=== PATIENT | male | born 1990 | race Caucasian/White ===

== ENCOUNTER 2022-12-21 09:59 | Emergency (ER) | payer OTHER, SELFPAY ==
[2022-12-21 10:03] VITALS: BP 138/85; PULSE 62; RESP 18; TEMP 36.6; O2SAT 99; BMI 31.2
--- NOTE | 2022-12-21 10:13 | ED.DENTAL1 ---
HPI - Dental/Oral General Chief complaint: Dental/Oral Stated complaint: DENTAL Time Seen by Provider: 12/21/22 10:13 Source: patient Mode of arrival: walk-in Limitations: no limitations History of Present Illness HPI Narrative: pt presents to emergency department complaining of left tooth 19 pain. Patient states tooth has been back for a while however yesterday started hurting him. He has taken [id number] medications without any relief. States one year ago he had the same thing happen and he got better after the give him antibiotics. Denies any fever, swelling, difficulty swallowing. Patient is working and have an appointment with a dentist. Related Data Previous Rx's Medication Instructions Recorded amoxicillin 500 mg capsule 500 mg PO TID 10 days #30 caps 12/21/22 tramadol 50 mg tablet 50 mg PO Q8H PRN pain 5 days #14 12/21/22 tabs Allergies Allergy/AdvReac Type Severity Reaction Status Date / Time No Known Drug Allergies Allergy Verified 12/21/22 10:07 Review of Systems ROS Status of ROS 10 or more systems reviewed and unremarkable except as noted in history and below PFSH PFS Social History Smoking status: Former smoker Exam Narrative Exam Narrative: Nurses notes and vital signs reviewed and patient is not hypoxic. General: The patient is comfortable, alert and oriented x3, well appearing, non toxic in no apparent distress. Head: Atraumatic and normocephalic. Eyes: Normal conjunctiva ENT: The oropharynx is normal. No pharyngeal erythema, uvular edema, tonsillar exudates, asymmetry or trismus. Uvula is midline. Mouth is normal to inspection with the exception of a pain on percussion of the tooth #19 and evidence of dental caries With erosion of the enamel. There is no evidence of facial asymmetry or abscess formation. Floor of the mouth is soft. No tenderness in the submental or submandibular space. No tongue elevation or deviation. The patient has no evidence of periapical abscess, gingivitis or other acute pathology. Airway is patent. Neck: The neck demonstrates normal range of motion. No meningeals signs are present. No stridor. No masses or lymphandenopathy noted. Respiratory: No acute distress, lungs are clear to auscultation, no wheezing, rhonchi, or rales noted. No stridor or retractions are noted. Cardiovascular: Regular rate and rhythm Skin: The skin exam shows no evidence of rashes Neuro: Alert and oriented x4, normal speech Lymphatic: No cervical lymphadenopathy Constitutional Vital Signs, click to edit/add: Last Vital Signs Temp 98 F 12/21/22 10:03 Pulse 62 12/21/22 10:03 Resp 18 12/21/22 10:03 BP 138/85 12/21/22 10:03 Pulse Ox 99 12/21/22 10:03 O2 Del Method Room Air 12/21/22 10:03 Course Vital Signs Vital signs: Vital Signs Temperature 98 F 12/21/22 10:03 Pulse Rate 62 12/21/22 10:03 Respiratory Rate 18 12/21/22 10:03 Blood Pressure 138/85 12/21/22 10:03 Pulse Oximetry 99 12/21/22 10:03 Oxygen Delivery Method Room Air 12/21/22 10:03 Temperature 98 F 12/21/22 10:03 Pulse Rate 62 12/21/22 10:03 Respiratory Rate 18 12/21/22 10:03 Blood Pressure 138/85 12/21/22 10:03 Pulse Oximetry 99 12/21/22 10:03 Oxygen Delivery Method Room Air 12/21/22 10:03 MDM - Dental/Oral MDM Narrative Medical decision making narrative: History and physical consistent with dental caries, there is no drainable abscess. Patient was started on clindamycin. A prescription for tramadol. Advised not to operate heavy machinery [address] while taking tramadol.Patient will follow up with dentist. No additional indication for emergent studies at this time. I answered all questions. Discussed discharge instructions including standard anticipatory guidance and what should prompt a return to the emergency department, including if they get worse are not getting better or develops any new or concerning symptoms. I've given them specific time frame in which to follow-up, and who to follow-up with. The patient demonstrates understanding. Patient is nontoxic and stable for discharge with outpatient follow-up. This note was created with the assistance of a speech recognition program. Although the intention is to generate documents that actually reflects the content of the visit, no guarantees can be provided that every mistake has been identified and corrected by editing. Differential Diagnosis Differential diagnosis: Likely gingival abscess, dental caries, toothache, dental abscess and fracture of tooth Discharge Plan Discharge Chief Complaint: Dental/Oral Clinical Impression: Dental caries Patient Disposition: Home, Self-Care Time of Disposition Decision: 10:16 Condition: Good Mode of Transportation: Private Vehicle Prescriptions / Home Meds: New amoxicillin 500 mg capsule 500 mg PO TID 10 Days Qty: 30 0RF tramadol 50 mg tablet 50 mg PO Q8H PRN (Reason: pain) 5 Days Qty: 14 0RF Instructions: Toothache (ED) Stand Alone Forms: Portal Instructions Referrals: MARLENE PEREZ APRN [Physician] - 1 week
[2022-12-21] MEDS: ACETAMINOPHEN 500 MG TABLET 1000 MG PO (10:52)
== END 2022-12-21 10:49 | disposition home or self-care (01) ==
PROVIDERS: Emergency Provider Emergency Medicine
DX: K02.9 Dental caries, unspecified (principal); Z87.891 Personal history of nicotine dependence
CPT/HCPCS: 99282

== ENCOUNTER 2023-10-25 07:16 | Emergency (ER) | payer OTHER, SELFPAY ==
[2023-10-25 07:18] VITALS: BP 134/87; PULSE 98; TEMP 36.5; O2SAT 98; BMI 71.6
--- NOTE | 2023-10-25 07:34 | ED.SKABFB1 ---
HPI - Skin/Abscess/Foreign Bdy General Chief complaint: Skin/Abscess/Foreign Body Stated complaint: RASH Time Seen by Provider: 10/25/23 07:34 Source: patient Mode of arrival: walk-in History of Present Illness HPI narrative: This patient's very concerned about having poison michlele. 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 He was wearing gloves and glasses yesterday but was around a lot of poison michelle. Has been this for many years. He is concerned that he might get it in his eyes because his eyelids are quite red and swollen now. He has no ocular complaints. He does not have contact anyplace else on his body. Again there is no purulent drainage from his eyes or conjunctivitis or photosensitivity. No other complaints today. He does not have diabetes or hypertension. Related Data Previous Rx's ?Medication ?Instructions ?Recorded amoxicillin 500 mg capsule 500 mg PO TID 10 days #30 caps 12/21/22 tramadol 50 mg tablet 50 mg PO Q8H PRN pain 5 days #14 12/21/22 tabs Allergies Allergy/AdvReac Type Severity Reaction Status Date / Time No Known Drug Allergies Allergy Verified 12/21/22 10:07 [facility] Social History Smoking status: Former smoker Exam Narrative Exam Narrative: Well-hydrated well-nourished male. His upper eyelids and periorbital area are mildly erythematous and itchy and swollen. There is no vesicles or ulcerations. The conjunctiva the sclera and the eye itself are completely normal. The rest the facial structures and skin are normal. Constitutional Vital Signs, click to edit/add: Last Vital Signs Temp 97.7 F 10/25/23 07:18 Pulse 98 H 10/25/23 07:18 Resp 18 10/25/23 07:18 BP 134/87 10/25/23 07:18 Pulse Ox 98 10/25/23 07:18 Course Vital Signs Vital signs: Vital Signs Temperature 97.7 F 10/25/23 07:18 Pulse Rate 98 H 10/25/23 07:18 Respiratory Rate 18 10/25/23 07:18 Blood Pressure 134/87 10/25/23 07:18 Pulse Oximetry 98 10/25/23 07:18 Temperature 97.7 F 10/25/23 07:18 Pulse Rate 98 H 10/25/23 07:18 Respiratory Rate 18 10/25/23 07:18 Blood Pressure 134/87 10/25/23 07:18 Pulse Oximetry 98 10/25/23 07:18 MDM - Skin/Abscess/Foreign Bdy MDM Narrative Medical decision making narrative: Patient is requesting steroids because he is known to get poison michelle quite severely. He had known exposure and already has some swelling of the skin around the periorbital area. This is not cellulitis. He is afebrile and looks very healthy. He is requesting oral steroids Discharge Plan Discharge Stand Alone Forms: Portal Instructions Chief Complaint: Skin/Abscess/Foreign Body Clinical Impression: Contact dermatitis Patient Disposition: Home, Self-Care Time of Disposition Decision: 07:36 Prescriptions / Home Meds: No Action amoxicillin 500 mg capsule 500 mg PO TID 10 Days Qty: 30 0RF tramadol 50 mg tablet 50 mg PO Q8H PRN (Reason: pain) 5 Days Qty: 14 0RF Print Language: Mauritian Additional Instructions: Cold compresses with Epsom salt to the affected area Referrals: Physician,Non-Staff, MD [Primary Care Provider] - 1 week
== END 2023-10-25 07:42 | disposition home or self-care (01) ==
PROVIDERS: Emergency Provider Emergency Medicine Emergency Medical Services
DX: L25.9 Unspecified contact dermatitis, unspecified cause (principal)
CPT/HCPCS: 99283

== ENCOUNTER 2024-01-05 20:28 | Emergency (ER) | payer OTHER, SELFPAY ==
[2024-01-05 20:44] VITALS: BP 155/96; PULSE 54; TEMP 36.6; O2SAT 97; BMI 33.1
--- NOTE | 2024-01-05 20:47 | PC.NURSE ---
Pain to right lower jaw from tooth infection.
--- NOTE | 2024-01-05 20:54 | ED_ITS ---
HPI - Dental/Oral General Chief complaint: Dental/Oral Stated complaint: SEVERE PAIN WITH MOUTH/TOOTH INFECTION Time Seen by Provider: 01/05/24 20:43 Source: patient Mode of arrival: walk-in Limitations: no limitations History of Present Illness HPI Narrative: Patient is a 33-year-old male who presents to the emergency department for the evaluation of dental pain that began today. He was seen in this emergency [facility] 1 year ago for dental pain, he states he had leftover amoxicillin so he took his first dose of that tonight but he states his pain is 1000/10 although he did not take any medications today to help with his pain. He feels his face is slightly swollen, no drainage from the tooth. He does not have a dentist. He denies fevers or vomiting. Related Data Home Medications ?Medication ?Instructions ?Recorded ?Confirmed No Known Home Medications 01/05/24 01/05/24 Previous Rx's ?Medication ?Instructions ?Recorded clindamycin HCl 150 mg capsule 300 mg (2 x 150 mg) PO Q6H 10 days 01/05/24 #80 caps ketorolac 10 mg tablet 10 mg PO TID PRN pain #10 tabs 01/05/24 tramadol 50 mg tablet 50 mg PO Q6H PRN pain 3 days #12 01/05/24 tabs Allergies Allergy/AdvReac Type Severity Reaction Status Date / Time No Known Drug Allergies Allergy Verified 01/05/24 21:01 Review of Systems ROS Constitutional Denies: fever or chills Ears, nose, mouth, and throat Reports: mouth pain; Denies: throat pain or nasal congestion Respiratory Denies: shortness of breath Gastrointestinal Denies: nausea or vomiting Integumentary/Breast Denies: rash Hematologic/Lymphatic Denies: easy bruising or easy bleeding PFSH PFS Social History Smoking status: Former smoker Exam Narrative Exam Narrative: Gen.: Awake, alert, in no distress Head: Normocephalic, atraumatic ENT: Moist mucous membranes, multiple dental caries. Tooth #29 is eroded to the gumline, no abscess or drainage noted. No redness or swelling under the tongue. Clear speech. No noted mandibular or maxillary swelling Respiratory: No respiratory distress Extremities: Moves extremities equally Psych: Normal mood and affect Neuro: No focal neuro deficit Skin: Warm, dry, intact Constitutional Vital Signs, click to edit/add: Last Vital Signs Temp 98.6 F 01/05/24 21:01 Pulse 55 L 01/05/24 21:01 Resp 16 01/05/24 21:01 BP 154/98 H 01/05/24 21:01 Pulse Ox 100 01/05/24 21:01 O2 Del Method Room Air 01/05/24 21:01 Course Vital Signs Vital signs: Vital Signs Temperature 97.9 F 01/05/24 20:44 Pulse Rate 54 L 01/05/24 20:44 Respiratory Rate 18 01/05/24 20:44 Blood Pressure 155/96 H 01/05/24 20:44 Pulse Oximetry 97 01/05/24 20:44 Oxygen Delivery Method Room Air 01/05/24 20:44 Temperature 98.6 F 01/05/24 21:01 Pulse Rate 55 L 01/05/24 21:01 Respiratory Rate 16 01/05/24 21:01 Blood Pressure 154/98 H 01/05/24 21:01 Pulse Oximetry 100 01/05/24 21:01 Oxygen Delivery Method Room Air 01/05/24 21:01 MDM - Dental/Oral MDM Narrative Medical decision making narrative: Patient treated with tramadol, clindamycin. He was instructed to throw away leftover antibiotics. Follow-up with a dentist. Topical analgesia provided. Return to the ER if symptoms change or worsen SUPERVISED APC VISIT, PHYSICIAN ATTESTATION: Based on the medical record the care appears appropriate. ? Medical Records Attestation: I reviewed the patient's medical records. Discharge Plan Discharge Stand Alone Forms: Portal Instructions Chief Complaint: Dental/Oral Clinical Impression: Dental caries, Toothache Patient Disposition: Home, Self-Care Time of Disposition Decision: 21:01 Condition: Good Prescriptions / Home Meds: New clindamycin HCl 150 mg capsule 300 mg PO Q6H 10 Days Qty: 80 0RF tramadol 50 mg tablet 50 mg PO Q6H PRN (Reason: pain) 3 Days Qty: 12 0RF Rx Instructions: DX: K08.89 ketorolac 10 mg tablet 10 mg PO TID PRN (Reason: pain) Qty: 10 0RF No Action No Known Home Medications Print Language: [place] Instructions: Toothache (ED) Additional Instructions: Follow up with dentist Referrals: Physician,Non-Staff, [Primary Care Provider] - 1 week
[2024-01-05 21:01] VITALS: BP 154/98; PULSE 55; TEMP 37; O2SAT 100; BMI 32.5
--- OUTSIDE RECORDS SUMMARY | 2024-01-05 21:01 | XMS_ITS | CCD ---
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 75 Temp 97.8 F (36.6 C) Resp 18 Wt 117.9 kg (260 lb) SpO2 97% BMI 32.50 kg/m? Smoking Status Former BSA 2.5 m? Constitutional: Well-developed male sitting up comfortably. HENT: Head is atraumatic. Mucous membranes are moist, there is no lip or tongue swelling. There is no stridor, no drooling, no trismus. Eyes: Pupils are equal and reactive to light. No scleral icterus or remarkable injection. Conjunctivae pink. Extraocular movements are intact. There is some swelling noted around the eyes. There is no pain with extraocular movements. There is no redness or drainage. There are no lesions. No erythema or abscess or fluctuance. Neck: Normal range of motion. No tenderness. Cardiovascular: Normal heart rate. Normal rhythm. No murmurs, No rubs. No gallops. Pulmonary/Chest: Normal breath sounds. No respiratory distress. No wheezing. Abdomen: Soft, No tenderness. There is no guarding or rebound tenderness. : Exam done with RN Striper Spray Gun at bedside. Mall area of erythema noted to the shaft of the penis. No hernias. Bilaterally descended testicles and normal lie. No penile lesions or chancres. No regional lymphadenopathy. Normal cremesteric reflex. No signs of phimosis or paraphimosis. Back: There is no restriction in range of motion. There is no swelling; redness; or CVA tenderness. The spine is non tender. Extremities: Normal range of motion. Intact distal pulses symmetric and equal upper vs lower. Neurologic: The patient is awake and alert. No focal central or lateralizing neuro deficits. Skin: Warm; Adequate skin turgor. Excoriations noted to the left lower abdomen. Psychiatric: Affect normal Labs: Labs Reviewed - No data to display DIFFERENTIAL DIAGNOSIS: Based on the patient's history, physical exam, and associated clinical (more content not included)... Normal [facility] ED TRIAGEon 04-05-2022 [facility] Ed Triage Note ED Triage Note: Last filed note HNO ID: [id number] Author: David Mcdaniels RN Service: ? Author Type: Registered Nurse Filed: 04/05/222053 Note Text: Pt [facility] Pt recently exposed to poison giulia while working. Pt was seen at different facility yesterday received a steroid shot, after shower and nap he woke up with facial swelling and rash in groin. No other complaints noted. Normal [facility] ED Provider Noteson 04-04-20 ED Provider Notes Encounter Department : [facility] EMERGENCY ED Provider Notes by Ellen Stanley MD at 04/04/2022 11:52 AM Author: DEMETRIUS Sinhaervice: Emergency MedicineAuthor Type: ED Physician Filed: 04/05/2022 4:50 PMDate of Service: 04/04/2022 11:52 AMStatus: Signed Chief Engineer Research: Ellen Stanley MD (ED Physician) CHIEF COMPLAINT Chief Complaint Patient presents with -Poison Giulia Poison giulia in eyes, awoke this morning with this. HPI Peter Jones is a 31 y.o. male with a pertinent past medical history of anxiety and depression presenting with itchiness and puffiness about the eyes. He states that he was working outside over the last couple of days and was around poison giulia. He has had poison giulia before and had similar feelings around his eyes. Denies any actual eyeball pain, itching, drainage, vision changes. Some itching on his thighs but no rash. He took a benadryl with some relief. REVIEW OF SYSTEMS Constitutional: Denies fever, chills, fatigue, weakness, weight loss. Eyes: swelling and redness around the eyes. Denies pain, redness, drainage, visual changes. HEENT: Denies sore throat, congestion, drainage, ear pain, or hearing changes. Cardiovascular: Denies chest pain or palpitations. Respiratory: Denies SoB, cough, wheezing, or production of phlegm. GI: Denies pain, nausea, vomiting or diarrhea. : Denies hematuria, dysuria, urgency, frequency, or incontinence. Neuro: No reported syncope or dizziness. Denies headaches or stiff neck. No reported focal numbness or weakness. MSK: Denies any back, neck or extremity pain. No abnormal swelling. Skin: itching over thighs. No rashes. 10 point Review of Systems performed and are otherwise negative unless noted above. PAST MEDICAL HISTORY / FAMILY HISTORY Past Medical History: DiagnosisDate -Anxiety -Depression -Panic attacks Above past medical conditions reviewed and verified by me. SOCIAL HISTORY Social History Socioeconomic History -Marital status: Tobacco Use -Smoking status:Former Packs/day:1.00 Types:Cigarettes Quit date:04/11/2021 Years since quittin.9 -Smokeless tobacco:Former Vaping Use -Vaping Use:Former -Quit date:02/27/2019 Substance and Sexual Activity -Alcohol use:No -Drug use:Not Currently Types:Marijuana Comment: gummies -Sexual activity:Never Above social elements reviewed and verified by me. SURGICAL HISTORY History reviewed. No pertinent surgical history. CURRENT MEDICATIONS Outpatient Medications Marked as Taking for the 04/04/22 encounter (Hospital Encounter) MedicationSigDispenseRefill -diphenhydrAMINE (BENADRYL ALLERGY) 25 mg tabletTake 1 tablet (25 mg total) by mouth every 4 hours as needed for Allergies.24 tablet2 ALLERGIES No Known Allergies PHYSICAL EXAM VITAL SIGNS: ED Triage Vitals [04/04/22 0857] BP(!) 134/93 Temp97.7 ?F (36.5 ?C) Pulse70 Resp18 EnP571 % [id number] lb 4 oz (112.6 kg) [place] Coma Scale Score15 BMI (Calculated)31.1 General: The patient is well developed, well nourished and in no acute distress. Non-toxic appearing. Head: Normocephalic, atraumatic Eyes: No conjunctival injection, PERRL, and EOMI bilaterally. Mild bilateral periorbital swelling without lesions, tenderness, erythema, induration. ENT: No obvious oral lesions, MMM, uvula midline, no oropharyngeal erythema. Neck: supple, no obvious lymphadenopathy. Trachea midline. FRoM. Respiratory: No respiratory distress or stridor and speaking in full sentences. Equal chest rise bilaterally. Lungs clear to auscultation bilaterally without rales, rhonchi, or wheezing. Cardiovascular: Regular rate and rhythm without murmur, rub, or gallop. No peripheral edema in bilateral lower extremities. Equal radial pulses. Abdomen: Nondistended, soft with normal bowel sounds. No tenderness to palpation in all 4 quadrants. No guarding or rebound. Musculoskeletal: Full RoM in all extremities. No obvious deformities of all 4 extremities. Skin: Warm, dry. No rashes, lesions, or injuries noted. Neurological: Alert and Oriented X3. No gross focal deficits noted. Psychiatric: Normal thinking, cooperative patient EKG INTERPRETATION No results found for this visit on 04/04/22. ED COURSE / MEDICAL DECISION MAKING / DIFFERENTIAL DIAGNOSIS Peter Jones is a 31 y.o. male with swelling around eyes and concern for poison giulia exposure as described above. Afebrile, vitals stable, hemodynamically intact. Exam as above, notable for mild periorbital swelling but otherwise unremarkable. Allergies more likely. Poison giulia a possibility. No evidence of periorbital cellulitis, abscess, or septal cellulitis. Gave a dose of Solumedrol in the ED for symptoms and recommended use of benadryl and allergy medications as well as cool compresses and avoidance of itching the eyes. Discussed reasons to return to the ED and follow up with PCM. Patient in agreement with plan. Discharge (more content not included)... Normal [facility] ED Provider Noteson 01-04-20 ED Provider Notes Encounter Department : [facility] EMERGENCY ED Provider Notes by Jesenia Sol MD at 01/03/2022 8:51 PM Author: DEMETRIUS Herediaervice: -Author Type: ED Physician Filed: 01/03/2022 9:14 PMDate of Service: 01/03/2022 8:51 PMStatus: Signed Chief Engineer Research: Jesenia Sol MD (ED Physician) CHIEF COMPLAINT Chief Complaint Patient presents with -Dental Pain HPI Peter Jones is a 31 y.o. male who presents with complaints of left upper left lower dental pain. Is a 31-year-old male comes emerged department complaints of left upper and left lower lateral lower dental pain. The patient states that pains been going on about 3 days sharp stabbing in nature nonradiating constant. Is been taking Tylenol at home. The patient states last time he had this they placed him on antibiotics and steroid and he got better. He did not follow-up with a dentist after that. Patient states his pain is 9 out of 10. No fever nausea vomiting diarrhea any other symptoms. REVIEW OF SYSTEMS CONSTITUTIONAL:Denies fever, chills EYES: Denies vision changes ENT: Denies sore throat or ear pain CARDIOVASCULAR: Denies chest pain, palpitations RESPIRATORY: Denies cough or shortness of breath GI: Denies abdominal pain, nausea, vomiting, or diarrhea : Denies urinary frequency, urgency or dysuria MS:Denies back pain SKIN: Denies rash NEUROLOGIC: Denies headache, focal weakness or sensory changes ENDOCRINE: Denies polyuria or polydypsia LYMPHATIC: Denies swollen glands PSYCHIATRIC: Denies depression, suicidal ideation or homicial ideation PAST MEDICAL HISTORY Past Medical History: DiagnosisDate -Anxiety -Depression -Panic attacks FAMILY HISTORY No family history on file. SOCIAL HISTORY Social History Socioeconomic History -Marital status: Tobacco Use -Smoking status:Former Smoker Packs/day:1.00 Types:Cigarettes Quit date:04/11/2021 Years since quittin.7 -Smokeless tobacco:Former User Vaping Use -Vaping Use:Former -Quit date:02/27/2019 Substance and Sexual Activity -Alcohol use:No -Drug use:Not Currently Types:Marijuana Comment: gummies -Sexual activity:Never SURGICAL HISTORY History reviewed. No pertinent surgical history. CURRENT MEDICATIONS Outpatient Medications Marked as Taking for the 01/03/22 encounter (Hospital Encounter) MedicationSigDispenseRefill -amoxicillin-clavulanate (AUGMENTIN) 875-125 mg tabletTake 1 tablet by mouth 2 times a day for 10 days.20 tablet0 -predniSONE (DELTASONE) 20 mg tabletTake 3 tablets (60 mg total) by mouth daily for 4 days.12 each0 ALLERGIES No Known Allergies PHYSICAL EXAM VITAL SIGNS: ED Triage Vitals [01/03/222015] BP143/100 Temp98 ?F (36.7 ?C) Pulse59 Resp18 YuU2064 % [id number] lb (113.4 kg) Art Coma Scale Score15 BMI (Calculated)31.3 Constitutional: Non-toxic appearance HENT: Normocephalic, Atraumatic, Bilateral external ears normal, Oropharynx moist, mild erythema noted to the left upper lateral and left lower lateral gumline no exudate, poor dentition throughout no oral exudates, Nose normal Eyes: Conjunctiva normal, No discharge Neck: Normal range of motion, No tenderness, No nuchal rigidity Lymphatic: No lymphadenopathy noted Cardiovascular: Normal heart rate, Normal rhythm, No murmurs Thorax AND Lungs: Lung sounds normal Abdomen: Bowel sounds present, Soft, Nontender Skin: Warm, Dry, No rash Back: No CVA tenderness Rectal / Genital: Deferred Extremities: Intact distal pulses, No edema, No tenderness, No cyanosis Musculoskeletal: Good range of motion in all major joints. No major deformities noted Neurologic: Normal motor function, Normal sensory function, No focal deficits noted Psychiatric: Affect normal RADIOLOGY/PROCEDURES None Last Imaging results No results found for this visit on 01/03/22. LABS None No data to display COURSE AND MEDICAL DECISION MAKING Blood Pressure 143/100 Pulse 59 Temperature 98 ?F (36.7 ?C) Respiration 18 Height 6' 3 (1.905 m) Weight 250 lb (113.4 kg) Oxygen Saturation 100% Body Mass Index 31.25 kg/m? Is a 22-year-old male comes emerged department complaints of left upper and left lower dental pain over the last 3 days. No fever nausea vomiting diarrhea any other symptoms. On arrival to emergency room patient vital signs all found to be within normal limits but on physical examination the patient does have lateral gum erythema of the left upper and left lower. Poor dentition throughout. Likely early abscess. Patient was placed on Augmentin. Patient states he has had steroids in the past that has helped as well. Patient was placed on steroids from the emergency department. He can alternate Tylenol Motrin at home. Follow-up with dental and return if any symptoms change. No critical Care Time FINAL IMPRESSION ICD-10-CM 1.Dental abscess K04.7 Electronically signed by: Jesenia Sol MD, 8/ (more content not included)... Normal [facility] ED Provider Noteson 10-30-19 ED Provider Notes Encounter Department : [facility] EMERGENCY ED Provider Notes by Jt Garner MD at 10/29/2021 11:10 AM Author: DEMETRIUS Osegueraervice: -Author Type: ED Physician Filed: 10/29/2021 11:13 AMDate of Service: 10/29/2021 11:10 AMStatus: Signed Chief Engineer Research: Jt Garner MD (ED Physician) History Chief Complaint Patient presents with -Dizziness The history is provided by the patient. Patient presents with severe anxiety. He notes this has been ongoing for the last 8 months. He notes he has been to the ED numerous times with this. He was at work today. He works at [employer]. He notes that it is a stressful job. He states all of a sudden he got dizzy and blurred vision and had to leave. He does state he thinks it was all his anxiety. He states he had a come here as he always thinks he is dying. He notes he has never had a CT scan or MRI of his brain. He wonders if he may have a brain tumor but at the same time realizes that is unlikely as he notes he has never had any headaches or other neurologic symptoms. Patient notes he is on hydroxyzine which she tries to take rarely. He notes he follows with his PCP Dr. Glenroy Kerr. He notes he had been on Zoloft and Wellbutrin to try to help with this but both of those seem to make it worse. He was on a third medication that he does not recall the name of. He notes difficulty getting to see Dr. Kerr as he now lives in [place] and it is [place] [address]. He is looking for a new PCP but states no one is taking patients. He does follow with a therapist that he speaks to once a week. This does help some. He has been doing lifestyle modifications which he notes helps some but continues to have the symptoms. He notes he has been exercising, losing weight and going on walks with his son. No Known Allergies Past Medical History: DiagnosisDate -Anxiety -Depression -Panic attacks History reviewed. No pertinent surgical history. No family history on file. Social History Tobacco Use -Smoking status:Former Smoker Packs/day:1.00 Types:Cigarettes Quit date:04/11/2021 Years since quittin.5 -Smokeless tobacco:Former User Vaping Use -Vaping Use:Former -Quit date:02/27/2019 Substance Use Topics -Alcohol use:No -Drug use:Not Currently Types:Marijuana Comment: gummies Review of Systems Constitutional: Negative. Negative for diaphoresis and fever. HENT: Negative. Eyes: Positive for visual disturbance. Respiratory: Negative. Cardiovascular: Negative. Gastrointestinal: Negative. Musculoskeletal: Negative. Skin: Negative. Neurological: Positive for dizziness. Negative for headaches. Psychiatric/Behavioral: Negative for suicidal ideas. The patient is nervous/anxious. All other systems reviewed and are negative. Radiology/Labs No data to display No results found for this visit on 10/29/21. Physical Exam BP 129/93 Pulse 78 Temp 97.5 ?F (36.4 ?C) Resp 18 Ht 6' 3 (1.905 m) Wt 260 lb (117.9 kg) SpO2 98% BMI 32.50 kg/m? Physical Exam Vitals and nursing note reviewed. Constitutional: General: He is not in acute distress. Appearance: Normal appearance. HENT: Head: Normocephalic and atraumatic. Right Ear: External ear normal. Left Ear: External ear normal. Nose: Nose normal. Mouth/Throat: Mouth: Mucous membranes are moist. Pharynx: Oropharynx is clear. Eyes: General: Right eye: No discharge. Left eye: No discharge. Extraocular Movements: Extraocular movements intact. Conjunctiva/sclera: Conjunctivae normal. Pupils: Pupils are equal, round, and reactive to light. Cardiovascular: Rate and Rhythm: Normal rate and regular rhythm. Heart sounds: No murmur heard. Pulmonary: Effort: Pulmonary effort is normal. No respiratory distress. Breath sounds: Normal breath sounds. Musculoskeletal: General: No swelling. Normal range of motion. Cervical back: Normal range of motion and neck supple. Skin: General: Skin is warm and dry. Findings: No rash. Neurological: Mental Status: He is alert. Cranial Nerves: Cranial nerves are intact. Sensory: Sensation is intact. Motor: Motor function is intact. Psychiatric: Behavior: Behavior normal. Thought Content: Thought content normal. Comments: Anxious ED Course Procedures MDM Medical records reviewed. Patient with frequent ED visits for similar complaints. He has had normal labs. I did have a prolonged discussion with him regarding his symptoms. I do feel this is all related to anxiety. Discussed importance of establishing himself with a PCP that he can see on a ongoing frequent basis. We will provide him with resources for this. Faculty Note Final Impression ICD-10-CM 1.Anxiety F41.9 Electronically signed by: Jt Garner MD, 10/29/2021 Please note that this chart was generated using [employer] software. Some errors in ward attendant may have occurred. Jt Cox (more content not included)... Normal [facility] CBC W/DIFFon 10-23-2021 BASOPHILS ABS AUTO 0.0 K/uL Normal 0.0-0.1 [facility] Comment on above: Performed By: #### L [id number] #### [facility] [address] [place] [address] Basophils/100 WBC (Bld) 0.2 % Normal [facility] Comment on above: Performed By: #### L [id number] #### [facility] [address] [place] [address] CBC W/DIFF Normal [facility] Comment on above: Result Comment: Rele ase to patient->Immediate Performed By: #### L [id number] #### [facility] [address] [place] [address] Eosinophils (Bld) [#/Vol] 0.3 10*3/uL Normal 0.0-0.4 [facility] Comment on above: Performed By: #### L AB17 #### [address] Eosinophils/100 WBC (Bld) 4.4 % Normal [facility] Comment on above: Performed By: #### L AB17 #### [address] Erythrocyte distribution width (RBC) [Ratio] 13.4 % Normal 11.7-15.2 [facility] Comment on above: Performed By: #### L AB17 #### [address] Hematocrit (Bld) [Volume fraction] 46.2 % Normal 39.0-51.5 [facility] Comment on above: Performed By: #### L AB17 #### [address] Hemoglobin (Bld) [Mass/Vol] 15.5 g/dL Normal 13.1-17.6 [facility] Comment on above: Performed By: #### L AB17 #### [address] Lymphocytes (Bld) [#/Vol] 1.6 10*3/uL Normal 0.8-3.6 [facility] Comment on above: Performed By: #### L AB17 #### [address] Lymphocytes/100 WBC (Bld) 28.4 % Normal [facility] Comment on above: Performed By: #### L AB17 #### [address] MCH (RBC) [Entitic mass] 30.1 pg Normal 28.4-33.4 [facility] Comment on above: Performed By: #### L AB17 #### [address] MCHC (RBC) [Mass/Vol] 33.5 g/dL Normal 31.1-37.0 [facility] Comment on above: Performed By: #### L AB17 #### [address] [address] [facility] MCV (RBC) [Entitic vol] 89.7 fL Normal 85.0-99.0 [facility] Comment on above: Performed By: #### L AB17 #### [place] [id number] [facility] Monocytes (Bld) [#/Vol] 0.4 10*3/uL Normal 0.3-0.9 [facility] Comment on above: Performed By: #### L AB17 #### [address] Monocytes/100 WBC (Bld) 6.9 % Normal [facility] Comment on above: Performed By: #### L AB17 #### [address] NEUTROPHIL ABS AUTO 3.4 K/uL Normal 2.0-7.3 [facility] Comment on above: Performed By: #### L AB17 #### [place] [id number] [facility] Neutrophils/100 WBC (Bld) 60.2 % Normal [facility] Comment on above: Performed By: #### L AB17 #### [place] [id number] [facility] Platelets (Bld) [#/Vol] 117 10*3/uL Abnormal 154-393 [facility] Comment on above: Performed By: #### L AB17 #### [address] [address] [facility] RBC (Bld) [#/Vol] 5.15 10*6/uL Normal 4.30-5.86 [facility] Comment on above: Performed By: #### L AB17 #### [facility] [address] [place] [address] WBC (Bld) [#/Vol] 5.7 10*3/uL Normal 4.0-10.5 [facility] Comment on above: Performed By: #### L AB17 #### [facility] [address] [place] [address] COMPREHENSIVE METABOLIC PANE Cristino 10-23-2021 Albumin [Mass/Vol] 4.2 g/dL Normal 3.5-5.7 [facility] Comment on above: Performed By: #### L [id number] #### [facility] [address] [place] [address] Albumin/Globulin [Mass ratio] 1.6 {ratio} Normal 1.0-2.0 [facility] Comment on above: Performed By: #### L AB17 #### [address] ALP [Catalytic activity/Vol] 40 U/L Normal 34-104 [facility] Comment on above: Result Comment: Plea note the new reference range for this test. Performed By: #### L AB17 #### [address] ALT [Catalytic activity/Vol] 13 U/L Normal 7-52 [facility] Comment on above: Result Comment: Due to new chemistry methodology at some [facility] labs, please re-baseline this test for any patients being transferred from a different location. Performed By: #### L AB17 #### [facility] [address] [place] [address] Anion gap [Moles/Vol] 9 mmol/L Normal 7-16 [facility] Comment on above: Performed By: #### L AB17 #### [facility] [address] [place] [address] AST [Catalytic activity/Vol] 14 U/L Normal 13-39 [facility] Comment on above: Performed By: #### L AB17 #### [facility] [address] [place] [address] Bilirubin [Mass/Vol] 0.5 mg/dL Normal 0.3-1.0 [facility] Comment on above: Performed By: #### L AB17 #### [facility] [address] [place] [address] Calcium [Mass/Vol] 9.4 mg/dL Normal 8.6-10.2 [facility] Comment on above: Performed By: #### L AB17 #### [facility] [address] [place] [address] Chloride [Moles/Vol] 109 mmol/L Abnormal 98-107 [facility] Comment on above: Performed By: #### L AB17 #### [facility] [address] [place] [address] CO2 [Moles/Vol] 24 mmol/L Normal 21-31 [facility] Comment on above: Performed By: #### L AB17 #### [facility] [address] [place] [address] COMPREHENSIVE METABOLIC PANEL Normal [facility] Comment on above: Result Comment: Rele ase to patient->Immediate Performed By: #### L AB17 #### [facility] [address] [place] [address] Creatinine [Mass/Vol] 1.1 mg/dL Normal 0.7-1.3 [facility] Comment on above: Performed By: #### L AB17 #### [facility] [address] [place] [address] GFR MDRD NON AF AMER >60 Normal >60 [facility] Comment on above: Result Comment: GFR is estimated using creatinine, age, gender, and race. Patient's values should be interpreted as a trend. For additional information: [email or web address] Performed By: #### L AB17 #### [facility] [address] [place] [address] GFR/1.73 sq M.predicted among blacks MDRD (S/P/Bld) [Vol rate/Area] mL/min/{1.73_m2} Normal >60 [facility] Comment on above: Result Comment: GFR is estimated using creatinine, age, gender, and race. Patient's values should be interpreted as a trend. For additional information: [email or web address] Performed By: #### L AB17 #### [facility] [address] [place] [id number] [facility] Globulin (S) [Mass/Vol] 2.7 g/dL Normal 2.6-4.2 [facility] Comment on above: Performed By: #### L [id number] #### [facility] [address] [place] [id number] [facility] Glucose [Mass/Vol] 97 mg/dL Normal 74-109 [facility] Comment on above: Performed By: #### L [id number] #### [facility] [address] [place] [id number] [facility] Potassium [Moles/Vol] 3.6 mmol/L Normal 3.5-5.3 [facility] Comment on above: Performed By: #### L [id number] #### [facility] [address] [place] [id number] [facility] Protein [Mass/Vol] 6.9 g/dL Normal 6.0-8.3 [facility] Comment on above: Performed By: #### L [id number] #### [facility] [address] [place] [id number] [place] Sodium [Moles/Vol] 142 mmol/L Normal 136-145 [facility] Comment on above: Performed By: #### L [id number] #### [facility] [address] [place] [address] [place] Urea nitrogen [Mass/Vol] 12 mg/dL Normal 7-25 [facility] Comment on above: Performed By: #### L [id number] #### [facility] [address] [place] [id number] [facility] Consultson 10-23-2021 Consults Encounter Department : [facility] EM[facility]GENCY Consults by BETSY Marinelli at 10/23/2021 11:32 AM Author: ALBERTINA Marinelliervice: Crisis WorkerAuthor Type: CAROL ANN Specialist Filed: 10/23/2021 11:32 AMDate of Service: 10/23/2021 11:32 AMStatus: Signed Chief Engineer Research: BETSY Marinelli (CAROL ANN Specialist) BEHAVIORAL HEALTH ASSESSMENT TEAM CONSULT DATE: 10/23/21 Consult: Community Resources Referral - Mental Health Outpatient Identifying Information: 31 y.o. male Narrative: Request for Mental Health resources. Attending MD denies the need for assessment and is requesting resources to be placed in DC instructions. Physician Contact: Dr. Dunlap Disposition: Placed Mental Health resources in DC instructions. Thank you for involving The Behavioral Health Assessment Team in the care of your patient. Please call [phone] for any needs or questions Normal [facility] ED Provider Noteson 10-24-19 ED Provider Notes Encounter Department : [facility] EM[facility] ED Provider Notes by Wei Dunlap MD at 10/23/2021 11:12 AM Author: DEMETRIUS Samuelservice: Emergency MedicineAuthor Type: ED Physician Filed: 10/23/2021 11:17 AMDate of Service: 10/23/2021 11:12 AMStatus: Signed Chief Engineer Research: Wei Dunlap MD (ED Physician) COURSE AND MEDICAL DECISION MAKING Pertinent Labs AND Imaging studies reviewed. (See chart for details) ED Triage Vitals [10/23/21 0944] BP141/89 Temp97.2 ?F (36.2 ?C) Pulse64 Resp18 PuJ969 % Fazqdd395 lb 3.2 oz (118 kg) [place] Coma Scale Score15 BMI (Calculated)32.6 MEDS GIVEN IN ED: Medications - No data to display Presented emergency department with report of needing his thyroid checked. Patient has been ruminating on the need for thyroid labs over the course of the past few weeks to months. Patient has a severe anxiety disorder. Patient has been through multiple different medications without any improvement or have discontinued secondary to side effects. Patient reportedly sees therapist regularly. Patient states that he has had multiple tests done that have not determined why he feels like this. Patient's recent feelings of fatigue and inability to get warm and brittle hair caused him to feel his thyroid was out of whack. Patient thyroid is normal. Patient's exam is benign. Patient' needs follow-up with primary care physician. Patient was asked to follow-up as directed. Behavioral health was contacted and patient was given additional resources for outpatient management. Patient asked to follow-up with primary care additionally. Patient did voice understanding of the above follow-up and return instruction. FINAL IMPRESSION ICD-10-CM 1.Anxiety state F41.1 New Prescriptions No medications on file CHIEF COMPLAINT Chief Complaint Patient presents with -Medical Problem HPI History obtained from patient Peter Jones is a 31 y.o. male who presents to the Emergency Department with complaints of needing a thyroid test. Patient called up here earlier requesting to be seen for thyroid test. Patient came him and states he needs a thyroid test. Patient denies specific complaints today. However, over the course of the past few months, patient has felt cold quite often. Patient reports he feels fatigued. Patient states he has severe anxiety and despite counseling and attempts at meds which have all failed, patient remains profoundly anxious. Patient cannot elucidate why he is anxious. Patient denies any homicidal or suicidal ideation. Patient denies any hallucinations. Patient had blood work done by his family doctor. Patient called his family doctor today asking for more blood work and was told if he needed a rapid assessment of his thyroid that he should go to the emergency room. Patient presented to the emergency room for rapid assessment of his thyroid. Patient denies any chest pain tightness heaviness. Patient denies any current shortness of breath. Patient [place] any abdominal pain or change in bowel bladder function. REVIEW OF SYSTEMS Constitutional: No fever, chills or recent illness. Eye: No photophobia or visual changes. HENT: No earache or sore throat. Resp: No SOB or productive cough. Cardio: No chest pain or palpatations. GI: No abdominal pain, nausea, vomiting, constipation or diarrhea. No melena. : No dysuria, urgency or frequency. Musculoskeletal: No muscle aches, joint pain or back pain. Neuro: No headaches, focal weakness or sensory changes. Skin: No rashs, No itching Lymphatic: No swollen glands. Endocrine: No polyuria or polydipsia. Psychiatric: No depression, homicidal or suicidal ideation. PAST MEDICAL HISTORY Past Medical History: DiagnosisDate -Anxiety -Depression -Panic attacks FAMILY HISTORY No family history on file. SOCIAL HISTORY Social History Socioeconomic History -Marital status: Tobacco Use -Smoking status:Former Smoker Packs/day:1.00 Types:Cigarettes Quit date:04/11/2021 Years since quittin.5 -Smokeless tobacco:Former User Vaping Use -Vaping Use:Former -Quit date:02/27/2019 Substance and Sexual Activity -Alcohol use:No -Drug use:Not Currently Types:Marijuana Comment: gummies -Sexual activity:Never SURGICAL HISTORY History reviewed. No pertinent surgical history. CURRENT MEDICATIONS Outpatient Medications Marked as Taking for the 10/23/21 encounter (Hospital Encounter) MedicationSigDispenseRefill -hydrOXYzine HCL (ATARAX) 25 mg tabletTake 25 mg by mouth every 4 hours as needed for Itching. ALLERGIES No Known Allergies PHYSICAL EXAM VITAL SIGNS: ED Triage Vitals [10/23/21 0944] BP141/89 Temp97.2 ?F (36.2 ?C) Pulse64 Resp18 VhG599 % Wyuipj956 lb 3.2 oz (118 kg) Art Coma Scale Score15 BMI (Calculated)32.6 Constitutional: Well developed, Well nourished, In no acute distress. Non-toxic appearance. HENT: Normocepha (more content not included)... Normal [facility] TSH W/REFLEX FREE T4on 10-23 THYROID STIMULATING HORMONE 2.299 uIU/mL Normal 0.450-5.33 0 [facility] Comment on above: Result Comment: Ean luevano note the new reference range for this test. Performed By: #### L [id number] #### [facility] [address] ED Provider Noteson 10-19-19 22 ED Provider Notes Encounter Department : [facility] EM[facility] ED Provider Notes by Joey Burris DO at 10/18/2021 11:03 AM Author: Joey Burris DOService: -Author Type: Physician Filed: 10/18/2021 11:14 AMDate of Service: 10/18/2021 11:03 AMStatus: Signed Chief Engineer Research: Joey Burris DO (Physician) Emergency Department HANDP [place] ED 11/29 Chief Complaint: Chief Complaint Patient presents with -Anxiety -Nasal Congestion HPI: This patient is a 31 y.o.year old male who presents today with complaint of increased anxiety symptoms, abnormal sputum. Patient reports that he has been coughing up some dark green sputum and he showed me a picture of the dark green sputum that he coughed up this morning. Denies any fevers chills reports he is otherwise feeling healthy and well but feeling very anxious today and feels that the sputum could indicate something more serious. Review of Systems: Constitutional: Denies any fever chills Neck: Denies any neck pain or stiffness HENT: Denies any sore throat or nasal congestion, sputum today as above Respiratory: No persistent cough Cardiovascular: No new chest pain GI: No reported nausea vomiting or diarrhea ROS Medical and Surgical History: Past Medical History: DiagnosisDate -Anxiety -Depression -Panic attacks No Known Allergies History reviewed. No pertinent surgical history. Family History: No family history on file. Home medications: No current facility-administered medications for this encounter. Current Outpatient Medications MedicationSigDispenseRefill -hydrOXYzine HCL (ATARAX) 25 mg tabletTake 25 mg by mouth every 4 hours as needed for Itching. Social History: Social History Socioeconomic History -Marital status: Spouse name:Not on file -Number of children:Not on file -Years of education:Not on file -Highest education level:Not on file Occupational History -Not on file Tobacco Use -Smoking status:Former Smoker Packs/day:1.00 Types:Cigarettes Quit date:04/11/2021 Years since quittin.5 -Smokeless tobacco:Former User Vaping Use -Vaping Use:Former -Quit date:02/27/2019 Substance and Sexual Activity -Alcohol use:No -Drug use:Yes Types:Marijuana Comment: gummies -Sexual activity:Never Other TopicsConcern -Not on file Social History Narrative -Not on file Social Determinants of Health Financial Resource Strain: Not on file Food Insecurity: Not on file Transportation Needs: Not on file Physical Activity: Not on file Stress: Not on file Social Connections: Not on file Intimate Partner Violence: Not on file Housing Stability: Not on file Physical Exam: Visit Vitals BP131/90 Pulse73 Temp97.5 ?F (36.4 ?C) Resp16 Ht6' 3 (1.905 m) Wt260 lb (117.9 kg) ErM285% BMI32.50 kg/m? General: Patient is generally well-appearing, little anxious, mild distress secondary to the anxiety, No increased work of breathing, Color normal, Alert and oriented HEENT: Head: Normocephalic, No gross evidence of trauma. Eyes: Conjunctiva clear bilaterally, No Icterus, EOMI Bilaterally. Vision grossly normal at the bedside. Nose: No bleeding, nasal passages clear bilaterally Throat/ Intraoral: No erythema, no asymmetric swelling, uvula is midline and normal, no obstruction Neck: Supple, no mass, trachea is midline and normal, no adenopathy no meningismus Thorax/ Respiratory: Non- Tender, no crepitance. Lungs clear bilaterally, no stridor noted, no current increased work of breathing. Cardiovascular: Heart with regular rate, regular rhythm, no murmurs, no rubs. Musculoskeletal: Upper extremities with no evidence of trauma, good pulses noted symmetric. Lower extremities without noted acute trauma, no edema, good pulsed noted bilaterally. Joints of the upper and lower extremities without evidence of synovitis: no effusions, no significant pain with range of motion. No gross deformities noted. No calf tenderness no asymmetry well-perfused throughout Neurologic: Awake, alert and interactive. Motor strength symmetric bilateral upper and lower extremities Skin: No rashes. No erythema. No widespread bruising nor petechiae. Lymphatic/Hematologic: No noted lymphadenopathy. No tenderness. No active bleeding, no widespread bruising nor petechiae. Assessment/ Plan/ Medical Decision Making: Normal physical exam, did review the pictures of the sputum no concerning features to the sputum-he does also report that the sputum cleared up. Recommend him schedule close follow-up with primary care. Diagnosis: - - - ICD-10-CM 1.Anxiety F41.9 Electronically signed by Joey Burris DO 10/18/2021 11:14 AM Joey Burris, 10/18/21 1114 Normal [facility] ED Provider Noteson 10-02-19 ED Provider Notes Encounter Department : [facility] EM[facility]GENCY ED Provider Notes by Jesenia Sol MD at 10/01/2021 10:04 AM Author: DEMETRIUS Herediaervice: -Author Type: ED Physician Filed: 10/01/2021 10:34 AMDate of Service: 10/01/2021 10:04 AMStatus: Signed Chief Engineer Research: Jesenia Sol MD (ED Physician) CHIEF COMPLAINT Chief Complaint Patient presents with -Anxiety C/O SOB and anxiety off and on since last night. HPI Peter Jones is a 31 y.o. male who presents with complaints of anxiety panic attack. Is a 31-year-old male known history of anxiety panic attacks he does see the [facility] counselor name is Lakeshia comes emerged department complaints anxiety panic. Patient states he has been using Gummies at home. Patient states that his actual Gonda Gummies. Patient states he is also on hydroxyzine at night prescribed by his psychiatrist. The patient states that however he became more anxious last night he took one of the Gummies. Patient states he felt that it did not help him as it normally would. Patient states he was able to fall asleep woke up this morning feeling the same way and therefore came to emerge from for evaluation. Patient states this is not his worst panic attack. Patient states he has had panic attacks before where he starts breathing so much his hands curled up his lips start becoming numb and tingly. Patient states he gets lightheaded. Patient did not have any of those experiences on this occasion. REVIEW OF SYSTEMS CONSTITUTIONAL:Denies fever, chills EYES: Denies vision changes ENT: Denies sore throat or ear pain CARDIOVASCULAR: Denies chest pain RESPIRATORY: Denies cough or shortness of breath GI: Denies abdominal pain, nausea, vomiting, or diarrhea : Denies urinary frequency, urgency or dysuria MS:Denies back pain SKIN: Denies rash NEUROLOGIC: Denies headache, focal weakness or sensory changes ENDOCRINE: Denies polyuria or polydypsia LYMPHATIC: Denies swollen glands PSYCHIATRIC: Denies depression, suicidal ideation or homicial ideation PAST MEDICAL HISTORY Past Medical History: DiagnosisDate -Anxiety -Depression -Panic attacks FAMILY HISTORY No family history on file. SOCIAL HISTORY Social History Socioeconomic History -Marital status: Tobacco Use -Smoking status:Former Smoker Packs/day:1.00 Types:Cigarettes Quit date:04/11/2021 Years since quittin.4 -Smokeless tobacco:Former User Vaping Use -Vaping Use:Former -Quit date:02/27/2019 Substance and Sexual Activity -Alcohol use:No -Drug use:Yes Types:Marijuana Comment: gummies -Sexual activity:Never SURGICAL HISTORY History reviewed. No pertinent surgical history. CURRENT MEDICATIONS Outpatient Medications Marked as Taking for the 10/01/21 encounter (Hospital Encounter) MedicationSigDispenseRefill -hydrOXYzine HCL (ATARAX) 25 mg tabletTake 25 mg by mouth every 4 hours as needed for Itching. ALLERGIES No Known Allergies PHYSICAL EXAM VITAL SIGNS: ED Triage Vitals [10/01/21 1005] BP115/81 Temp98 ?F (36.7 ?C) Pulse78 Resp16 XeW013 % Weight Washington Coma Scale Score BMI (Calculated) Constitutional: Non-toxic appearance, appears mildly anxious HENT: Normocephalic, Atraumatic, Bilateral external ears normal, Oropharynx moist, No oral exudates, Nose normal Eyes: Conjunctiva normal, No discharge Neck: Normal range of motion, No tenderness, No nuchal rigidity Lymphatic: No lymphadenopathy noted Cardiovascular: Normal heart rate, Normal rhythm, No murmurs Thorax AND Lungs: Lung sounds normal Abdomen: Bowel sounds present, Soft, Nontender Skin: Warm, Dry, No rash Back: No CVA tenderness Rectal / Genital: Deferred Extremities: Intact distal pulses, No edema, No tenderness, No cyanosis Musculoskeletal: Good range of motion in all major joints. No major deformities noted Neurologic: Normal motor function, Normal sensory function, No focal deficits noted Psychiatric: Affect normal EKG Results for orders placed or performed during the hospital encounter of 10/01/21 EKG Standard 12 Lead ResultValueRef Range Heart Gouj16ldy RR [id number] [place] Jokcbkcv096kp QRSD Cthjipop465bs QT Ckuugjhr329yq QTc Yjakcgho855is QRS Lhxy01scs T Wave Lbwk91zme REPORT- NORMAL ECG - REPORTSinus rhythm Interpreting Phys Confirmed by: Jesenia Sol) 01-Oct-2021 10:33:10 Study Date/TimeDate and Time of Study: 2021-10-01 10:25:37 RADIOLOGY/PROCEDURES None Last Imaging results No results found for this visit on 10/01/21. LABS None No data to display COURSE AND MEDICAL DECISION MAKING Blood Pressure 115/81 Pulse 78 Temperature 98 ?F (36.7 ?C) Respiration 16 Oxygen Saturation 99% This is a 31-year-old male comes emerged department with complaints anxiety panic attack. Patient has a longstanding history of anxiety panic attacks he is seen at [facility]. Patient states he normally t (more content not included)... Normal [facility] EKG STANDARD 12 LEADon 10-01 EKG STANDARD 12 LEAD HEART RATE= 69 bpm RR Interval= 864 ms P-R Interval= 145 ms QRSD Interval= 111 ms QT Interval= 370 ms QTcB= 398 ms QRS Conneaut= 44 deg T Wave Conneaut= 28 deg REPORT= - NORMAL ECG - REPORT= Sinus rhythm INTERPRETING PHYS= Confirmed by: Jesenia Sol) 01-Oct-2021 10:33:10 Study Date/Time= Date and Time of Study: 2021-10-01 10:25:37 Normal [facility] ED Provider Noteson 09-26-19 22 ED Provider Notes Encounter Department : [facility] EMERGENCY ED Provider Notes by Hayden Alvarez MD at 09/25/2021 5:29 PM Author: DEMETRIUS Chewervice: Emergency MedicineAuthor Type: ED Physician Filed: 09/26/2021 6:08 AMDate of Service: 09/25/2021 5:29 PMStatus: Signed Chief Engineer Research: Hayden Alvarez MD (ED Physician) FINAL IMPRESSION ICD-10-CM 1.Anxiousness F41.9 2.Obsessive behaviors R46.81 3.Bilateral hand pain M79.641 M79.642 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 Reassured. -I do not think additional work-up is indicated. He needs to establish again with his psychiatrist in [place] as well as his therapist there. He may need restarted on medications to assist with his anxiousness and hypochondriasis DISCHARGE MEDICATION Discharge Medication List as of 09/25/2021 5:22 PM CHIEF COMPLAINT Chief Complaint Patient presents with -Skin Irritation C/O red splotches to hands for past 2 days. TRIAGE NOTE: Agustina Verdin RN 09/25/2021 4:29 PM Signed C/O red splotches to hands for past 2 days. HPI Peter Jones is a 31 y.o. male who presents to the ED with history of anxiety as well as panic attack and depression presents emergency department confirmed that he is got hepatitis. He is getting itching in both palms and has been reading online and thinks he has liver failure. He has had at least a dozen visits in the last several weeks here for various complaints. REVIEW OF SYSTEMS CARDIOVASCULAR: Denies syncope. He denies any palpitations currently. RESPIRATORY: Denies shortness of breath. Chronic feelings of intermittent shortness of breath but no symptoms of that now. GI: No nausea. No vomiting in the past he has been complaining of epigastric pain which is not present now. : No urinary sx NEUROLOGIC: No extremity weakness. No paresthesia. PAST MEDICAL HISTORY / FAMILY HISTORY Past Medical History: DiagnosisDate -Anxiety -Depression -Panic attacks SOCIAL HISTORY Social History Socioeconomic History -Marital status: Tobacco Use -Smoking status:Former Smoker Packs/day:1.00 Types:Cigarettes Quit date:04/11/2021 Years since quittin.4 -Smokeless tobacco:Former User Vaping Use -Vaping Use:Former -Quit date:02/27/2019 Substance and Sexual Activity -Alcohol use:No -Drug use:Yes Types:Marijuana Comment: gummies -Sexual activity:Never SURGICAL HISTORY History reviewed. No pertinent surgical history. CURRENT MEDICATIONS Outpatient Medications Marked as Taking for the 09/25/21 encounter (Hospital Encounter) MedicationSigDispenseRefill -hydrOXYzine HCL (ATARAX) 25 mg tabletTake 25 mg by mouth every 4 hours as needed for Itching. ALLERGIES No Known Allergies PHYSICAL EXAM VITAL SIGNS: ED Triage Vitals [09/25/21 1631] BP120/80 Temp97.9 ?F (36.6 ?C) Pulse75 Resp18 IvS362 % Vntdkn800 lb (120.2 kg) [place] Coma Scale Score15 BMI (Calculated)33.2 Constitutional: Well developed, Well nourished, no distress, Non-toxic appearance. HENT: Atraumatic. Sclera white. Neck: FROM with no focal tenderness. Cardiovascular: Normal heart rate Thorax AND Lungs: No respiratory distress Abdomen: Soft, No tenderness Back: Non-tender. No midline vertebral tenderness. No CVT. Skin: Warm, Dry, No erythema, No rash. He is rubbing his palms together so there are some slight erythema but there is no rash or other findings. Extremities: Intact distal pulses, Cap refill normal, No cyanosis, Neurologic: Alert AND oriented x 3, Normal motor function, Normal sensory function, No focal deficits noted. DIFFERENTIAL DIAGNOSIS / MEDICAL DECISION MAKING I reviewed his record and extensive work-up. There is no indication that he has organ failure. I have reassured him and we have gone through recent testing. He has been seen by an office in [place] for anxiety and depression and says that he did not like the way that some of the SSRI made him feel. He does use Vistaril as needed. It makes him feel a little bit sleepy. He has been using CBD now and feels that this may be helping his anxiety. ED COURSE Repeat Vitals: BP: 118/76 (09/25 1728) Temp: 97.9 ?F (36.6 ?C) (09/25 1631) Pulse: 76 (09/25 1728) Resp: 18 (09/25 1728) SpO2: 98 % (09/25 172) FiO2 (%): -- O2 Flow Rate (L/min): -- Cardiac (WDL): -- Cardiac Rhythm: -- Of encouraged him to follow-up with a single provider. We discussed the need for more intensive outpatient therapy. Electronically signed : Hayden Alvarez MD 09/26/21 0608 Normal [facility] B-TYPE NATRIURETICon 022 B-TYPE NATRIURETIC Normal [facility] Comment on above: Result Comment: Rele ase to patient->Immediate Performed By: #### L [id number] #### [facility] [address] [place] [address] Natriuretic peptide B (Bld) [Mass/Vol] 15 pg/mL Normal <100 [facility] Comment on above: Performed By: #### L [id number] #### [facility] [address] [place] [address] BASIC METABOLIC PANELon - 0 Anion gap [Moles/Vol] 11 mmol/L Normal 7-16 [facility] Comment on above: Performed By: #### L [id number] #### [facility] [address] [place] [address] BASIC METABOLIC PANEL Normal [facility] Comment on above: Result Comment: Rele ase to patient->Immediate Performed By: #### L [id number] #### [facility] [address] [place] [address] Calcium [Mass/Vol] 9.7 mg/dL Normal 8.6-10.2 [facility] Comment on above: Performed By: #### L [id number] #### [facility] [address] [place] [address] Chloride [Moles/Vol] 111 mmol/L Abnormal 98-107 [facility] Comment on above: Performed By: #### L [id number] #### [address] CO2 [Moles/Vol] 23 mmol/L Normal 21-31 [facility] Comment on above: Performed By: #### L [id number] #### [facility] [address] [place] [address] Creatinine [Mass/Vol] 1.1 mg/dL Normal 0.7-1.3 [facility] Comment on above: Performed By: #### L AB17 #### [address] GFR MDRD NON AF AMER >60 Normal >60 [facility] Comment on above: Result Comment: GFR is estimated using creatinine, age, gender, and race. Patient's values should be interpreted as a trend. For additional information: [email or web address] Performed By: #### L [id number] #### [facility] [address] [place] [address] [place] GFR/1.73 sq M.predicted among blacks MDRD (S/P/Bld) [Vol rate/Area] mL/min/{1.73_m2} Normal >60 [facility] Comment on above: Result Comment: GFR is estimated using creatinine, age, gender, and race. Patient's values should be interpreted as a trend. For additional information: [email or web address] Performed By: #### L [id number] #### [facility] [address] [address] [facility] Glucose [Mass/Vol] 101 mg/dL Normal 74-109 [facility] Comment on above: Performed By: #### L [id number] #### [facility] [address] [address] [facility] Potassium [Moles/Vol] 3.5 mmol/L Normal 3.5-5.3 [facility] Comment on above: Performed By: #### L [id number] #### [facility] [address] [address] [facility] Sodium [Moles/Vol] 145 mmol/L Normal 136-145 [facility] Comment on above: Performed By: #### L [id number] #### [facility] [address] [place], [place] [id number] [facility] Urea nitrogen [Mass/Vol] 12 mg/dL Normal 7-25 [facility] Comment on above: Performed By: #### L [id number] #### [facility] [address] [place] [address] [facility] CBC W/DIFFon 09-22-2021 BASOPHILS ABS AUTO 0.0 K/uL Normal 0.0-0.1 [facility] Comment on above: Performed By: #### L [id number] #### [facility] [address] [place] [address] Basophils/100 WBC (Bld) 0.3 % Normal [facility] Comment on above: Performed By: #### L [id number] #### [facility] [address] [place] [address] CBC W/DIFF Normal [facility] Comment on above: Result Comment: Rele ase to patient->Immediate Performed By: #### L [id number] #### [facility] [address] [place] [address] Eosinophils (Bld) [#/Vol] 0.2 10*3/uL Normal 0.0-0.4 [facility] Comment on above: Performed By: #### L [id number] #### [facility] [address] [place] [address] Eosinophils/100 WBC (Bld) 3.7 % Normal [facility] Comment on above: Performed By: #### L [id number] #### [facility] [address] [place] [address] Erythrocyte distribution width (RBC) [Ratio] 13.0 % Normal 11.7-15.2 [facility] Comment on above: Performed By: #### L [id number] #### [facility] [address] [place] [address] Hematocrit (Bld) [Volume fraction] 45.0 % Normal 39.0-51.5 [facility] Comment on above: Performed By: #### L [id number] #### [facility] [address] [place] [address] Hemoglobin (Bld) [Mass/Vol] 15.7 g/dL Normal 13.1-17.6 [facility] Comment on above: Performed By: #### L [id number] #### [facility] [address] [place] [address] Lymphocytes (Bld) [#/Vol] 1.7 10*3/uL Normal 0.8-3.6 [facility] Comment on above: Performed By: #### L [id number] #### [facility] [address] [place] [address] Lymphocytes/100 WBC (Bld) 31.8 % Normal [facility] Comment on above: Performed By: #### L [id number] #### [facility] [address] [place] [address] MCH (RBC) [Entitic mass] 31.0 pg Normal 28.4-33.4 [facility] Comment on above: Performed By: #### L [id number] #### [facility] [address] [place] [address] MCHC (RBC) [Mass/Vol] 34.8 g/dL Normal 31.1-37.0 [facility] Comment on above: Performed By: #### L [id number] #### [facility] [address] [place] [address] MCV (RBC) [Entitic vol] 88.9 fL Normal 85.0-99.0 [facility] Comment on above: Performed By: #### L [id number] #### [facility] [address] [place] [address] Monocytes (Bld) [#/Vol] 0.5 10*3/uL Normal 0.3-0.9 [facility] Comment on above: Performed By: #### L [id number] #### [facility] [address] [place] [address] Monocytes/100 WBC (Bld) 8.5 % Normal [facility] Comment on above: Performed By: #### L [id number] #### [facility] [address] [place] [address] NEUTROPHIL ABS AUTO 3.0 K/uL Normal 2.0-7.3 [facility] Comment on above: Performed By: #### L [id number] #### [facility] [address] [place] [address] Neutrophils/100 WBC (Bld) 55.6 % Normal [facility] Comment on above: Performed By: #### L [id number] #### [facility] [address] [place] [address] Platelets (Bld) [#/Vol] 225 10*3/uL Normal 154-393 [facility] Comment on above: Performed By: #### L [id number] #### [facility] [address] [place] [address] RBC (Bld) [#/Vol] 5.06 10*6/uL Normal 4.30-5.86 [facility] Comment on above: Performed By: #### L [id number] #### [facility] [address] [place] [address] WBC (Bld) [#/Vol] 5.4 10*3/uL Normal 4.0-10.5 [facility] Comment on above: Performed By: #### L [id number] #### [facility] [address] [place] [address] CT-ANGIO CHEST PE PROTOCOL 7 1275on 09-22-2021 CT-ANGIO CHEST PE PROTOCOL 76352 EXAMINATION: CT-ANGIO CHEST PE PROTOCOL 58448 DATE OF EXAM: 09/22/2021 10:16 AM DEMOGRAPHICS: 31 years old Male INDICATION: Contrast utilized and relevant clinical information: History: c/osob, d-dimer 245. Number of Series/Images: 9. COMPARISON: No existing relevant imaging study corresponding to the same anatomical region is available. TECHNIQUE: The study was performed with the rapid administration of intravenous contrast timed to best evaluate and opacify the pulmonary arteries and their branches. Axial source 3 mm images were obtained. 3-D reconstructions were performed. Imaging and processing were performed per the institutional PE evaluation protocol. Contrast Medication(s): IOHEXOL 350 MG/ML IV SOLN Amount Administered = 100 mL DOSE OPTIMIZATION: CT radiation dose optimization techniques (automated exposure control, and use of iterative reconstruction techniques, or adjustment of the mA and/or kV according to patient size) were used to limit patient radiation dose. FINDINGS: CT CHEST: Thyroid: The thyroid is unremarkable. Systemic arterial Vasculature: The thoracic aorta and arch vasculature have a normal contrasted appearance and are normal size and contour. There is no evidence for dissection. The coronary arteries are grossly normal caliber without focal abnormality. Pulmonary arterial vasculature: The pulmonary arterial vasculature demonstrates good contrast opacification. There is no evidence for a focal filling defect. There is no evidence for focal stenosis or aneurysmal dilatation. 3-D reconstructed images: MIP images confirm and further demonstrate the findings from the axial source images. No additional focal abnormalities are seen. Heart: The heart size is normal. There is no evidence for pericardial effusion. Mediastinum: Thymic tissue in the anterior mediastinum. No pathologically enlarged mediastinal lymph nodes are seen. No focal mass lesions are identified. There is no evidence for hiatal hernia. Pleura: Trace right pleural effusion. Trace left effusion. Tracheobronchial tree: The tracheobronchial tree is clear. No focal abnormalities are seen. Lungs : Noncalcified pulmonary nodule right lower lobe measuring 8 mm, seen on series 5 image 80. No consolidation. Upper abdomen: Spleen is enlarged measuring 15.6 cm in anterior posterior dimension. Bones: No significant bony abnormalities are noted. Chest wall: The chest wall and axilla are within normal limits. IMPRESSION: IMPRESSION: 1. No acute pulmonary embolism. No acute pulmonary process 2. Small bilateral pleural effusions. 3. Indeterminate 8 mm noncalcified pulmonary nodule in the right lower lobe. Follow-up chest CT in 3 months for this nodule recommended. Electronically Signed by: Jt Melendez MD, 09/22/2021 10:26 AM Not Validated Invalid Interpretation Code [facility] D-DIMER, QUANTITATIVEon 04-3 -2021 D-DIMER 245 ng/mL D-DU Abnormal 0-241 [facility] Comment on above: Performed By: #### L [id number] #### [facility] [address] D-DIMER, QUANTITATIVE Normal [facility] Comment on above: Result Comment: CUTO FF FOR EXCLUSION OF DVT/PE = 230 ng/ml(DDU) (see below) The quantitative D-dimer test, in conjunction with a clinical pretest probability (PTP) assessment model, can be used to exclude venous thromboembolism in outpatients suspected of DVT and PE. A positive D-dimer alone is not diagnostic of DVT. Studies have shown that D-dimer levels below a certain cutoff value can be used to exclude DVT and PE in the acute care setting when correlated with the PTP. This assay expresses D-dimer results in D-dimer units (D-DU). Due to the lack of an International Reference Standard some manufacturers express D-Dimer results in FEU (Fibrinogen Equivalent Units). The equivalence between these two measurement units is approximately 2 ng/ml FEU ~ 1 ng/ml D-DU. Semin Thromb Hemost 2012; 38(07):673-682. Release to patient->Immediate Performed By: #### L [id number] #### [facility] [address] ED Provider Noteson 09-23-19 ED Provider Notes Encounter Department : [facility] ED Provider Notes by Erasmo Aceves MD at 09/22/2021 9:08 AM Author: DEMETRIUS Parsonservice: Emergency MedicineAuthor Type: ED Physician Filed: 09/22/2021 11:05 AMDate of Service: 09/22/2021 9:08 AMStatus: Signed Chief Engineer Research: Erasmo Aceves MD (ED Physician) ED Attending Note TRIAGE CHIEF COMPLAINT: Chief Complaint Patient presents with -Anxiety HPI: Peter Jones is a 31 y.o. male who presents to the ER by himself. He states that he has history of anxiety and panic attacks and over the past 2 months he has had intermittent epigastric discomfort and shortness of breath. He denies any associated chest pain or palpitations. Denies F/C or recent illness. Denies N/V/D. Denies SALEH/AVC. Currently denies abdominal pain but states that when he has it it is 4/10 in severity and is cramping in nature. Denies radiation and is intermittent. Denies precipitating or alleviating factors. REVIEW OF SYSTEMS: At least 12 systems were reviewed and are negative unless otherwise noted. Constitutional: No F/C, no excessive fatigue Eye: No acute visual changes, no conjunctivitis HENT: No sore throat, No rhinorrhea Resp: +SOB, No cough Cardio: No palpitations, No chest pain GI: No melena or hematochezia. No nausea, vomiting, diarrhea or constipation. : No dysuria, No hematuria Musculoskeletal: No new joint swelling, No back pain Neuro: No isolated numbness or weakness, No headaches Skin: No skin yellowing/jaundice, No pruritus PAST MEDICAL HISTORY: Past Medical History: DiagnosisDate -Anxiety -Depression -Panic attacks CURRENT MEDICATIONS: Current Facility-Administered Medications MedicationDoseRouteFrequency ProviderLast RateLast Admin -famotidine (PEPCID) injection 20 mg 20 mgIV PushONCEAdam David Aceves MD Current Outpatient Medications MedicationSigDispenseRefill -hydrOXYzine HCL (ATARAX) 25 mg tabletTake 25 mg by mouth every 4 hours as needed for Itching. SURGICAL HISTORY: History reviewed. No pertinent surgical history. FAMILY HISTORY: No family history on file. SOCIAL HISTORY: Social History Socioeconomic History -Marital status: Tobacco Use -Smoking status:Former Smoker Packs/day:1.00 Types:Cigarettes Quit date:04/11/2021 Years since quittin.4 -Smokeless tobacco:Former User Vaping Use -Vaping Use:Former -Quit date:02/27/2019 Substance and Sexual Activity -Alcohol use:No -Drug use:No -Sexual activity:Never ALLERGIES: Patient has no known allergies. PHYSICAL EXAM: TRIAGE VITALS: Vitals BP: 130/75 Temp: 97.5 ?F (36.4 ?C) Pulse: 83 Resp: 22 SpO2: 100 % Height: 6' 3 (190.5 cm) Weight: 265 lb (120.2 kg) Constitutional: Non-toxic appearance, AANDO x4, GCS 15 HEENT: Normocephalic, Atraumatic, Bilateral external ears normal, Oropharynx moist, Nose normal. Oropharynx is without erythema or exudates, no lymphadenopathy noted, uvula is midline, no inspiratory stridor, no posterior oropharyngeal edema, bilateral TMs are clear, bilateral external auditory canals are normal. There is no tenderness to palpation over bilateral frontal or maxillary sinuses and there is no edema or erythema in these areas. Eyes: Conjunctiva normal, No discharge. EOMI, PERRL. Neck/back:No nuchal rigidity. No tenderness to palpation over C-spine, T-spine or L-spine. Cardiovascular: Normal heart rate, Normal rhythm, No murmurs, No rubs, No gallops. Pulmonary/Chest: No respiratory distress, good respiratory effort, good air movement throughout, no wheezing, rhonchi or rales. Abdomen: Soft, Normal bowel sounds, No masses, Negative Flood sign, negative McBurney point tenderness, negative rebound, negative guarding, negative Rovsing sign, negative psoas sign, negative obturator sign, negative CVA tenderness bilaterally. There is no tenderness to palpation in the epigastrium. Extremities: No edema. 2+ pulses in all 4 extremities. Neurologic: Normal motor function, Normal sensory function, No focal deficits. CN2-12 grossly intact. Rapid alternating movements and qcpdry-td-bnou are intact bilaterally, negative pronator drift. Patient is able to ambulate about the department without difficulty or instability. Skin: Warm, Dry, No erythema, No rash, No mottling. Psychiatric: Affect normal, Judgement normal, Mood normal. EKG: EKG Interpretation by me: Results for orders placed or performed during the hospital encounter of 09/22/21 EKG Standard 12 lead ResultValueRef Range Heart Sbml84ojj RR TNNHOYPO670ka [place] Jtvrxkpc526ss QRSD Bylwbbxq678ro QT Bgmcecps058oi QTc Gqdhzbep726vn QRS Dxsf67jtv T Wave Yzqv74joi REPORT- ABNORMAL ECG - REPORTSinus rhythm REPORTIncomplete right bundle branch block Interpreting Phys Confirmed by: Erasmo Aceves) 22-Sep-2021 09:26:48 Study Date/TimeDate and Time of Study: 2021-09-22 09:12:59 Labs / Radiology / Procedures / E (more content not included)... Normal [facility] EKG STANDARD 12 LEADon 09-22 EKG STANDARD 12 LEAD HEART RATE= 74 bpm RR Interval= 808 ms P-R Interval= 159 ms QRSD Interval= 112 ms QT Interval= 382 ms QTcB= 425 ms QRS Conneaut= 31 deg T Wave Conneaut= 18 deg REPORT= - ABNORMAL ECG - REPORT= Sinus rhythm REPORT= Incomplete right bundle branch block INTERPRETING PHYS= Confirmed by: Erasmo Aceves) 22-Sep-2021 09:26:48 Study Date/Time= Date and Time of Study: 2021-09-22 09:12:59 Normal [facility] LIPASEon 09-22-2021 LIPASE Normal [facility] Comment on above: Result Comment: Rele ase to patient->Immediate Performed By: #### L [id number] #### [facility] [address] [place] [address] Lipase [Catalytic activity/Vol] 31 U/L Normal 11-82 [facility] Comment on above: Performed By: #### L [id number] #### [facility] [address] [place] [address] LIVER PROFILE PANELon 2021 Albumin [Mass/Vol] 4.4 g/dL Normal 3.5-5.7 [facility] Comment on above: Performed By: #### L [id number] #### [facility] [address] [place] [address] ALP [Catalytic activity/Vol] 40 U/L Normal 34-104 [facility] Comment on above: Result Comment: Plea se note the new reference range for this test. Performed By: #### L [id number] #### [facility] [address] [place] [address] ALT [Catalytic activity/Vol] 17 U/L Normal 7-52 [facility] Comment on above: Result Comment: Due to new chemistry methodology at some [facility] labs, please re-baseline this test for any patients being transferred from a different location. Performed By: #### L [id number] #### [facility] [place] [facility] [address] [place] [address] AST [Catalytic activity/Vol] 15 U/L Normal 13-39 [facility] Comment on above: Performed By: #### L [id number] #### [facility] [address] [place] [address] Bilirubin [Mass/Vol] 0.9 mg/dL Normal 0.3-1.0 [facility] Comment on above: Performed By: #### L [id number] #### [facility] [address] [place] [address] Bilirubin.indirect [Mass/Vol] 0.10 mg/dL Normal <=0.20 [facility] Comment on above: Performed By: #### L [id number] #### [facility] [address] [place] [address] LIVER PROFILE PANEL Normal [facility] Comment on above: Result Comment: Rele ase to patient->Immediate Performed By: #### L [id number] #### [facility] [address] [place] [address] Protein [Mass/Vol] 7.0 g/dL Normal 6.0-8.3 [facility] Comment on above: Performed By: #### L [id number] #### [facility] [address] [place] [address] URINE CULTURE, CONDITIONALon 09-22-2021 BILIRUBIN, UA Negative Normal Negative [facility] Comment on above: Performed By: #### L [id number], [id number], [id number] #### [facility] [address] [place] [address] [place] BLOOD, UA Negative Normal Negative [facility] Comment on above: Performed By: #### L [id number], [id number], [id number] #### [facility] [address] [place] [address] [place] Clarity (U) Clear Normal Clear [facility] Comment on above: Performed By: #### L [id number], [id number], [id number] #### [facility] [address] [place] [address] [place] Color (U) Yellow Normal Yellow [facility] Comment on above: Performed By: #### L [id number], [id number], [id number] #### [facility] [address] [place] [address] GLUCOSE, UA Negative Normal Negative [facility] Comment on above: Performed By: #### L [id number], [id number], [id number] #### [facility] [address] [place] [address] [facility] KETONES, UA 5 mg/dL Abnormal Negative [facility] Comment on above: Performed By: #### L [id number], [id number], [id number] #### [facility] [address] [place] [address] [place] LEUKOCYTES, UA Negative Normal Negative [facility] Comment on above: Performed By: #### L [id number], [id number], [id number] #### [facility] [address] [place] [address] [place] Nitrite Ql (U) Negative Normal Negative [facility] Comment on above: Performed By: #### L [id number], [id number], [id number] #### [facility] [address] [place] [address] pH (U) 7.0 [pH] Normal 5.0-8.0 [facility] Comment on above: Performed By: #### L [id number], [id number], [id number] #### [facility] [address] [place] [address] [facility] Protein (U) [Mass/Vol] 10 mg/dL Abnormal Negative [facility] Comment on above: Performed By: #### L [id number], [id number], [id number] #### [facility] [address] [address] [place] SPECIFIC GRAVITY, UA CATEGORY 1.020 Normal 1.010 - 1.025 [facility] Comment on above: Performed By: #### L [id number], [id number], [id number] #### [facility] [address] [place] [address] [facility] URINE CULTURE, CONDITIONAL Normal [facility] Comment on above: Result Comment: Rele ase to patient->Immediate Performed By: #### L [id number], [id number], [id number] #### [facility] [address] UROBILINOGEN, UA Normal Normal Normal [facility] Comment on above: Performed By: #### L [id number], [id number], [id number] #### [facility] [address] [place] [address] URINE CULTURE, CONDITIONAL, NOT PERFORMEDon 09-22-2021 URINE CULTURE, CONDITIONAL, NOT PERFORMED URINE CULTURE NOT PERFORMED Conditions not met for Urine Culture Normal [facility] Comment on above: Order Comment: Relea se to patient->Immediate Performed By: #### L [id number], [id number], [id number] ####[facility] [id number] [place] [address] URINE DRUG SCREENon 09-23-19 AMPHETAMINE METAB Negative Normal Negative [facility] Comment on above: Performed By: #### L [id number] #### [facility] [address] [place] [address] BARBITURATES Negative Normal Negative [facility] Comment on above: Performed By: #### L [id number] #### [facility] [address] [place] [address] BENZODIAZEPINES Negative Normal Negative [facility] Comment on above: Performed By: #### L [id number] #### [facility] [address] [place] [address] CANNABINOID METAB Negative Normal Negative [facility] Comment on above: Performed By: #### L [id number] #### [facility] [address] [place] [address] COCAINE Negative Normal Negative [facility] Comment on above: Performed By: #### L [id number] #### [facility] [address] [place] [address] OPIATE METAB Negative Normal Negative [facility] Comment on above: Performed By: #### L [id number] #### [facility] [address] URINE DRUG SCREEN Normal [facility] Comment on above: Result Comment: Drug Screen Cut-off values: Amphetamines 300 ng/ml Benzodiazepines 200 ng/ml Barbiturates 200 ng/ml Cocaine metabolite 300 ng/ml Cannabinoids 50 ng/ml Opiates 300 ng/ml * Results are unconfirmed screening results and should only be used for medical purposes. Release to patient->Immediate Performed By: #### L [id number] #### [facility] [address] [place] [address] URINE MICROSCOPIC REFLEX CUL TUREon 09-22-2021 URINE BACTERIA Trace Abnormal Negative [facility] Comment on above: Performed By: #### L [id number], [id number], [id number] ####[address] URINE MICROSCOPIC REFLEX CULTURE Normal [facility] Comment on above: Result Comment: Cult ure of the urine specimen was not completed as criteria were not met. Release to patient->Immediate Performed By: #### L [id number], [id number], [id number] ####[address] URINE MUCOUS 2+ /lpf Abnormal Negative [facility] Comment on above: Performed By: #### L [id number], [id number], [id number] ####[facility] [id number] [place] [address] URINE RED BLOOD CELLS 0-3 Normal 0-3 [facility] Comment on above: Performed By: #### L [id number], [id number], [id number] ####[address] URINE WHITE BLOOD CELLS 0-3 Normal 0-3 [facility] Comment on above: Performed By: #### L [id number], [id number], [id number] ####[facility] [id number] [place] [address] [place] XR-CHEST PORTABLE Denzel XR-CHEST PORTABLE STAT Reason for exam:SOB Comparison: 09/10/2021 Portable CHEST The lungs are clear. The cardiomediastinal silhouette, joel, pleura, diaphragm and visualized bony structures are within normal limits for age. There is no change from the previous exam. IMPRESSION: IMPRESSION: Nonacute chest. Electronically Signed by: Jose Enrique Atkins MD, 09/22/2021 9:27 AM Normal [facility] ED Provider Noteson 09-21-19 ED Provider Notes Encounter Department : [facility] EMERGENCY ED Provider Notes by Jose Enrique Wynne Jr., MD at 09/20/2021 12:14 PM Author: DEMETRIUS Currie Jr.ervice: Emergency MedicineAuthor Type: ED Physician Filed: 09/20/2021 12:40 PMDate of Service: 09/20/2021 12:14 PMStatus: Signed Chief Engineer Research: Jose Enrique Wynne Jr., MD (ED Physician) FINAL IMPRESSION ICD-10-CM 1.Panic attack F41.0 2.Anxiety F41.9 DISPOSITION PLAN -Home DISCHARGE MEDICATION New Prescriptions No medications on file COURSE AND MEDICAL DECISION MAKING Repeat Vitals: BP: 132/89 (09/20 1204) Temp: 97.8 ?F (36.6 ?C) (09/20 1204) Pulse: 85 (09/20 1204) Resp: 18 (09/20 1204) SpO2: 100 % (09/20 1204) FiO2 (%): -- O2 Flow Rate (L/min): -- Cardiac (WDL): -- Cardiac Rhythm: -- Medications - No data to display Peter Jones is a 31 y.o. male well-known to me from multiple previous emergency department visits who presents complaining of anxiety symptoms. He has had 9 emergency department visits this month alone with similar complaints. He is undergone extensive work-ups in the past not revealing any underlying medical pathology. He still has concerns he could have cancer or HIV. He has tried various anxiety medications with his primary care and psychiatrist but notes no relief. He notes no other aggravating or relieving factors. He denies any suicidal homicidal ideations, visual or auditory hallucinations. His physical exam is unchanged with stable vital signs, clear breath sounds and regular cardiac exam. We had a counseling session regarding the management of his panic attack symptoms and the need for outpatient follow-up with primary care. CHIEF COMPLAINT Chief Complaint Patient presents with -Panic Attack HPI Peter Jones is a 31 y.o. male well-known to me from multiple previous emergency department visits who presents complaining of anxiety symptoms. He has had 9 emergency department visits this month alone with similar complaints. He is undergone extensive work-ups in the past not revealing any underlying medical pathology. He still has concerns he could have cancer or HIV. He has tried various anxiety medications with his primary care and psychiatrist but notes no relief. He notes no other aggravating or relieving factors. He denies any suicidal homicidal ideations, visual or auditory hallucinations. REVIEW OF SYSTEMS CONSTITUTIONAL:Denies fever, chills or weight loss EYES:Denies vision changes ENT:Denies sore throat or ear pain CARDIOVASCULAR:Denies chest pain, palpitations. No swelling RESPIRATORY:Denies cough or shortness of breath GI:No nausea. No vomiting or diarrhea. No abdominal pain :No urinary frequency or hematuria MS:Denies back pain or other joint pain SKIN:No rash NEUROLOGIC:Denies headache. No extremity weakness. No paresthesia. ENDOCRINE:Denies polydipsia or polyuria LYMPHATIC:Denies swollen glands PSYCHIATRIC:Denies depression. No SI/HI ALLERGIC:No pruritis or angioedema symptoms PAST MEDICAL HISTORY Past Medical History: DiagnosisDate -Anxiety -Depression -Panic attacks Above past medical conditions reviewed and verified by me. SURGICAL HISTORY History reviewed. No pertinent surgical history. SOCIAL HISTORY Lives at home. FAMILY HISTORY Non-contributory MEDICATIONS Outpatient Medications Marked as Taking for the 09/20/21 encounter (Hospital Encounter) MedicationSigDispenseRefill -hydrOXYzine HCL (ATARAX) 25 mg tabletTake 25 mg by mouth every 4 hours as needed for Itching. ALLERGIES No Known Allergies PHYSICAL EXAM VITAL SIGNS:ED Triage Vitals [09/20/21 1204] BP 132/89 Temp 97.8 ?F (36.6 ?C) Pulse 85 Resp 18 SpO2 100 % Weight 270 lb (122.5 kg) Art Coma Scale Score 15 BMI (Calculated) 33.8 CONSTITUTIONAL:Well developed, Well nourished, anxious, Non-toxic appearance. HENT:Normocephalic, Atraumatic, Bilateral external ears normal, Oropharynx moist, No oral exudates, Nose normal. EYES:PERRL, EOMI, Conjunctiva normal, No discharge. NECK:Full ROM, no stridor LYMPH:No visible adenopathy SKIN:Warm, Dry, No erythema, No rash. EXTREMITIES:Intact distal pulses and symmetric, No edema, No tenderness, No cyanosis, No clubbing MS:Good range of motion in all major joints. NEURO:Alert AND oriented x 3, No focal deficits noted. PSYCHIATRIC:Affect normal, Judgment normal, Mood normal. Electronically signed by: Jose Enrique Wynne Jr., MD 09/20/21 1240 Normal [facility] ED Provider Noteson 09-20-19 ED Provider Notes Encounter Department : [facility] EMERGENCY ED Provider Notes by Teresa Pérez DO at 09/19/2021 1:36 PM Author: Gloria Pinedarvice: Emergency MedicineAuthor Type: ED Physician Filed: 09/19/2021 1:39 PMDate of Service: 09/19/2021 1:36 PMStatus: Signed Chief Engineer Research: Teresa Pérez DO (ED Physician) COURSE AND MEDICAL DECISION MAKING Pertinent Labs AND Imaging studies reviewed. (See chart for details) ED Triage Vitals [09/19/21 1315] BP139/88 Temp98 ?F (36.7 ?C) Pulse75 Resp16 LaW476 % Udpdth881 lb (122.5 kg) [place] Coma Scale Score15 BMI (Calculated)33.8 Patient presenting with sputum production. Patient states that this is been ongoing for several weeks now in the morning when he wakes up he will cough up sputum. He was a previous smoker and is not sure if it may be related to that or not. He has clear lung sounds on examination and his physical exam is reassuring. I suspect that this is likely normal especially due to his previous smoking history. I do not feel that any further work-up is needed at this time. The patient has been seen here multiple times recently for a variety of complaints. He will follow-up with his primary care physician in the office or return should his symptoms worsen. Strict return precautions were given. He is stable at the time of discharge. FINAL IMPRESSION ICD-10-CM 1.Sputum production R05.8 CHIEF COMPLAINT Chief Complaint Patient presents with -Medical Problem HPI History obtained from patient Peter Jones is a 31 y.o. male who presents in bed 3 with sputum production. Patient states that for the past several weeks every time he wakes up he will cough up some sputum. He states that it seems to improve throughout the day but only happens in the morning when he first wakes up. He states it is a greenish clear color. He has not coughed up any blood. No chest pain or shortness of breath. No fevers or chills. He states he was a previous smoker. He states that he has seen his PCP for this issue and he told him that it could be due to his smoking history however he just wanted to be evaluated to make sure that nothing was wrong. Onset: weeks Duration: weeks Timing: every morning Character: coughing up sputum Intensity/Severity: mild Associated Symptoms: none Modifying factors: none Relieved by: nothing Tx before arrival: none REVIEW OF SYSTEMS Constitutional: No fever, chills Eye: No photophobia or visual changes. HENT: No earache or sore throat. + sputum production Resp: No SOB Cardio: No chest pain or palpatations. GI: No abdominal pain, nausea, vomiting, constipation or diarrhea. Musculoskeletal: No muscle aches, joint pain or back pain. Neuro: No headaches Skin: No rashs, No itching Lymphatic: No swollen glands. PAST MEDICAL HISTORY Past Medical History: DiagnosisDate -Anxiety -Depression -Panic attacks FAMILY HISTORY No family history on file. SOCIAL HISTORY Social History Socioeconomic History -Marital status: Tobacco Use -Smoking status:Former Smoker Packs/day:1.00 Types:Cigarettes Quit date:04/11/2021 Years since quittin.4 -Smokeless tobacco:Former User Vaping Use -Vaping Use:Former -Quit date:02/27/2019 Substance and Sexual Activity -Alcohol use:No -Drug use:No -Sexual activity:Never SURGICAL HISTORY History reviewed. No pertinent surgical history. CURRENT MEDICATIONS No outpatient medications have been marked as taking for the 09/19/21 encounter (Hospital Encounter). ALLERGIES No Known Allergies PHYSICAL EXAM VITAL SIGNS: ED Triage Vitals [09/19/21 1315] BP139/88 Temp98 ?F (36.7 ?C) Pulse75 Resp16 DwJ098 % Cezafv416 lb (122.5 kg) Art Coma Scale Score15 BMI (Calculated)33.8 Constitutional: Well developed, Well nourished, resting comfortably in bed. Non-toxic appearance. HENT: Normocephalic, Atraumatic, Bilateral external ears normal Eyes: PERRL, EOMI, Conjunctiva normal, No discharge. No scleral icterus. Neck: Normal range of motion, No tenderness, Supple, No stridor. Lymphatic: No lymphadenopathy noted. Cardiovascular: Normal heart rate, Normal rhythm, No murmurs, gallops or rubs. Thorax AND Lungs: Normal breath sounds, No respiratory distress, No wheezing, No chest wall tenderness. Abdomen: Soft, No tenderness, No masses, No pulsatile masses, not distended, bowel sounds normal. Skin: Warm, Dry, No erythema, No rash. No mottling, flushing or cyanosis. Extremities: No edema, No tenderness, No cyanosis, No clubbing. Intact and symmetric distal pulses Normal capillary refill and perfusion. Musculoskeletal: Good range of motion in all major joints as observed. No major deformities noted. Neurologic: Alert AND oriented x 3 Electronically signed by: Teresa Pérez DO, 09/19/2021 Teresa Pérez DO 09/19/21 1339 Normal [facility] ED Provider Noteson 09-19-19 ED Provider Notes Encounter Department : [facility] EMERGENCY ED Provider Notes by Joey Burris DO at 09/18/2021 2:47 AM Author: Joey Burris DOService: -Author Type: Physician Filed: 09/18/2021 2:51 AMDate of Service: 09/18/2021 2:47 AMStatus: Signed Chief Engineer Research: Joey Burris DO (Physician) Emergency Department HANDP [facility] ED 03/04 Chief Complaint: Chief Complaint Patient presents with -Panic Attack states had a panic attack 30 mins ago and states his heart was racing. states he has been stressed tonight. HPI: This patient is a 31 y.o.year old male who presents today with complaint of short of breath, palpitations. Patient states that he woke with rapid heartbeat, short of breath, breathing fast. And states that this lasted for some time any put on his finger pulse oximeter and his heart rate went from over 200 to 150 to 90. He is feeling significantly better. He does feel like he had a panic attack. States this happens occasionally. Not currently having any chest pain or shortness of breath. Has been feeling at his baseline health recently. Has been seen in the emergency department recently has had blood work recently. Review of Systems: Constitutional: Denies any fever chills Eyes: No vision changes reported Respiratory: Denies any coughing wheezing, shortness of breath as above Cardiovascular: Denies any chest pain, rapid heartbeat as above GI: No nausea vomiting or diarrhea tonight Musculoskeletal: No leg swelling ROS Medical and Surgical History: Past Medical History: DiagnosisDate -Anxiety -Depression -Panic attacks No Known Allergies History reviewed. No pertinent surgical history. Family History: No family history on file. Home medications: No current facility-administered medications for this encounter. Current Outpatient Medications MedicationSigDispenseRefill -hydrOXYzine HCL (ATARAX) 25 mg tabletTake 25 mg by mouth every 4 hours as needed for Itching. Social History: Social History Socioeconomic History -Marital status: Spouse name:Not on file -Number of children:Not on file -Years of education:Not on file -Highest education level:Not on file Occupational History -Not on file Tobacco Use -Smoking status:Former Smoker Packs/day:1.00 Types:Cigarettes Quit date:04/11/2021 Years since quittin.4 -Smokeless tobacco:Former User Vaping Use -Vaping Use:Former -Quit date:02/27/2019 Substance and Sexual Activity -Alcohol use:No -Drug use:No -Sexual activity:Never Other TopicsConcern -Not on file Social History Narrative -Not on file Social Determinants of Health Financial Resource Strain: Not on file Food Insecurity: Not on file Transportation Needs: Not on file Physical Activity: Not on file Stress: Not on file Social Connections: Not on file Intimate Partner Violence: Not on file Housing Stability: Not on file Physical Exam: Visit Vitals BP133/97 Pulse72 Temp97.8 ?F (36.6 ?C) Resp13 Ht6' 3 (1.905 m) Wt270 lb (122.5 kg) GtK666% BMI33.75 kg/m? General: Patient is in currently in no acute distress, No increased work of breathing, Color normal, Alert and oriented, pleasant interactive resting comfortably HEENT: Head: Normocephalic, No gross evidence of trauma. Eyes: Conjunctiva clear bilaterally, No Icterus, EOMI Bilaterally. Vision grossly normal at the bedside. Nose: No bleeding, nasal passages clear bilaterally Throat/ Intraoral: No erythema, no asymmetric swelling, uvula is midline and normal, no obstruction Neck: Supple, no mass, trachea is midline and normal, no gross JVD Thorax/ Respiratory: Non- Tender, no crepitance. Lungs clear bilaterally, no stridor noted, no current increased work of breathing. Cardiovascular: Heart with regular rate, regular rhythm, no murmurs, no rubs. Musculoskeletal: Upper extremities with no evidence of trauma, good pulses noted symmetric. Lower extremities without noted acute trauma, no edema, good pulsed noted bilaterally. Joints of the upper and lower extremities without evidence of synovitis: no effusions, no significant pain with range of motion. No gross deformities noted. No calf tenderness no asymmetry Neurologic: Awake, alert and interactive. Motor strength symmetric bilateral upper and lower extremities Skin: No rashes. No erythema. No widespread bruising nor petechiae. Lymphatic/Hematologic: No noted lymphadenopathy. No tenderness. No active bleeding, no widespread bruising nor petechiae. Assessment/ Plan/ Medical Decision Making: Monitor strip interpreted by me showing normal sinus rhythm rate of 70, no ectopy. Oxygen saturations of 98 to 100% Normal physical exam. Did discuss with the patient something seek may find beneficial for his anxiety that are none medicine related therapies. Certainly return if any worsening or concerns. I did briefly review his recent laboratory studies and prior vi (more content not included)... Normal [facility] ED Provider Noteson 09-18-19 ED Provider Notes Encounter Department : [facility] EMERGENCY ED Provider Notes by Mayte Jay DO at 09/17/2021 12:16 PM Author: Mayte Jay, DOService: -Author Type: ED Physician Filed: 09/17/2021 3:31 PMDate of Service: 09/17/2021 12:16 PMStatus: Signed Chief Engineer Research: Mayte Jay DO (ED Physician) CHIEF COMPLAINT Chief Complaint Patient presents with -Loss Of Appetite HPI Peter Jones is a 31 y.o. male who presents to ED complaining of anorexia. He states he had nausea and diarrhea over the past week. He reports watery, non-bloody diarrhea but states that this has since stopped. He reports persistent nausea and decreased appetite. He was seen in ED for these symptoms four days ago. He denies fevers, chills, vomiting, abdominal pain, dysuria, or hematuria. He denies congestion, sore throat, cough. He denies headaches, visual changes, dizziness, chest pain, shortness of breath, lower extremity swelling, leg pain, focal weakness, or paresthesias. REVIEW OF SYSTEMS Review of Systems - General ROS: negative for - chills or fever ENT ROS: negative for - nasal congestion or sore throat Hematological and Lymphatic ROS: negative for - pallor or weight loss Respiratory ROS: no cough, shortness of breath, or wheezing Cardiovascular ROS: no chest pain or dyspnea on exertion Gastrointestinal ROS: positive for - appetite loss and diarrhea Genito-Urinary ROS: no dysuria, trouble voiding, or hematuria Musculoskeletal ROS: negative for - joint pain or joint swelling Neurological ROS: no TIA or stroke symptoms Dermatological ROS: negative for rash PAST MEDICAL HISTORY Past Medical History: DiagnosisDate -Anxiety -Depression -Panic attacks FAMILY HISTORY No family history on file. SOCIAL HISTORY Social History Socioeconomic History -Marital status: Tobacco Use -Smoking status:Former Smoker Packs/day:1.00 Types:Cigarettes Quit date:04/11/2021 Years since quittin.4 -Smokeless tobacco:Former User Vaping Use -Vaping Use:Former -Quit date:02/27/2019 Substance and Sexual Activity -Alcohol use:No -Drug use:No -Sexual activity:Never SURGICAL HISTORY History reviewed. No pertinent surgical history. CURRENT MEDICATIONS Outpatient Medications Marked as Taking for the 09/17/21 encounter (Hospital Encounter) MedicationSigDispenseRefill -hydrOXYzine HCL (ATARAX) 25 mg tabletTake 25 mg by mouth every 4 hours as needed for Itching. -[DISCONTINUED] loperamide (IMODIUM) 2 mg capsuleStart with 4mg po x 1, then 2mg po after each loose stool; Max: 16mg/day30 capsule0 ALLERGIES No Known Allergies PHYSICAL EXAM VITAL SIGNS: BP 121/91 Pulse 73 Temp 97.9 ?F (36.6 ?C) Resp 18 Ht 6' 3 (1.905 m) Wt 270 lb (122.5 kg) SpO2 99% BMI 33.75 kg/m? Constitutional: Well developed, Well nourished, No acute distress, Non-toxic appearance. HENT: Normocephalic, Atraumatic, Bilateral external ears normal, Oropharynx moist, No oral exudates, Nose normal. Eyes: PERRLA, EOMI. Neck: Normal range of motion, Supple, No stridor. Cardiovascular: Normal heart rate, Normal rhythm, No murmurs, No rubs, No gallops. Thorax AND Lungs: Normal breath sounds, No respiratory distress, No wheezing, No chest tenderness. Abdomen: Bowel sounds normal, Soft, No tenderness, No masses, No pulsatile masses. Skin: Warm, Dry, No erythema, No rash. Extremities: Intact distal pulses, No edema, No tenderness, No cyanosis, No clubbing. Musculoskeletal: Good range of motion in all major joints. No tenderness to palpation or major deformities noted. Neurologic: Alert AND oriented x 3, No focal deficits noted. Psychiatric: Affect normal, Judgment normal, Mood normal. COURSE AND MEDICAL DECISION MAKING Pertinent Labs AND Imaging studies reviewed. (See chart for details) Patient is 31 yom presenting to ED with appetite loss, nausea, recent diarrhea. Upon presentation to ED, vital signs stable, afebrile. On exam, RRR, lungs CTAB, abdomen soft, non-tender. I did offer labs and IVF. He declined this and states that he just wants to check his blood sugar because he is worried about this. Blood sugar is normal. He feels comfortable going home. Abdomen is non-surgical. He was discharged home in stable condition. Strict return precautions given. Patient to follow-up with PCP in 2-3 days. FINAL IMPRESSION 1. Anorexia 2. Nausea 3. Diarrhea Electronically signed by: Mayte Jay DO, 09/17/2021 3:25 PM Mayte Jay DO 09/17/21 1531 Normal [facility] GLUCOSE POC RESULTSon 2021 Glucose [Mass/Vol] 91 mg/dL Normal 74-106 [facility] Comment on above: Performed By: #### P OCT10 ####[facility] [id number] [place] [address] GLUCOSE POC RESULTS Normal [facility] Comment on above: Result Comment: Poin t of care test performed at bedside. Release to patient->Immediate Performed By: #### P OCT10 ####[facility] [id number] [place] [address] ED Provider Noteson 09-14-19 ED Provider Notes Encounter Department : [facility] EMERGENCY ED Provider Notes by Jesenia Sol MD at 09/13/2021 10:47 AM Author: DEMETRIUS Herediaervice: -Author Type: ED Physician Filed: 09/13/2021 11:51 AMDate of Service: 09/13/2021 10:47 AMStatus: Addendum Chief Engineer Research: Jesenia Sol MD (ED Physician) Related Notes: Original Note by Jesenia Sol MD (ED Physician) filed at 09/13/2021 11:01 AM Tenderness CHIEF COMPLAINT Chief Complaint Patient presents with -Diarrhea HPI Peter Jones is a 31 y.o. male who presents with complaints of diarrhea. Is a 31-year-old male known history of anxiety comes emerged department with complaints of diarrhea. Patient states he had diarrhea for 5 straight days. He has had multiple episodes. Patient states he has been seen in the emergency department on 5 separate occasions over that period of time as well. Complete work-up have been done including CT abdomen pelvis labs all of which been found to be normal. Patient is received multiple liters of normal saline IV fluids. Patient states he is continued with diarrhea. He states he has not been around any hospitals or nursing homes other than his own visits. He has had no contacts with C. difficile diarrhea. Is not traveled out of the country. Patient states that he is able to eat and drink is had no nausea vomiting or fevers. He has no pain. Patient states he is pending a visit with his primary care physician on Friday who is going to refer him to a GI physician. He denies history of bowel syndrome. Patient states he has not taken anything for diarrhea at home. He has taken Bentyl which has helped somewhat. REVIEW OF SYSTEMS CONSTITUTIONAL:Denies fever, chills EYES: Denies vision changes ENT: Denies sore throat or ear pain CARDIOVASCULAR: Denies chest pain, palpitations RESPIRATORY: Denies cough or shortness of breath GI: Denies abdominal pain, nausea, vomiting : Denies urinary frequency, urgency or dysuria MS:Denies back pain SKIN: Denies rash NEUROLOGIC: Denies headache, focal weakness or sensory changes ENDOCRINE: Denies polyuria or polydypsia LYMPHATIC: Denies swollen glands PSYCHIATRIC: Denies depression, suicidal ideation or homicial ideation PAST MEDICAL HISTORY Past Medical History: DiagnosisDate -Anxiety -Depression -Panic attacks FAMILY HISTORY No family history on file. SOCIAL HISTORY Social History Socioeconomic History -Marital status: Tobacco Use -Smoking status:Former Smoker Packs/day:1.00 Types:Cigarettes Quit date:04/11/2021 Years since quittin.4 -Smokeless tobacco:Former User Vaping Use -Vaping Use:Former -Quit date:02/27/2019 Substance and Sexual Activity -Alcohol use:No -Drug use:No -Sexual activity:Never SURGICAL HISTORY History reviewed. No pertinent surgical history. CURRENT MEDICATIONS Outpatient Medications Marked as Taking for the 09/13/21 encounter (Hospital Encounter) MedicationSigDispenseRefill -dicyclomine (BENTYL) 20 mg tabletTake 1 tablet (20 mg total) by mouth every 6 hours as needed (abdominal pain) for up to 5 days.20 tablet0 -hydrOXYzine HCL (ATARAX) 25 mg tabletTake 25 mg by mouth every 4 hours as needed for Itching. -ondansetron (ZOFRAN-ODT) 4 mg disintegrating tabletTake 2 tablets (8 mg total) by mouth every 8 hours as needed for Nausea for up to 5 days.15 tablet0 ALLERGIES No Known Allergies PHYSICAL EXAM VITAL SIGNS: ED Triage Vitals [09/13/21 1038] BP(Abnormal) 147/101 Temp97.6 ?F (36.4 ?C) Pulse88 Resp15 JyK553 % Puktfz029 lb (122.5 kg) [place] Coma Scale Score15 BMI (Calculated)33.8 Constitutional: Non-toxic appearance HENT: Normocephalic, Atraumatic, Bilateral external ears normal, Oropharynx moist, No oral exudates, Nose normal Eyes: Conjunctiva normal, No discharge Neck: Normal range of motion, No tenderness, No nuchal rigidity Lymphatic: No lymphadenopathy noted Cardiovascular: Normal heart rate, Normal rhythm, No murmurs Thorax AND Lungs: Lung sounds normal Abdomen: Bowel sounds present, Soft, Nontender Skin: Warm, Dry, No rash Back: No CVA tenderness Rectal / Genital: Deferred Extremities: Intact distal pulses, No edema, No tenderness, No cyanosis Musculoskeletal: Good range of motion in all major joints. No major deformities noted Neurologic: Normal motor function, Normal sensory function, No focal deficits noted Psychiatric: Affect normal RADIOLOGY/PROCEDURES None Last Imaging results No results found for this visit on 09/13/21. LABS None No data to display COURSE AND MEDICAL DECISION MAKING Blood Pressure (Abnormal) 147/101 Pulse 88 Temperature 97.6 ?F (36.4 ?C) Respiration 15 Height 6' 3 (1.905 m) Weight 270 lb (122.5 kg) Oxygen Saturation 99% Body Mass Index 33.75 kg/m? This is a 31-year-old male comes emerged department with complaints of 5 days of diarrhea. Patient states he has been seen in various jan (more content not included)... Normal [facility] BASIC METABOLIC PANELon - Anion gap [Moles/Vol] 7 mmol/L Normal 7-16 [facility] Comment on above: Performed By: #### L AB17 #### [address] BASIC METABOLIC PANEL Normal [facility] Comment on above: Result Comment: Rele ase to patient->Immediate Performed By: #### L AB17 #### [address] Calcium [Mass/Vol] 9.8 mg/dL Normal 8.6-10.2 [facility] Comment on above: Performed By: #### L AB17 #### [address] Chloride [Moles/Vol] 112 mmol/L Abnormal 98-107 [facility] [facility] Comment on above: Performed By: #### L [id number] #### [place] [address] [place] CO2 [Moles/Vol] 25 mmol/L Normal 21-31 [facility] Comment on above: Performed By: #### L [id number] #### [facility] [address] [place] [address] Creatinine [Mass/Vol] 1.2 mg/dL Normal 0.7-1.3 [facility] Comment on above: Performed By: #### L [id number] #### [facility] [address] [place] [address] GFR MDRD NON AF AMER >60 Normal >60 [facility] Comment on above: Result Comment: GFR is estimated using creatinine, age, gender, and race. Patient's values should be interpreted as a trend. For additional information: [email or web address] Performed By: #### L [id number] #### [address] GFR/1.73 sq M.predicted among blacks MDRD (S/P/Bld) [Vol rate/Area] mL/min/{1.73_m2} Normal >60 [facility] Comment on above: Result Comment: GFR is estimated using creatinine, age, gender, and race. Patient's values should be interpreted as a trend. For additional information: [email or web address] Performed By: #### L [id number] #### [facility] [address] [place] [address] Glucose [Mass/Vol] 96 mg/dL Normal 74-109 [facility] Comment on above: Performed By: #### L [id number] #### [facility] [address] [place] [address] Potassium [Moles/Vol] 3.8 mmol/L Normal 3.5-5.3 [facility] Comment on above: Performed By: #### L [id number] #### [facility] [address] [place] [address] Sodium [Moles/Vol] 144 mmol/L Normal 136-145 [facility] Comment on above: Performed By: #### L [id number] #### [facility] [address] [place] [address] [facility] Urea nitrogen [Mass/Vol] 10 mg/dL Normal 7-25 [facility] Comment on above: Performed By: #### L [id number] #### [facility] [address] [address] [facility] BLOOD GAS, VENOUSon 09-12-19 22 BASE EXCESS -2.8 meq/L Abnormal 0.0-2.0 [facility] Comment on above: Performed By: #### L [id number] #### [facility] [address] [place] [address] BLOOD GAS, VENOUS Normal [facility] Comment on above: Result Comment: The term oxygen saturation has changed to FO2HB per CAP standard. The measurement itself has not changed. Release to patient->Immediate Performed By: #### L [id number] #### [facility] [address] [place] [address] CARBOXYHEMOGLOBIN 0.1 % Abnormal 0.5-2.0 [facility] Comment on above: Result Comment: Carboxyhemoglobin Reference Range: Non Smokers: <2% Smokers: <8% Toxic: >20% Performed By: #### L [id number] #### [facility] [address] [place] [address] FO2HB 32.0 % Abnormal 96.0-97.5 [facility] Comment on above: Performed By: #### L [id number] #### [facility] [address] [place] [address] HCO3 (Bld) [Moles/Vol] 20.6 mmol/L Abnormal 22.0-26.0 [facility] Comment on above: Performed By: #### L [id number] #### [facility] [address] [place] [address] Hemoglobin (Bld) [Mass/Vol] 15.3 g/dL Normal 13.1-17.6 [facility] Comment on above: Performed By: #### L [id number] #### [facility] [address] [place] [address] METHEMOGLOBIN 0.4 % Normal 0.0-2.0 [facility] Comment on above: Performed By: #### L [id number] #### [facility] [address] [place] [address] PCO2, VENOUS 32 mmHg Abnormal 35-45 [facility] Comment on above: Performed By: #### L [id number] #### [facility] [address] [place] [address] pH (Bld) 7.43 [pH] Normal 7.35-7.45 [facility] Comment on above: Performed By: #### L [id number] #### [facility] [address] [place] [address] PO2, VENOUS 16 mmHg Abnormal 36-46 [facility] Comment on above: Performed By: #### L [id number] #### [facility] [address] [place] [address] CBC W/DIFFon 09-11-2021 BASOPHILS ABS AUTO 0.0 K/uL Normal 0.0-0.1 [facility] Comment on above: Performed By: #### L [id number] #### [facility] [address] [place] [address] Basophils/100 WBC (Bld) 0.2 % Normal [facility] Comment on above: Performed By: #### L [id number] #### [facility] [address] [place] [address] CBC W/DIFF Normal [facility] Comment on above: Result Comment: Rele ase to patient->Immediate Performed By: #### L [id number] #### [facility] [address] [place] [address] Eosinophils (Bld) [#/Vol] 0.1 10*3/uL Normal 0.0-0.4 [facility] Comment on above: Performed By: #### L [id number] #### [facility] [address] [place] [address] Eosinophils/100 WBC (Bld) 2.4 % Normal [facility] Comment on above: Performed By: #### L [id number] #### [facility] [address] [place] [address] Erythrocyte distribution width (RBC) [Ratio] 12.8 % Normal 11.7-15.2 [facility] Comment on above: Performed By: #### L [id number] #### [facility] [address] [place] [address] Hematocrit (Bld) [Volume fraction] 43.3 % Normal 39.0-51.5 [facility] Comment on above: Performed By: #### L [id number] #### [facility] [address] [place] [address] Hemoglobin (Bld) [Mass/Vol] 15.1 g/dL Normal 13.1-17.6 [facility] Comment on above: Performed By: #### L [id number] #### [facility] [address] [place] [address] Lymphocytes (Bld) [#/Vol] 1.2 10*3/uL Normal 0.8-3.6 [facility] Comment on above: Performed By: #### L [id number] #### [facility] [address] [place] [address] Lymphocytes/100 WBC (Bld) 21.1 % Normal [facility] Comment on above: Performed By: #### L [id number] #### [facility] [address] [place] [address] MCH (RBC) [Entitic mass] 30.7 pg Normal 28.4-33.4 [facility] Comment on above: Performed By: #### L [id number] #### [facility] [address] [place] [address] MCHC (RBC) [Mass/Vol] 34.8 g/dL Normal 31.1-37.0 [facility] Comment on above: Performed By: #### L [id number] #### [facility] [address] [place] [address] MCV (RBC) [Entitic vol] 88.2 fL Normal 85.0-99.0 [facility] Comment on above: Performed By: #### L [id number] #### [facility] [address] [place] [address] Monocytes (Bld) [#/Vol] 0.7 10*3/uL Normal 0.3-0.9 [facility] Comment on above: Performed By: #### L [id number] #### [facility] [address] [place] [address] Monocytes/100 WBC (Bld) 11.6 % Normal [facility] Comment on above: Performed By: #### L [id number] #### [facility] [address] [place] [address] NEUTROPHIL ABS AUTO 3.8 K/uL Normal 2.0-7.3 [facility] Comment on above: Performed By: #### L [id number] #### [facility] [address] [place] [address] Neutrophils/100 WBC (Bld) 64.8 % Normal [facility] Comment on above: Performed By: #### L [id number] #### [facility] [address] [place] [address] Platelets (Bld) [#/Vol] 213 10*3/uL Normal 154-393 [facility] Comment on above: Performed By: #### L [id number] #### [facility] [address] [place] [address] RBC (Bld) [#/Vol] 4.91 10*6/uL Normal 4.30-5.86 [facility] Comment on above: Performed By: #### L [id number] #### [facility] [address] [place] [address] WBC (Bld) [#/Vol] 5.9 10*3/uL Normal 4.0-10.5 [facility] Comment on above: Performed By: #### L [id number] #### [facility] [address] [place] [address] ED Provider Noteson 09-12-19 ED Provider Notes Encounter Department : [facility] ED Provider Notes by Jesenia Lozano DO at 09/11/2021 2:05 PM Author: Gloria Caceresrvice: -Author Type: ED Physician Filed: 09/11/2021 7:02 PMDate of Service: 09/11/2021 2:05 PMStatus: Signed Chief Engineer Research: Jesenia Lozano DO (ED Physician) CHIEF COMPLAINT Chief Complaint Patient presents with -Diarrhea HPI Peter Jones is a 31 y.o. male who presents with persistent and worsening nausea associated with copious diarrhea 20-30 times since being seen here yesterday. Just filled his Bentyl which was prescribed yesterday. He took it about half an hour prior to arrival. He feels very short of breath which she believes could be is anxiety. No other associated symptoms or exacerbating or alleviating factors REVIEW OF SYSTEMS Review of Systems Constitutional: Negative. HENT: Negative. Eyes: Negative. Respiratory: Positive for shortness of breath. Cardiovascular: Negative. Gastrointestinal: Positive for diarrhea, nausea and vomiting. Genitourinary: Negative. Musculoskeletal: Negative. Skin: Negative. Psychiatric/Behavioral: The patient is nervous/anxious. Review of systems otherwise negative. PAST MEDICAL HISTORY Past Medical History: DiagnosisDate -Anxiety -Depression -Panic attacks FAMILY HISTORY No family history on file. and as listed in past medical history Otherwise no pertinent family history SOCIAL HISTORY Social History Socioeconomic History -Marital status: Tobacco Use -Smoking status:Former Smoker Packs/day:1.00 Types:Cigarettes Quit date:04/11/2021 Years since quittin.4 -Smokeless tobacco:Former User Vaping Use -Vaping Use:Former -Quit date:02/27/2019 Substance and Sexual Activity -Alcohol use:No -Drug use:No -Sexual activity:Never SURGICAL HISTORY History reviewed. No pertinent surgical history. CURRENT MEDICATIONS No outpatient medications have been marked as taking for the 09/11/21 encounter (Hospital Encounter). ALLERGIES No Known Allergies PHYSICAL EXAM VITAL SIGNS: BP 148/88 Pulse 78 Temp 98.1 ?F (36.7 ?C) Resp 20 Ht 6' 3 (1.905 m) Wt 270 lb (122.5 kg) SpO2 100% BMI 33.75 kg/m? Constitutional: Well developed, Well nourished, No acute distress, Non-toxic appearance. HENT: Normocephalic, Atraumatic, Bilateral external ears normal, Oropharynx dry neck: Normal range of motion, No tenderness, Supple, No stridor. Lymphatic: No lymphadenopathy noted. Cardiovascular: Normal heart rate, Normal rhythm, No murmurs, No rubs, No gallops. Thorax AND Lungs: Normal breath sounds, No respiratory distress, No wheezing, No chest tenderness. Increased respiratory rate and effort Abdomen: Nontender nondistended Skin: Warm, Dry, No erythema, No rash. Back: No tenderness, No CVA tenderness. Extremities: Intact distal pulses, No edema, No tenderness, No cyanosis, No clubbing. Neurologic: Alert AND oriented x 3, Normal motor function, Normal sensory function, No focal deficits noted. Psych: Anxious EKG No results found for this visit on 09/11/21. RADIOLOGY/PROCEDURES No results found for this visit on 09/11/21. COURSE AND MEDICAL DECISION MAKING Pertinent Labs AND Imaging studies reviewed. (See chart for details) Recent Results (from the past 24 hour(s)) CBC w/ Diff-Complete Blood Count Collection Time: 09/11/21 2:47 PM ResultValueRef Range WBC5.94.0 - 10.5 K/uL RBC4.914.30 - 5.86 M/uL HGB15.113.1 - 17.6 g/dL HCT43.339.0 - 51.5 % MCV88.285.0 - 99.0 fl MCH30.728.4 - 33.4 pg MCHC34.831.1 - 37.0 g/dL RDW12.811.7 - 15.2 % Platelet [id number] - 393 K/uL Neutrophils %64.8% Lymphocytes %21.1% Monocytes %11.6% Eosinophils %2.4% Basophils %0.2% Neutrophils Absolute3.82.0 - 7.3 K/uL Lymphocytes Absolute1.20.8 - 3.6 K/uL Monocytes Absolute0.70.3 - 0.9 K/uL Eosinophils Absolute0.10.0 - 0.4 K/uL Basophils Absolute0.00.0 - 0.1 K/uL Basic Metabolic Panel Collection Time: 09/11/21 2:47 PM ResultValueRef Range [id number] - 145 mmol/L Potassium3.83.5 - 5.3 mmol/L Gbhhzlfh604 (A)98 - 107 mmol/L [id number] - 31 mmol/L Anion Gap77 - 16 mmol/L Xawetqy2763 - 109 mg/dL RLN443 - 25 mg/dL Creatinine1.20.7 - 1.3 mg/dL Calcium9.88.6 - 10.2 mg/dL eGFR AfricanAmerican>60>60 ml/min/1.73m2 GFR MDRD Non Af Amer>60>60 ml/min/1.73m2 U/A reflex to Micro reflex to Urine Culture, Conditional Collection Time: 09/11/21 2:48 PM Specimen: Urine, Clean Catch ResultValueRef Range Urine ClarityClearClear Urine ColorLight yellow (A)Yellow Glucose UrinalysisNegativeNegative mg/dL Ketones UrinalysisNegativeNegative mg/dL Blood UrinalysisNegativeNegative mg/dL Protein UrinalysisNegativeNegative mg/dL Urine NitriteNegativeNegative Bilirubin UrinalysisNegativeNegative mg/dL Specific [place] Urinalysis<1.005 (A)1.010 - 1.025 pH Urinalysis6.55.0 - 8.0 pH Urobilinogen UrinalysisNormalNormal mg/dL Leukocytes Uri (more content not included)... Normal [facility] URINE CULTURE, CONDITIONALon 09-11-2021 BILIRUBIN, UA Negative Normal Negative [facility] Comment on above: Performed By: #### L [id number], [id number] #### [facility] [address] [place] [address] BLOOD, UA Negative Normal Negative [facility] Comment on above: Performed By: #### L [id number], [id number] #### [facility] [address] [place] [address] Clarity (U) Clear Normal Clear [facility] Comment on above: Performed By: #### L [id number], [id number] #### [facility] [address] [place] [address] Color (U) Light yellow Abnormal Yellow [facility] Comment on above: Performed By: #### L [id number], [id number] #### [facility] [address] [place] [address] GLUCOSE, UA Negative Normal Negative [facility] Comment on above: Performed By: #### L [id number], [id number] #### [facility] [address] [place] [address] KETONES, UA Negative Normal Negative [facility] Comment on above: Performed By: #### L [id number], [id number] #### [facility] [address] [place] [address] LEUKOCYTES, UA Negative Normal Negative [facility] Comment on above: Performed By: #### L [id number], [id number] #### [facility] [address] [place] [address] Nitrite Ql (U) Negative Normal Negative [facility] Comment on above: Performed By: #### L [id number], [id number] #### [facility] [address] [place] [address] pH (U) 6.5 [pH] Normal 5.0-8.0 [facility] Comment on above: Performed By: #### L [id number], [id number] #### [facility] [address] [place] [address] PROTEIN, UA Negative Normal Negative [facility] Comment on above: Performed By: #### L [id number], [id number] #### [facility] [address] [place] [address] SPECIFIC GRAVITY, UA CATEGORY <1.005 Abnormal 1.010 - 1.025 [facility] Comment on above: Performed By: #### L [id number], [id number] #### [facility] [address] [place] [address] URINE CULTURE, CONDITIONAL Normal [facility] Comment on above: Result Comment: Cult ure of the urine specimen was not completed as criteria were not met. Release to patient->Immediate Performed By: #### L [id number], [id number] #### [facility] [address] [place] [address] UROBILINOGEN, UA Normal Normal Normal [facility] Comment on above: Performed By: #### L [id number], [id number] #### [facility] [address] [place] [address] URINE CULTURE, CONDITIONAL, NOT PERFORMEDon 09-11-2021 URINE CULTURE, CONDITIONAL, NOT PERFORMED URINE CULTURE NOT PERFORMED Conditions not met for Urine Culture Normal [facility] Comment on above: Order Comment: Relea se to patient->Immediate Performed By: #### L [id number], [id number] #### [facility] [address] [place] [address] BASIC METABOLIC PANELon 08-24 Anion gap [Moles/Vol] 11 mmol/L Normal 7-16 [facility] Comment on above: Performed By: #### L [id number] #### [facility] [address] [place] [address] BASIC METABOLIC PANEL Normal [facility] Comment on above: Result Comment: Rele ase to patient->Immediate Performed By: #### L [id number] #### [address] [address] Calcium [Mass/Vol] 9.8 mg/dL Normal 8.6-10.2 [facility] Comment on above: Performed By: #### L [id number] #### [facility] [address] [place] [address] Chloride [Moles/Vol] 110 mmol/L Abnormal 98-107 [facility] Comment on above: Performed By: #### L [id number] #### [address] CO2 [Moles/Vol] 21 mmol/L Normal 21-31 [facility] Comment on above: Performed By: #### L [id number] #### [facility] [address] [place] [address] Creatinine [Mass/Vol] 1.2 mg/dL Normal 0.7-1.3 [facility] Comment on above: Performed By: #### L [id number] #### [address] [address] GFR MDRD NON AF AMER >60 Normal >60 [facility] Comment on above: Result Comment: GFR is estimated using creatinine, age, gender, and race. Patient's values should be interpreted as a trend. For additional information: [email or web address] Performed By: #### L [id number] #### [facility] [address] [place] [address] [place] GFR/1.73 sq M.predicted among blacks MDRD (S/P/Bld) [Vol rate/Area] mL/min/{1.73_m2} Normal >60 [facility] Comment on above: Result Comment: GFR is estimated using creatinine, age, gender, and race. Patient's values should be interpreted as a trend. For additional information: [email or web address] Performed By: #### L [id number] #### [facility] [address] [place], [place] [address] [facility] Glucose [Mass/Vol] 86 mg/dL Normal 74-109 [facility] Comment on above: Performed By: #### L [id number] #### [facility] [address] [address] [facility] Potassium [Moles/Vol] 3.6 mmol/L Normal 3.5-5.3 [facility] Comment on above: Performed By: #### L [id number] #### [facility] [address] [place] [address] Sodium [Moles/Vol] 142 mmol/L Normal 136-145 [facility] Comment on above: Performed By: #### L [id number] #### [facility] [address] [place] [address] Urea nitrogen [Mass/Vol] 10 mg/dL Normal 7-25 [facility] Comment on above: Performed By: #### L [id number] #### [facility] [address] [place], [place] [id number] [facility] CBC W/DIFFon 09-10-2021 BASOPHILS ABS AUTO 0.0 K/uL Normal 0.0-0.1 [facility] Comment on above: Performed By: #### L [id number] #### [facility] [address] [place] [address] Basophils/100 WBC (Bld) 0.2 % Normal [facility] Comment on above: Performed By: #### L [id number] #### [facility] [address] [place] [address] CBC W/DIFF Normal [facility] Comment on above: Result Comment: Rele ase to patient->Immediate Performed By: #### L [id number] #### [facility] [address] [place] [address] Eosinophils (Bld) [#/Vol] 0.1 10*3/uL Normal 0.0-0.4 [facility] Comment on above: Performed By: #### L [id number] #### [facility] [address] [place] [address] Eosinophils/100 WBC (Bld) 1.3 % Normal [facility] Comment on above: Performed By: #### L [id number] #### [facility] [address] [place] [address] Erythrocyte distribution width (RBC) [Ratio] 13.1 % Normal 11.7-15.2 [facility] Comment on above: Performed By: #### L [id number] #### [facility] [address] [place] [address] Hematocrit (Bld) [Volume fraction] 47.1 % Normal 39.0-51.5 [facility] Comment on above: Performed By: #### L [id number] #### [facility] [address] [place] [address] Hemoglobin (Bld) [Mass/Vol] 16.2 g/dL Normal 13.1-17.6 [facility] Comment on above: Performed By: #### L [id number] #### [facility] [address] [place] [address] Lymphocytes (Bld) [#/Vol] 0.9 10*3/uL Normal 0.8-3.6 [facility] Comment on above: Performed By: #### L [id number] #### [facility] [address] [place] [address] Lymphocytes/100 WBC (Bld) 11.8 % Normal [facility] Comment on above: Performed By: #### L [id number] #### [facility] [address] [place] [address] MCH (RBC) [Entitic mass] 30.5 pg Normal 28.4-33.4 [facility] Comment on above: Performed By: #### L [id number] #### [facility] [address] [place] [address] MCHC (RBC) [Mass/Vol] 34.3 g/dL Normal 31.1-37.0 [facility] Comment on above: Performed By: #### L [id number] #### [facility] [address] [place] [address] MCV (RBC) [Entitic vol] 88.8 fL Normal 85.0-99.0 [facility] Comment on above: Performed By: #### L [id number] #### [facility] [address] [place] [address] Monocytes (Bld) [#/Vol] 0.6 10*3/uL Normal 0.3-0.9 [facility] Comment on above: Performed By: #### L [id number] #### [facility] [address] [place] [address] Monocytes/100 WBC (Bld) 7.0 % Normal [facility] Comment on above: Performed By: #### L [id number] #### [facility] [address] [place] [address] NEUTROPHIL ABS AUTO 6.3 K/uL Normal 2.0-7.3 [facility] Comment on above: Performed By: #### L [id number] #### [facility] [address] [place] [address] Neutrophils/100 WBC (Bld) 79.8 % Normal [facility] Comment on above: Performed By: #### L [id number] #### [facility] [address] [place] [address] Platelets (Bld) [#/Vol] 198 10*3/uL Normal 154-393 [facility] Comment on above: Performed By: #### L [id number] #### [facility] [address] [place] [address] RBC (Bld) [#/Vol] 5.30 10*6/uL Normal 4.30-5.86 [facility] Comment on above: Performed By: #### L [id number] #### [facility] [address] [place] [address] WBC (Bld) [#/Vol] 7.9 10*3/uL Normal 4.0-10.5 [facility] Comment on above: Performed By: #### L [id number] #### [facility] [address] [place] [address] ED Provider Noteson 09-11-19 ED Provider Notes Encounter Department : [facility] ED Provider Notes by Martha Meier MD at 09/10/2021 4:17 PM Author: DEMETRIUS Melendezervice: Emergency MedicineAuthor Type: ED Physician Filed: 09/10/2021 6:58 PMDate of Service: 09/10/2021 4:17 PMStatus: Signed Chief Engineer Research: Martha Meier MD (ED Physician) CHIEF COMPLAINT History given by: pt Chief Complaint Patient presents with -Abdominal Pain -Rectal Bleeding -Diarrhea HPI Peter Jones is a 31 y.o. male who presents with abdominal pain diarrhea rectal bleeding and anxiety. Patient reports has been feeling unwell for the past 5 days or so. Just has not felt like eating and has had some nausea. He states today felt chilled. Nauseated without vomiting. Had some generalized abdominal discomfort with this and 4 episodes of diarrhea 1 of which was grossly bloody. He denies clots. He mentions his girlfriend was sick with similar symptoms and had some bloody diarrhea at that time. His abdominal pain is currently improving and gone. No fevers. He denies chest pain. He states his fingers are cold bilaterally and he feels a little short of breath and mentions that he is extremely anxious with this. He denies associated chest pain. He states his therapist has advised me that he not take the Vistaril consistently but notes that this does help his symptoms. He states he has a primary care physician and is working to get on some medications for his anxiety. He denies alcohol use and anti-inflammatory medication use. REVIEW OF SYSTEMS Constitutional: No fever, positive for chills Eye: No visual changes HENT: No earache or sore throat. Resp: Positive for shortness of breath Cardio: No chest pain GI: Positive for abdominal pain nausea and diarrhea : No dysuria or hematuria Musculoskeletal: No new muscle aches or joint pain. Neuro: No headaches. Skin: No rash PAST MEDICAL HISTORY Past Medical History: DiagnosisDate -Anxiety -Depression -Panic attacks FAMILY HISTORY No family history on file. SOCIAL HISTORY Social History Socioeconomic History -Marital status: Tobacco Use -Smoking status:Former Smoker Packs/day:1.00 Types:Cigarettes Quit date:04/11/2021 Years since quittin.4 -Smokeless tobacco:Former User Vaping Use -Vaping Use:Former -Quit date:02/27/2019 Substance and Sexual Activity -Alcohol use:No -Drug use:No -Sexual activity:Never SURGICAL HISTORY History reviewed. No pertinent surgical history. CURRENT MEDICATIONS No outpatient medications have been marked as taking for the 09/10/21 encounter (Hospital Encounter). ALLERGIES No Known Allergies PHYSICAL EXAM BP 117/83 Pulse 82 Temp 98.2 ?F (36.8 ?C) Resp 18 Ht 6' 3 (1.905 m) Wt 270 lb (122.5 kg) SpO2 97% BMI 33.75 kg/m? General: Well-nourished, well-developed, mild to moderate apparent distress Head: Normal cephalic, atraumatic, mask in place Eyes: PERRL, conjunctival normal, no discharge Neck: Supple, non tender Lymphatic: No cervical lymphadenopathy Cardiovascular: Regular rate and rhythm, no murmurs, rubs or gallops Pulmonary: Normal breath sounds bilaterally with good air entry; no wheezes, rhonchi or rales Abdominal: Non distended, soft, normoactive bowel sounds, millimeter under diffusely no guarding or rebound Skin: Warm, dry, no rashes on exposed surfaces, no mottling flushing or pallor Extremities: Radial pulses 2+ and equal bilaterally, no edema, normal capillary refill and perfusion Musculoskeletal: No major deformities Neurological: Alert, no facial asymmetry noted, speech is not slurred Psych: Appears anxious EKG Results for orders placed or performed during the hospital encounter of 09/10/21 EKG Standard 12 Lead ResultValueRef Range Heart Bkpr24erd RR KCCSKOOT306vo [place] Xciqxxfj162mr QRSD Zcwhutxt940bt QT Ptrmnsme416hw QTc Chswoauf565ki QRS Bptx2lqz T Wave Kjkm62rvw REPORT- ABNORMAL ECG - REPORTSinus rhythm REPORTNonspecific intraventricular conduction delay Interpreting Phys Confirmed by: Martha Meier) 10-Sep-2021 14:32:19 Study Date/TimeDate and Time of Study: 2021-09-10 14:20:33 RADIOLOGY/PROCEDURES Last Imaging results Results for orders placed or performed during the hospital encounter of 09/10/21 CT-ABD/PELVIS W IV CONTRAST ONLY Narrative PROCEDURE: CT-ABD/PELVIS W IV CONTRAST ONLY DATE OF EXAM: 09/10/2021 3:41 PM DEMOGRAPHICS: 31 years old Male INDICATION: History: Abdominal pain. Number of Series/Images: 4. Abdominal pain, acute, nonlocalized Contrast utilized and the relevant clinical information: History: Abdominal pain. Number of Series/Images: 4. Contrast Medication(s): IOHEXOL 350 MG/ML IV SOLN Amount Administered = 75 mL COMPARISON: No existing relevant imaging study corresponding to the same anatomical region is available. TECHNIQUE: Contiguous axial slices of the abdomen and pelvis were submit (more content not included)... Normal [facility] EKG STANDARD 12 LEADon 09-10 EKG STANDARD 12 LEAD HEART RATE= 79 bpm RR Interval= 756 ms P-R Interval= 151 ms QRSD Interval= 120 ms QT Interval= 384 ms QTcB= 442 ms QRS Conneaut= 0 deg T Wave Conneaut= 16 deg REPORT= - ABNORMAL ECG - REPORT= Sinus rhythm REPORT= Nonspecific intraventricular conduction delay INTERPRETING PHYS= Confirmed by: Martha Meier) 10-Sep-2021 14:32:19 Study Date/Time= Date and Time of Study: 2021-09-10 14:20:33 Normal [facility] LIPASEon 09-10-2021 LIPASE Normal [facility] Comment on above: Result Comment: Rele ase to patient->Immediate Performed By: #### L [id number] #### [facility] [address] [place] [id number] Lipase [Catalytic activity/Vol] 25 U/L Normal 11-82 [facility] Comment on above: Performed By: #### L [id number] #### [facility] [address] [place] [id number] [facility] LIVER PROFILE PANELon 2021 Albumin [Mass/Vol] 4.6 g/dL Normal 3.5-5.7 [facility] Comment on above: Performed By: #### L AB17 #### [facility] [address] [place] [phone] [facility] ALP [Catalytic activity/Vol] 42 U/L Normal 34-104 [facility] Comment on above: Result Comment: Ean luevano note the new reference range for this test. Performed By: #### L AB17 #### [facility] [address] [place] [id number] [facility] ALT [Catalytic activity/Vol] 15 U/L Normal 7-52 [facility] Comment on above: Result Comment: Due to new chemistry methodology at some [facility] labs, please re-baseline this test for any patients being transferred from a different location. Performed By: #### L AB17 #### [facility] [address] [place] [id number] [facility] AST [Catalytic activity/Vol] 15 U/L Normal 13-39 [facility] Comment on above: Performed By: #### L AB17 #### [facility] [address] [place] [id number] [facility] Bilirubin [Mass/Vol] 1.3 mg/dL Abnormal 0.3-1.0 [facility] Comment on above: Performed By: #### L AB17 #### [facility] [address] [place] [id number] Bilirubin.indirect [Mass/Vol] 0.20 mg/dL Normal <=0.20 [facility] Comment on above: Performed By: #### L AB17 #### [facility] [address] [place] [id number] LIVER PROFILE PANEL Normal [facility] Comment on above: Result Comment: Rele ase to patient->Immediate Performed By: #### L AB17 #### [address] [id number] [facility] Protein [Mass/Vol] 7.1 g/dL Normal 6.0-8.3 [facility] Comment on above: Performed By: #### L AB17 #### [facility] [address] [place] [id number] [place] URINE CULTURE, CONDITIONALon 09-10-2021 BILIRUBIN, UA Negative Normal Negative [facility] Comment on above: Performed By: #### L AB17 #### [facility] [address] [place] [phone] [facility] BLOOD, UA Negative Normal Negative [facility] Comment on above: Performed By: #### L AB17 #### [facility] [address] [place] [id number] [facility] Clarity (U) Clear Normal Clear [facility] Comment on above: Performed By: #### L AB17 #### [address] Color (U) Light yellow Abnormal Yellow [facility] Comment on above: Performed By: #### L AB17 #### [address] GLUCOSE, UA Negative Normal Negative [facility] Comment on above: Performed By: #### L AB17 #### [address] KETONES, UA 10 mg/dL Abnormal Negative [facility] Comment on above: Performed By: #### L AB17 #### [address] LEUKOCYTES, UA Negative Normal Negative [facility] Comment on above: Performed By: #### L AB17 #### [address] Nitrite Ql (U) Negative Normal Negative [facility] Comment on above: Performed By: #### L AB17 #### [address] pH (U) 8.0 [pH] Normal 5.0-8.0 [facility] Comment on above: Performed By: #### L AB17 #### [address] Protein (U) [Mass/Vol] 10 mg/dL Abnormal Negative [facility] Comment on above: Performed By: #### L AB17 #### [address] SPECIFIC GRAVITY, UA CATEGORY <1.005 Abnormal 1.010 - 1.025 [facility] Comment on above: Performed By: #### L AB17 #### [address] URINE CULTURE, CONDITIONAL Normal [facility] Comment on above: Result Comment: Rele ase to patient->Immediate Performed By: #### L AB17 #### [facility] [address] [place] [address] UROBILINOGEN, UA Normal Normal Normal [facility] Comment on above: Performed By: #### L AB17 #### [address] URINE CULTURE, CONDITIONAL, NOT PERFORMEDon 09-10-2021 URINE CULTURE, CONDITIONAL, NOT PERFORMED URINE CULTURE NOT PERFORMED Conditions not met for Urine Culture Normal [facility] Comment on above: Order Comment: Relea se to patient->Immediate Performed By: #### L AB17 #### [address] URINE MICROSCOPIC REFLEX CUL TUREon 09-10-2021 AMORPHOUS CRYSTALS Trace Abnormal Negative [facility] Comment on above: Performed By: #### L AB17 #### [address] Epithelial cells LM Ql (Urine sed) 0-3 Normal 0-3 [facility] Comment on above: Performed By: #### L AB17 #### [address] URINE MICROSCOPIC REFLEX CULTURE Normal [facility] Comment on above: Result Comment: Cult ure of the urine specimen was not completed as criteria were not met. Release to patient->Immediate Performed By: #### L AB17 #### [address] XR-CHEST PORTABLE Denzel XR-CHEST PORTABLE STAT EXAMINATION: XR-CHEST PORTABLE STAT DATE OF EXAM: 09/10/2021 2:27 PM DEMOGRAPHICS: 31 years old Male INDICATION: dyspnea History: dyspnea. Number of Series/Images: 2. COMPARISON: 12/29/2018 TECHNIQUE: Single AP portable chest radiograph was obtained. FINDINGS: Cardiomediastinal silhouette and pulmonary vasculature are within normal limits. The lungs are clear and well-aerated. The costophrenic angles are sharp. There is no evidence of a pleural effusion or pneumothorax. There is no acute osseous abnormality. IMPRESSION: IMPRESSION: 1. No acute cardiopulmonary disease This dictation was created with voice recognition software. While attempts have been made to review the dictation as it is transcribed, on occasion the spoken word can be misinterpreted by the technology leading to omissions or inappropriate words, phrases or sentences. Electronically Signed by: Yaquelin Gustafson, 09/10/2021 2:27 PM Normal [facility] ED Provider Noteson 09-05-19 ED Provider Notes Encounter Department : [facility] EMERGENCY ED Provider Notes by David Ritter MD at 09/03/2021 11:36 PM Author: DEMETRIUS Sierraervice: Emergency MedicineAuthor Type: ED Physician Filed: 09/04/2021 5:29 AMDate of Service: 09/03/2021 11:36 PMStatus: Signed Chief Engineer Research: David Ritter MD (ED Physician) TRIAGE CHIEF COMPLAINT: Chief Complaint Patient presents with -Panic Attack HPI: Peter Joens is a 31 y.o. male who presents from home with complaints of a panic attack. The patient has a longstanding history of anxiety and panic attacks and is not on any medications. He states that he has been on Zoloft and Wellbutrin in the past, but it was giving him shooting pains to his left occipital region and his pharmacist told him to stop. He states that this evening he developed left-sided sharp, stabbing pain, with no aggravating or alleviating factors, no radiation or migration. Patient states that he has never had chest pain before and was concerned. Denies any fevers or chills, does state some chest tightness, denies any nausea, vomiting or diarrhea. REVIEW OF SYSTEMS: Review of Systems Constitutional: Negative for activity change, appetite change, chills and fever. HENT: Negative for congestion, rhinorrhea and sore throat. Eyes: Negative for visual disturbance. Respiratory: Positive for chest tightness. Negative for cough, shortness of breath, wheezing and stridor. Cardiovascular: Positive for chest pain. Negative for palpitations and leg swelling. Gastrointestinal: Negative for abdominal pain, constipation, diarrhea, nausea and vomiting. Genitourinary: Negative for dysuria and hematuria. Musculoskeletal: Negative for arthralgias, back pain, joint swelling, myalgias and neck pain. Skin: Negative for color change, pallor, rash and wound. Neurological: Negative for dizziness, weakness, light-headedness, numbness and headaches. Hematological: Negative for adenopathy. Does not bruise/bleed easily. Psychiatric/Behavioral: The patient is nervous/anxious. PAST MEDICAL HISTORY: History reviewed. No pertinent past medical history. CURRENT MEDICATIONS: No current facility-administered medications on file prior to encounter. Current Outpatient Medications on File Prior to Encounter MedicationSigDispenseRefill -[DISCONTINUED] amoxicillin-clavulanate (AUGMENTIN) 875-125 mg tabletTake 1 tablet by mouth 2 times a day for 7 days.14 tablet0 -[DISCONTINUED] FLUoxetine (PROZAC) 20 mg capsuleTake 1 capsule (20 mg total) by mouth daily for 14 days.14 capsule0 -[DISCONTINUED] traZODone (DESYREL) 50 mg tabletTake 1 tablet (50 mg total) by mouth at bedtime for 14 days.14 tablet0 SURGICAL HISTORY: History reviewed. No pertinent surgical history. FAMILY HISTORY: No family history on file. SOCIAL HISTORY: Social History Socioeconomic History -Marital status: Tobacco Use -Smoking status:Former Smoker Packs/day:1.00 Types:Cigarettes Quit date:04/11/2021 Years since quittin.4 -Smokeless tobacco:Former User Vaping Use -Vaping Use:Former -Quit date:02/27/2019 Substance and Sexual Activity -Alcohol use:No -Drug use:No -Sexual activity:Never ALLERGIES: Patient has no known allergies. PHYSICAL EXAM: TRIAGE VITALS: ED Triage Vitals BP09/03/21 2340(!) 125/113 Temp09/03/21 411477.1 ?F (36.2 ?C) Pulse09/03/21 [id number] Resp09/03/21 883182 TvS54409/03/21 1235793 % Xpwrtc69/11/22 2404589 lb (127 kg) Art Coma Scale Score09/03/21 847920 BMI (Calculated)-- Constitutional: Moderate distress with significant anxiety, Non-toxic appearance HENT: Normocephalic, Atraumatic, Bilateral external ears normal, Oropharynx moist, Nose normal. Eyes: Conjunctiva normal, No discharge. Neck:No stridor. Cardiovascular: Normal heart rate, Normal rhythm, No murmurs, No rubs, No gallops. Pulmonary/Chest: Clear to auscultation bilaterally, No respiratory distress, No wheezing. Abdomen: Soft, Normal bowel sounds, No tenderness, No masses. Back: No tenderness, No CVA tenderness. Extremities: No edema, No tenderness, No cyanosis, No clubbing. Musculoskeletal: Good range of motion in all major joints as observed. No major deformities noted. Neurologic: Alert AND oriented x 3, Normal motor function, Normal sensory function, No focal deficits. Skin: Warm, Dry, No erythema, No rash. Normal capillary refill, without peripheral mottling or flushing Psychiatric: Questionable judgment, severe anxiety EKG: Results for orders placed or performed during the hospital encounter of 09/03/21 EKG Standard 12 Lead ResultValueRef Range Heart Tyaw60pkb RR BADCCCWC171cf [place] Smymygmz853ah QRSD Gjzfqqum241in QT Tcusrgdw251hm QTc Tudxglbn640gm QRS Lfgd04slf T Wave Qhtj72ako REPORT- ABNORMAL ECG - REPORTSinus rhythm Interpreting Phys Confirmed by: David Ritter) 04-Sep-2021 05:22:08 Study Date/TimeDate and T (more content not included)... Normal [facility] EKG STANDARD 12 LEADon 09-04 EKG STANDARD 12 LEAD HEART RATE= 80 bpm RR Interval= 752 ms P-R Interval= 164 ms QRSD Interval= 118 ms QT Interval= 388 ms QTcB= 447 ms QRS Conneaut= 29 deg T Wave Conneaut= 16 deg REPORT= - ABNORMAL ECG - REPORT= Sinus rhythm INTERPRETING PHYS= Confirmed by: David Ritter) 04-Sep-2021 05:22:08 Study Date/Time= Date and Time of Study: 2021-09-03 23:58:43 Normal [facility] ED Provider Noteson 08-30-19 ED Provider Notes Encounter Department : [facility] EMERGENCY ED Provider Notes by Janey Bailon MD at 08/29/2021 7:55 PM Author: DEMETRIUS Pryorervice: Emergency MedicineAuthor Type: ED Physician Filed: 08/30/2021 3:55 PMDate of Service: 08/29/2021 7:55 PMStatus: Signed Chief Engineer Research: Janey Bailon MD (ED Physician) CHIEF COMPLAINT Chief Complaint Patient presents with -Oral Pain HPI Peter Jones is a 31 y.o. male with past medical history of anxiety who present to the Emergency Department with oral pain Patient states that due to poor dentition for multiple weeks and associated mild pain he has a dental appointment scheduled for tomorrow morning. However today he notices lumps on the top of his mouth which he was concerned for a dental infection. Patient denies any fevers, chills, trouble with PO liquids, SOB, CP, or any other concerning symptoms. Patient denies any worsening pain in his mouth and states his baseline pain is worse with movement and better with rest. Took OTC meds w/ minimal relief. REVIEW OF SYSTEMS Constitutional-Negative changes in weight, lethargy, fever Eyes-Negative drainage, redness ENT-Negative epistaxis, trismus. Positive mouth pain Cardiovascular-Negative palpitations, PND, orthopnea Respiratory-Negative hemoptysis, dyspnea Gastrointestinal-Negative melena, hematemesis Genitourinary-Negative hematuria, dysuria Musculoskeletal-Negative joint effusion or redness Neurological-Negative seizures,vertigo, or paresthesias Skin-Negative itching, rash Extremities-Negative calf tenderness, pitting edema Psychiatric-Negative suicidal or homicidal ideations PAST MEDICAL HISTORY No past medical history on file. FAMILY HISTORY No family history on file. SOCIAL HISTORY Social History Socioeconomic History -Marital status: Tobacco Use -Smoking status:Former Smoker Packs/day:1.00 Types:Cigarettes Quit date:04/11/2021 Years since quittin.3 -Smokeless tobacco:Former User Vaping Use -Vaping Use:Former -Quit date:02/27/2019 Substance and Sexual Activity -Alcohol use:No -Drug use:No -Sexual activity:Never SURGICAL HISTORY No past surgical history on file. CURRENT MEDICATIONS Prior to Admission medications MedicationSigStart DateEnd DateTaking?Authorizing Provider amoxicillin-clavulanate (AUGMENTIN) 875-125 mg tabletTake 1 tablet by mouth 2 times a day for 7 days.Janey Bailon MD FLUoxetine (PROZAC) 20 mg capsuleTake 1 capsule (20 mg total) by mouth daily for 14 days.04/26/2112/Jose Enrique Wynne Jr., MD traZODone (DESYREL) 50 mg tabletTake 1 tablet (50 mg total) by mouth at bedtime for 14 days.04/26/2112Jose Enrique Wynne Jr., MD ALLERGIES No Known Allergies PHYSICAL EXAM VITAL SIGNS: ED Triage Vitals [08/29/211924] BP138/92 Temp98.2 ?F (36.8 ?C) Pulse81 Resp18 CaH886 % Scwhte743 lb (127 kg) Art Coma Scale Score15 BMI (Calculated)35.1 Constitutional: Well developed, Well nourished, No acute distress HENT: Normocephalic, Atraumatic, Bilateral external ears normal, Oropharynx moist, No oral exudates, Nose normal. Uvula midline, patent posterior oropharynx. Poor dentition. Pt points to swelling in the mouth where bony prominences are palpated. Non-erythematous, non-edematous, no fluctuance. Eyes: PERRL, EOMI, Conjunctiva normal, No discharge. Neck: Normal range of motion, No tenderness, Supple, No stridor. Lymphatic: No lymphadenopathy noted. Cardiovascular: Normal heart rate, Normal rhythm, No murmurs, No rubs, No gallops. Thorax AND Lungs: Normal breath sounds, No respiratory distress, No wheezing, No chest tenderness. Abdomen: Bowel sounds normal, Soft, No tenderness, No masses, No pulsatile masses. Skin: Warm, Dry, No erythema, No rash. Back: No tenderness, No CVA tenderness. Extremities: Intact distal pulses, No edema, No tenderness, No cyanosis, No clubbing. Musculoskeletal: Good range of motion in all major joints. No tenderness to palpation or major deformities noted. Neurologic: Alert AND oriented x 3, Normal motor function, Normal sensory function, No focal deficits noted. Psychiatric: Affect normal, Judgment normal, Mood normal. EKG No results found for this visit on 08/29/21. RADIOLOGY No results found for this visit on 08/29/21. PROCEDURES Diagnostic Data No data to display Medications - No data to display COURSE AND MEDICAL DECISION MAKING Patient Vitals for the past 24 hrs: GAQwjtOolhcGqlbQeX8OekzkdZeu [facility] 08/29/21 4169685/90-4139790 %-- 08/29/21 0332904/9298.2 ?F (36.8 ?C)379034 %6' 3 (1.905 m)280 lb (127 kg) Pt presents with concern for new growths in the mouth that suggests worsening infection. On physical exam it is found that the patient is palpating normal anatomical bony outgrowths in the mouth. Reassuring that PE shows no concerning features and vital signs WNL. Pt will be provided abx due to poor dentition and pt will be DC w/ instruction (more content not included)... Normal [facility] CBC with Auto Differentialon 2021 Basophils (Bld) [#/Vol] 0.0 10*3/uL 0.0 - 0.2 K/uL [employer] Basophils/100 WBC (Bld) 0.4 % [employer] Eosinophils (Bld) [#/Vol] 0.1 10*3/uL 0.0 - 0.6 K/uL [employer] Eosinophils/100 WBC (Bld) 2.2 % [employer] Hematocrit (Bld) [Volume fraction] 44.2 % 40.5 - 52.5 % [employer] Hemoglobin.gastroin testinal spec 1 Ql (Stl) 15.2 g/dL 13.5 - 17.5 g/dL [employer] Lymphocytes (Bld) [#/Vol] 1.7 10*3/uL 1.0 - 5.1 K/uL [employer] Lymphocytes/100 WBC (Bld) 25.0 % [employer] MCH (RBC) [Entitic mass] 29.9 pg 26.0 - 34.0 pg [employer] MCHC (RBC) [Mass/Vol] 34.5 g/dL 31.0 - 36.0 g/dL [employer] MCV (RBC) [Entitic vol] 86.7 fL 80.0 - 100.0 fL [employer] Monocytes (Bld) [#/Vol] 0.5 10*3/uL 0.0 - 1.3 K/uL [employer] Monocytes/100 WBC (Bld) 7.6 % [employer] Neutrophils Absolute 4.3 K/uL 1.7 - 7.7 K/uL [employer] Neutrophils/100 WBC (Bld) 64.8 % [employer] Platelet distribution width (Bld) [Ratio] 13.0 % 12.4 - 15.4 % [employer] Platelet mean volume (Bld) [Entitic vol] 7.5 fL 5.0 - 10.5 fL [facility] [employer] Platelets (Bld) [#/Vol] 213 10*3/uL 135 - 450 K/uL [facility] RBC (Bld) [#/Vol] 5.10 10*6/uL [facility] WBC (Bld) [#/Vol] 6.6 10*3/uL 4.0 - 11.0 K/uL [facility] [employer] Comprehensive Metabolic Pane l w/ Reflex to MGon 2021 Albumin [Mass/Vol] 5.1 g/dL High 3.4 - 5.0 g/dL [facility] [employer] Albumin/Globulin [Mass ratio] 2.2 {ratio} [facility] [employer] ALP (Bld) [Catalytic activity/Vol] 56 U/L 40 - 129 U/L [facility] ALT [Catalytic activity/Vol] 20 U/L 10 - 40 U/L [facility] [employer] Anion gap [Moles/Vol] 12 mmol/L [facility] [employer] AST [Catalytic activity/Vol] 20 U/L 15 - 37 U/L [facility] Bilirubin [Mass/Vol] 0.7 mg/dL 0.0 - 1.0 mg/dL [facility] [employer] Calcium [Mass/Vol] 10.0 mg/dL 8.3 - 10. 6 mg/dL [facility] Chloride [Moles/Vol] 107 mmol/L 99 - 110 mmol/L [facility] CO2 [Moles/Vol] 22 mmol/L 21 - 32 mmol/L [facility] [employer] Creatinine [Mass/Vol] 1 mg/dL 0.9 - 1.3 mg/dL [facility] [employer] Free PSA/Total PSA [Mass fraction] 7.4 g/dL 6.4 - 8.2 g/dL [facility] GFR >60 >60 [facility] [employer] Comment on above: Chronic Kidney Disea se: less than 60 ml/min/1.73 sq.m. Kidney Failure: less than 15 ml/min/1.73 sq.m. Results valid for patients 18 years and older. GFR Non- >60 >60 [facility] Comment on above: >60 mL/min/1.73m2 EG FR, calc. for ages 18 and older using the MDRD formula (not corrected for weight), is valid for stable renal function. Glucose [Mass/Vol] 89 mg/dL 70 - 99 mg/dL [facility] [employer] Interpretation and review of laboratory results Abnormal [facility] [employer] Potassium [Moles/Vol] 3.4 mmol/L Low 3.5 - 5.1 mmol/L [facility] [employer] Sodium [Moles/Vol] 141 mmol/L 136 - 145 mmol/L [facility] Urea nitrogen (BldV) [Mass/Vol] 10 mg/dL 7 - 20 mg/dL [facility] Magnesiumon 2021 Magnesium [Mass/Vol] 2.20 mg/dL 1.80 - 2.40 mg/dL [facility] No Panel Informationon 08-11 [facility] Troponinon 2021 Troponin I.cardiac [Mass/Vol] ng/mL <0.01 ng/mL [facility] Comment on above: Methodology by [employer] T XR CHEST PORTABLEon 08-12-19 No acute cardiopulmo nary abnormality. [facility] EXAMINATION: ONE XRAY VIEW OF THE CHEST 2021 4:39 pm COMPARISON: None. HISTORY: ORDERING SYSTEM PROVIDED HISTORY: panic attack, palpitations TECHNOLOGIST PROVIDED HISTORY: Reason for exam:->panic attack, palpitations Reason for Exam: panic attack, heart palpitations FINDINGS: The heart is normal. The pulmonary vessels are normal. The lungs are mildly hyperinflated. No consolidation or effusion is seen. The bones are intact. [facility] Christian Bell MD - 2021 EXAMINATION: ONE XRAY VIEW OF THE CHEST 2021 4:39 pm COMPARISON: None. HISTORY: ORDERING SYSTEM PROVIDED HISTORY: panic attack, palpitations TECHNOLOGIST PROVIDED HISTORY: Reason for exam:->panic attack, palpitations Reason for Exam: panic attack, heart palpitations FINDINGS: The heart is normal. The pulmonary vessels are normal. The lungs are mildly hyperinflated. No consolidation or effusion is seen. The bones are intact. IMPRESSION: No acute cardiopulmonary abnormality. [employer] Work Phone: Radiology Study observation (narrative) [employer] Work Phone: XR CHEST PORTABLEOrdered By: Christian Bell on 2021 [employer] Phone: ED Provider Noteson 08-10-19 ED Provider Notes Encounter Department : [facility] EMERGENCY ED Provider Notes by Jose Enrique Wynne Jr., MD at 08/09/2021 11:37 AM Author: DEMETRIUS Currie Jr.ervice: Emergency MedicineAuthor Type: ED Physician Filed: 08/09/2021 2:40 PMDate of Service: 08/09/2021 11:37 AMStatus: Signed Chief Engineer Research: Jose Enrique Wynne Jr., MD (ED Physician) FINAL IMPRESSION ICD-10-CM 1.Anxiety state F41.1 DISPOSITION PLAN -Home DISCHARGE MEDICATION Discharge Medication List as of 08/09/2021 11:38 AM COURSE AND MEDICAL DECISION MAKING Repeat Vitals: BP: 114/89 (08/09 1140) Temp: 98.2 ?F (36.8 ?C) (08/09 1032) Pulse: 88 (08/09 1140) Resp: 17 (08/09 1140) SpO2: 98 % (08/09 1140) FiO2 (%): -- O2 Flow Rate (L/min): -- Cardiac (WDL): -- Cardiac Rhythm: -- Medications - No data to display Peter Jones is a 30 y.o. male who presents with complaint of panic attack. Patient known to me from previous emergency department visit. He recently self discontinued abruptly his Wellbutrin, has also recently discontinued use of nicotine, caffeine and alcohol. He has been receiving treatment with hydroxyzine as well as Ativan but does not like the side effects of these medications. He denies any suicide or homicide ideations, no visual or auditory hallucinations. He notes his heart racing with palpitations. He feels as if he is going to . He notes no aggravating or relieving factors. On examination he is very anxious with psychomotor agitation, but is not suffering from any obvious auditory or visual hallucinations. He is cooperative and pleasant to discussion and examination. Cardiac is regular and not tachycardic on my evaluation, breath sounds are clear bilaterally. After discussion, patient does not wish to receive any pharmacologic interventions in the emergency department but he plans to return home and resume his Wellbutrin (I discussed that if he wants to discontinue this medication it needs to be tapering) as well as some nicotine as these have helped his symptoms in the past. CHIEF COMPLAINT Chief Complaint Patient presents with -Panic Attack HPI Peter Jones is a 30 y.o. male who presents with complaint of panic attack. Patient known to me from previous emergency department visit. He recently self discontinued abruptly his Wellbutrin, has also recently discontinued use of nicotine, caffeine and alcohol. He has been receiving treatment with hydroxyzine as well as Ativan but does not like the side effects of these medications. He denies any suicide or homicide ideations, no visual or auditory hallucinations. He notes his heart racing with palpitations. He feels as if he is going to . He notes no aggravating or relieving factors. REVIEW OF SYSTEMS CONSTITUTIONAL:Denies fever, chills or weight loss EYES:Denies vision changes ENT:Denies sore throat or ear pain CARDIOVASCULAR:As above RESPIRATORY:Denies cough or shortness of breath GI:No nausea. No vomiting or diarrhea. No abdominal pain :No urinary frequency or hematuria MS:Denies back pain or other joint pain SKIN:No rash NEUROLOGIC:Denies headache. No extremity weakness. No paresthesia. ENDOCRINE:Denies polydipsia or polyuria LYMPHATIC:Denies swollen glands PSYCHIATRIC:As above ALLERGIC:No pruritis or angioedema symptoms PAST MEDICAL HISTORY History reviewed. No pertinent past medical history. Above past medical conditions reviewed and verified by me. SURGICAL HISTORY History reviewed. No pertinent surgical history. SOCIAL HISTORY Lives at home. FAMILY HISTORY Non-contributory MEDICATIONS No outpatient medications have been marked as taking for the 08/09/21 encounter (Hospital Encounter). ALLERGIES No Known Allergies PHYSICAL EXAM VITAL SIGNS:ED Triage Vitals [08/09/21 1032] BP (!) 125/105 Temp 98.2 ?F (36.8 ?C) Pulse 100 Resp 17 SpO2 100 % Weight 280 lb (127 kg) Art Coma Scale Score 15 BMI (Calculated) 35.1 CONSTITUTIONAL:Well developed, Well nourished, No acute distress, Non-toxic appearance. HENT:Normocephalic, Atraumatic, Bilateral external ears normal, Oropharynx moist, No oral exudates, Nose normal. EYES:PERRL, EOMI, Conjunctiva normal, No discharge. NECK:Full ROM, no stridor LYMPH:No visible adenopathy SKIN:Warm, Dry, No erythema, No rash. EXTREMITIES:Intact distal pulses and symmetric, No edema, No tenderness, No cyanosis, No clubbing MS:Good range of motion in all major joints. NEURO:Alert AND oriented x 3, No focal deficits noted. PSYCHIATRIC:Affect normal, Judgment normal, Mood normal. Very anxious Electronically signed by: Jose Enrique Wynne Jr., MD 08/09/21 1440 Normal [facility] CBC W/DIFFon 06-17-2021 BASOPHILS ABS AUTO 0.0 K/uL Normal 0.0-0.1 [facility] Comment on above: Performed By: #### L [id number] #### [facility] [place] [facility] [address] [place] [address] Basophils/100 WBC (Bld) 0.4 % Normal [facility] Comment on above: Performed By: #### L [id number] #### [facility] [place] [facility] [address] [place] [address] CBC W/DIFF Normal [facility] Comment on above: Result Comment: Rele ase to patient->Immediate Performed By: #### L [id number] #### [facility] [place] [facility] [address] [place] [address] Eosinophils (Bld) [#/Vol] 0.1 10*3/uL Normal 0.0-0.4 [facility] Comment on above: Performed By: #### L [id number] #### [facility] [address] [place] [address] Eosinophils/100 WBC (Bld) 1.7 % Normal [facility] Comment on above: Performed By: #### L [id number] #### [facility] [place] [facility] [address] [place] [address] Erythrocyte distribution width (RBC) [Ratio] 13.1 % Normal 11.7-15.2 [facility] Comment on above: Performed By: #### L [id number] #### [facility] [place] [facility] [address] [place] [address] Hematocrit (Bld) [Volume fraction] 44.1 % Normal 39.0-51.5 [facility] Comment on above: Performed By: #### L [id number] #### [facility] [address] [place] [address] Hemoglobin (Bld) [Mass/Vol] 15.7 g/dL Normal 13.1-17.6 [facility] Comment on above: Performed By: #### L [id number] #### [facility] [address] [place] [address] Lymphocytes (Bld) [#/Vol] 1.5 10*3/uL Normal 0.8-3.6 [facility] Comment on above: Performed By: #### L [id number] #### [facility] [address] [place] [address] Lymphocytes/100 WBC (Bld) 29.8 % Normal [facility] Comment on above: Performed By: #### L [id number] #### [facility] [address] [place] [address] MCH (RBC) [Entitic mass] 31.4 pg Normal 28.4-33.4 [facility] Comment on above: Performed By: #### L [id number] #### [facility] [address] [place] [address] MCHC (RBC) [Mass/Vol] 35.6 g/dL Normal 31.1-37.0 [facility] Comment on above: Performed By: #### L [id number] #### [facility] [address] [place] [address] MCV (RBC) [Entitic vol] 88.2 fL Normal 85.0-99.0 [facility] Comment on above: Performed By: #### L [id number] #### [facility] [address] [place] [address] Monocytes (Bld) [#/Vol] 0.4 10*3/uL Normal 0.3-0.9 [facility] Comment on above: Performed By: #### L [id number] #### [facility] [address] [place] [address] Monocytes/100 WBC (Bld) 7.5 % Normal [facility] Comment on above: Performed By: #### L [id number] #### [facility] [address] [place] [address] NEUTROPHIL ABS AUTO 3.1 K/uL Normal 2.0-7.3 [facility] Comment on above: Performed By: #### L [id number] #### [facility] [address] [place] [address] Neutrophils/100 WBC (Bld) 60.7 % Normal [facility] Comment on above: Performed By: #### L [id number] #### [facility] [address] [place] [address] Platelets (Bld) [#/Vol] 243 10*3/uL Normal 154-393 [facility] Comment on above: Performed By: #### L [id number] #### [facility] [address] [place] [address] RBC (Bld) [#/Vol] 5.00 10*6/uL Normal 4.30-5.86 [facility] Comment on above: Performed By: #### L [id number] #### [facility] [address] [place] [address] WBC (Bld) [#/Vol] 5.1 10*3/uL Normal 4.0-10.5 [facility] Comment on above: Performed By: #### L [id number] #### [facility] [address] [place] [address] COMPREHENSIVE METABOLIC PANE Cristino 06-17-2021 Albumin [Mass/Vol] 4.5 g/dL Normal 3.5-5.7 [facility] Comment on above: Performed By: #### L [id number] #### [facility] [address] [place] [address] Albumin/Globulin [Mass ratio] 2.0 {ratio} Normal 1.0-2.0 [facility] Comment on above: Performed By: #### L [id number] #### [facility] [address] [place] [address] ALP [Catalytic activity/Vol] 37 U/L Normal 34-104 [facility] Comment on above: Result Comment: Ean luevano note the new reference range for this test. Performed By: #### L [id number] #### [facility] [address] [place] [address] ALT [Catalytic activity/Vol] 19 U/L Normal 7-52 [facility] Comment on above: Result Comment: Due to new chemistry methodology at some [facility] labs, please re-baseline this test for any patients being transferred from a different location. Performed By: #### L [id number] #### [facility] [address] [place] [address] Anion gap [Moles/Vol] 10 mmol/L Normal 7-16 [facility] Comment on above: Performed By: #### L [id number] #### [facility] [address] [place] [address] AST [Catalytic activity/Vol] 15 U/L Normal 15-39 [facility] Comment on above: Performed By: #### L [id number] #### [facility] [address] [place] [address] Bilirubin [Mass/Vol] 1.3 mg/dL Abnormal 0.3-1.0 [facility] Comment on above: Performed By: #### L [id number] #### [facility] [address] [place] [address] Calcium [Mass/Vol] 9.2 mg/dL Normal 8.6-10.2 [facility] Comment on above: Performed By: #### L [id number] #### [facility] [address] [place] [address] Chloride [Moles/Vol] 111 mmol/L Abnormal 98-107 [facility] Comment on above: Performed By: #### L [id number] #### [facility] [address] [place] [address] CO2 [Moles/Vol] 23 mmol/L Normal 21-31 [facility] Comment on above: Performed By: #### L [id number] #### [facility] [place] [facility] [address] [place] [address] COMPREHENSIVE METABOLIC PANEL Normal [facility] Comment on above: Result Comment: Rele ase to patient->Immediate Performed By: #### L [id number] #### [facility] [address] [place] [address] Creatinine [Mass/Vol] 1.1 mg/dL Normal 0.7-1.3 [facility] Comment on above: Performed By: #### L [id number] #### [facility] [address] [place] [address] GFR MDRD NON AF AMER >60 Normal >60 [facility] Comment on above: Result Comment: GFR is estimated using creatinine, age, gender, and race. Patient's values should be interpreted as a trend. For additional information: [email or web address] Performed By: #### L [id number] #### [facility] [address] [place] [address] GFR/1.73 sq M.predicted among blacks MDRD (S/P/Bld) [Vol rate/Area] mL/min/{1.73_m2} Normal >60 [facility] Comment on above: Result Comment: GFR is estimated using creatinine, age, gender, and race. Patient's values should be interpreted as a trend. For additional information: [email or web address] Performed By: #### L [id number] #### [facility] [address] [place] [address] Globulin (S) [Mass/Vol] 2.3 g/dL Abnormal 2.6-4.2 [facility] Comment on above: Performed By: #### L [id number] #### [facility] [address] [place] [address] Glucose [Mass/Vol] 100 mg/dL Normal 74-109 [facility] Comment on above: Performed By: #### L [id number] #### [facility] [address] [place] [address] Potassium [Moles/Vol] 3.2 mmol/L Abnormal 3.5-5.3 [facility] Comment on above: Performed By: #### L [id number] #### [facility] [address] [place] [address] Protein [Mass/Vol] 6.8 g/dL Normal 6.0-8.3 [facility] Comment on above: Performed By: #### L [id number] #### [facility] [address] [place] [address] Sodium [Moles/Vol] 144 mmol/L Normal 136-145 [facility] Comment on above: Performed By: #### L [id number] #### [facility] [address] [place] [address] Urea nitrogen [Mass/Vol] 13 mg/dL Normal 7-25 [facility] Comment on above: Performed By: #### L [id number] #### [facility] [address] [place] [address] ED Provider Noteson 06-17-19 ED Provider Notes Encounter Department : [facility] EMERGENCY ED Provider Notes by Carl Fernandez MD at 06/17/2021 9:52 AM Author: DEMETRIUS Duervice: Emergency MedicineAuthor Type: ED Physician Filed: 06/17/2021 10:53 AMDate of Service: 06/17/2021 9:52 AMStatus: Signed Chief Engineer Research: Carl Fernandez MD (ED Physician) CHIEF COMPLAINT Chief Complaint Patient presents with -Suspected Coronavirus (Covid-19) HPI Peter Jones is a 30 y.o. male who presents with increased anxiety as well as concern for dehydration. Patient states that he was diagnosed with COVID a little over 2 weeks ago. He states that since that time he has had a dry mouth and has felt dehydrated. He states he was seen here about a week ago and received IV fluids but it did not help him feel that much better. His [id number] last night, and he states that this is greatly worsened his anxiety. He denies suicidal or homicidal ideation. He states his urine has been little dark. He states he mainly just wants to make sure that his kidneys and his liver are okay. He states he does not want additional IV fluids. He does not want to talk with a mental health professional. REVIEW OF SYSTEMS Review of Systems Constitutional: Negative for chills and fever. HENT: Positive for congestion. Negative for sore throat. Eyes: Negative for redness. Respiratory: Positive for cough. Cardiovascular: Negative for chest pain and palpitations. Gastrointestinal: Negative for abdominal pain, nausea and vomiting. Genitourinary: Negative for dysuria and urgency. Musculoskeletal: Negative for falls. Skin: Negative for rash. Neurological: Negative for focal weakness and loss of consciousness. Endo/Heme/Allergies: Does not bruise/bleed easily. Psychiatric/Behavioral: The patient is nervous/anxious. PAST MEDICAL HISTORY History reviewed. No pertinent past medical history. FAMILY HISTORY No family history on file. SOCIAL HISTORY Social History Socioeconomic History -Marital status: Spouse name:None -Number of children:None -Years of education:None -Highest education level:None Occupational History -None Tobacco Use -Smoking status:Former Smoker Packs/day:1.00 Types:Cigarettes Quit date:04/11/2021 Years since quittin.1 -Smokeless tobacco:Former User Vaping Use -Vaping Use:Former -Quit date:02/27/2019 Substance and Sexual Activity -Alcohol use:No -Drug use:No -Sexual activity:Never Other TopicsConcern -None Social History Narrative -None Social Determinants of Health Financial Resource Strain: Not on file Food Insecurity: Not on file Transportation Needs: Not on file Physical Activity: Not on file Stress: Not on file Social Connections: Not on file Intimate Partner Violence: Not on file Housing Stability: Not on file SURGICAL HISTORY History reviewed. No pertinent surgical history. CURRENT MEDICATIONS No current facility-administered medications for this encounter. Current Outpatient Medications MedicationSigDispenseRefill -FLUoxetine (PROZAC) 20 mg capsuleTake 1 capsule (20 mg total) by mouth daily for 14 days.14 capsule0 -loperamide (IMODIUM A-D) 2 mg tabletTake 1 tablet (2 mg total) by mouth 4 times a day as needed for Diarrhea.30 tablet0 -LORazepam (ATIVAN) 0.5 mg tabletTake 1 tablet (0.5 mg total) by mouth every 8 hours as needed for Anxiety.10 tablet0 -naproxen (NAPROSYN) 500 mg tabletTake 1 tablet (500 mg total) by mouth 2 times a day (with meals) for 7 days.14 tablet0 -ondansetron (ZOFRAN ODT) 4 mg disintegrating tabletTake 1 tablet (4 mg total) by mouth every 8 hours as needed for Nausea for up to 5 days.15 tablet0 -traZODone (DESYREL) 50 mg tabletTake 1 tablet (50 mg total) by mouth at bedtime for 14 days.14 tablet0 ALLERGIES No Known Allergies PHYSICAL EXAM VITAL SIGNS: BP 141/92 Pulse 104 Temp 98.2 ?F (36.8 ?C) Resp 18 Ht 6' 3 (1.905 m) Wt 275 lb (124.7 kg) SpO2 100% BMI 34.37 kg/m? Constitutional: Well developed, Well nourished, no acute distress, Non-toxic appearance. HENT: Normocephalic, Atraumatic, Bilateral external ears normal, Oropharynx moist. Eyes: PERRL, EOMI, Conjunctiva normal. Neck: Normal range of motion, No tenderness, Supple, No stridor. Cardiovascular: Normal heart rate, Normal rhythm, No murmurs, No rubs, No gallops. Thorax AND Lungs: Normal breath sounds, No respiratory distress, No wheezing, No chest tenderness. Abdomen: Soft, No tenderness, No masses, Normal bowel sounds Skin: Warm, Dry, No erythema, No rash. Back: No tenderness, Normal inspection, No CVA tenderness. Extremities: Intact distal pulses, No edema, No tenderness, No cyanosis, No clubbing. Musculoskeletal: Good range of motion in all major joints. No tenderness to palpation or major deformities noted. Neurologic: Alert AND oriented x 3, Normal motor function, Normal sensory function, No focal deficits n (more content not included)... Normal [facility] EXTRA TUBE-PSTon 06-17-2021 EXTRA TUBE Received Normal [facility] Comment on above: Performed By: #### L [id number] #### [facility] [address] [place] [address] Performed By: #### L [id number] #### [facility] [address] [place] [address] EXTRA TUBE-PST [facility] Comment on above: Result Comment: Rele ase to patient->Immediate Performed By: #### L [id number] #### [facility] [address] [place] [address] EXTRA TUBE-PURPLEon 06-17-19 EXTRA TUBE-PURPLE Normal [facility] Comment on above: Result Comment: Rele ase to patient->Immediate Performed By: #### L [id number] #### [facility] [address] [place] [address] ED Provider Noteson 06-15-19 ED Provider Notes Encounter Department : [facility] EMERGENCY ED Provider Notes by Jesenia Sol MD at 06/15/2021 4:02 PM Author: DEMETRIUS Herediaervice: -Author Type: ED Physician Filed: 06/15/2021 4:21 PMDate of Service: 06/15/2021 4:02 PMStatus: Signed Chief Engineer Research: Jesenia Sol MD (ED Physician) CHIEF COMPLAINT Chief Complaint Patient presents with -Medication Refill HPI Peter Jones is a 30 y.o. male who presents with complaints anxiety. Is a 30-year-old male known history of anxiety does see a counselor comes emerge apartment with complaints of needing a medication other than hydralazine. Patient states he went to his counselor's office today. He has been placed on hydralazine. Patient states he has been taking that for some time and it makes him very sleepy. He states he went back to his counselor's office today also recommended that he be placed on Ativan through his primary care physician. Patient called his primary care physician is unable to get in for approximately 2 weeks. The patient called his counselor back and they told to come the ER for evaluation. He states he is not suicidal homicidal he is just very anxious. REVIEW OF SYSTEMS CONSTITUTIONAL:Denies fever, chills EYES: Denies vision changes ENT: Denies sore throat or ear pain CARDIOVASCULAR: Denies chest pain, palpitations RESPIRATORY: Denies cough or shortness of breath GI: Denies abdominal pain, nausea, vomiting, or diarrhea : Denies urinary frequency, urgency or dysuria MS:Denies back pain SKIN: Denies rash NEUROLOGIC: Denies headache, focal weakness or sensory changes ENDOCRINE: Denies polyuria or polydypsia LYMPHATIC: Denies swollen glands PSYCHIATRIC: Denies depression, suicidal ideation or homicial ideation PAST MEDICAL HISTORY History reviewed. No pertinent past medical history. FAMILY HISTORY No family history on file. SOCIAL HISTORY Social History Socioeconomic History -Marital status: Spouse name:None -Number of children:None -Years of education:None -Highest education level:None Occupational History -None Tobacco Use -Smoking status:Former Smoker Packs/day:1.00 Types:Cigarettes Quit date:04/11/2021 Years since quittin.1 -Smokeless tobacco:Former User Vaping Use -Vaping Use:Former -Quit date:02/27/2019 Substance and Sexual Activity -Alcohol use:No -Drug use:No -Sexual activity:Never Other TopicsConcern -None Social History Narrative -None Social Determinants of Health Financial Resource Strain: Not on file Food Insecurity: Not on file Transportation Needs: Not on file Physical Activity: Not on file Stress: Not on file Social Connections: Not on file Intimate Partner Violence: Not on file Housing Stability: Not on file SURGICAL HISTORY History reviewed. No pertinent surgical history. CURRENT MEDICATIONS Outpatient Medications Marked as Taking for the 06/15/21 encounter (Hospital Encounter) MedicationSigDispenseRefill -loperamide (IMODIUM A-D) 2 mg tabletTake 1 tablet (2 mg total) by mouth 4 times a day as needed for Diarrhea.30 tablet0 -naproxen (NAPROSYN) 500 mg tabletTake 1 tablet (500 mg total) by mouth 2 times a day (with meals) for 7 days.14 tablet0 -ondansetron (ZOFRAN ODT) 4 mg disintegrating tabletTake 1 tablet (4 mg total) by mouth every 8 hours as needed for Nausea for up to 5 days.15 tablet0 ALLERGIES No Known Allergies PHYSICAL EXAM VITAL SIGNS: ED Triage Vitals [06/15/21 1605] BP(Abnormal) 156/103 Temp98.3 ?F (36.8 ?C) Pulse67 Resp20 IxV613 % Bcejiw211 lb (127 kg) [place] Coma Scale Score15 BMI (Calculated)35.1 Constitutional: Non-toxic appearance HENT: Normocephalic, Atraumatic, Bilateral external ears normal, Oropharynx moist, No oral exudates, Nose normal Eyes: Conjunctiva normal, No discharge Neck: Normal range of motion, No tenderness, No nuchal rigidity Lymphatic: No lymphadenopathy noted Cardiovascular: Normal heart rate, Normal rhythm, No murmurs Thorax AND Lungs: Lung sounds normal Abdomen: Bowel sounds present, Soft, Nontender Skin: Warm, Dry, No rash Back: No CVA tenderness Rectal / Genital: Deferred Extremities: Intact distal pulses, No edema, No tenderness, No cyanosis Musculoskeletal: Good range of motion in all major joints. No major deformities noted Neurologic: Normal motor function, Normal sensory function, No focal deficits noted Psychiatric: Affect normal RADIOLOGY/PROCEDURES None Last Imaging results No results found for this visit on 06/15/21. LABS None No data to display COURSE AND MEDICAL DECISION MAKING Blood Pressure (Abnormal) 156/103 Pulse 67 Temperature 98.3 ?F (36.8 ?C) Respiration 20 Height 6' 3 (1.905 m) Weight 280 lb (127 kg) Oxygen Saturation 99% Body Mass Index 35.00 kg/m? This is a 30-year-old male known history of anxiety comes emerged part with complaints of anxiety. Patient states that he has b (more content not included)... Normal [facility] BASIC METABOLIC PANELon 05-27 Anion gap [Moles/Vol] 11 mmol/L Normal 5-15 [facility] Comment on above: Performed By: #### L [id number] #### [place] [address] Calcium [Mass/Vol] 9.2 mg/dL Normal 8.5-10.5 [facility] Comment on above: Performed By: #### L [id number] #### [place] [address] Chloride [Moles/Vol] 111 mmol/L High 96-110 [facility] Comment on above: Performed By: #### L [id number] #### [place] [address] CO2 [Moles/Vol] 24 mmol/L Normal 19-32 [facility] Comment on above: Performed By: #### L [id number] #### [place] [address] Creatinine [Mass/Vol] 0.9 mg/dL Normal 0.5-1.4 [facility] Comment on above: Performed By: #### L [id number] #### [place] [address] ESTIMATED GFR 119 mL/min/1.73m*2 Normal >=60 [facility] Comment on above: Performed By: #### L [id number] #### [place] [address] Glucose [Mass/Vol] 81 mg/dL Normal 70-99 [facility] Comment on above: Performed By: #### L [id number] #### [facility] [place] [address] Potassium [Moles/Vol] 3.5 mmol/L Normal 3.4-5.3 [facility] Comment on above: Performed By: #### L [id number] #### [facility] [place] [address] Sodium [Moles/Vol] 146 mmol/L Normal 135-148 [facility] Comment on above: Performed By: #### L [id number] #### [facility] [place] [address] Urea nitrogen [Mass/Vol] 9 mg/dL Normal 3-29 [facility] Comment on above: Performed By: #### L [id number] #### [facility] [place] [id number] Urea nitrogen/Creatinine [Mass ratio] 10 mg/mg Normal 7-25 [facility] Comment on above: Performed By: #### L [id number] #### [facility] [place] [address] ED Provider Noteson 06-12-19 ED Provider Notes Encounter Department : [facility] EMERGENCY ED Provider Notes by Chato Roca MD at 06/12/2021 12:48 PM Author: DEMETRIUS Moralezervice: Emergency MedicineAuthor Type: ED Physician Filed: 06/14/2021 1:47 AMDate of Service: 06/12/2021 12:48 PMStatus: Signed Chief Engineer Research: Chato Roca MD (ED Physician) FINAL IMPRESSION: ICD-10-CM 1.Dehydration E86.0 2.Nausea vomiting and diarrhea R11.2 R19.7 3.Viral syndrome B34.9 PRESENTING CHIEF COMPLAINT: Chief Complaint Patient presents with -Diarrhea HPI: History obtained from patient Peter Jones is a 30 y.o. male who presents with 10 days of diarrhea and occasional vomiting since being diagnosed with COVID. There is some poorly localized, crampy abdominal pain. He is nauseated and has a poor appetite.. Diarrhea has been profuse and watery. There are several sick contacts with similar symptoms. Patient has used no medications for symptom relief to this point REVIEW OF SYSTEMS: General: Lightheadedness and malaise with no further fever Head: No headache Eyes: No blurry vision, double vision or pain behind eyes Ears/Nose Throat: No nasal congestion, epistaxis or sore throat. No ear pain or tinnitus Respiratory: No wheezing, cough or difficulty breathing Cardiac: No chest pain or palpitations Abdominal: Abdominal symptoms per HPI Genitourinary: No dysuria, frequency, urgency or hematuria Musculoskeletal: No muscle or joint pain Skin: No rash or irritation Hematologic: No easy bleeding or bruising Neurologic: No vertigo, numbness or focal weakness Psychiatric: Increasing anxiety PAST MEDICAL HISTORY: History reviewed. No pertinent past medical history. FAMILY HISTORY: No family history on file. SOCIAL HISTORY: Social History Socioeconomic History -Marital status: Spouse name:None -Number of children:None -Years of education:None -Highest education level:None Occupational History -None Tobacco Use -Smoking status:Former Smoker Packs/day:1.00 Types:Cigarettes Quit date:04/11/2021 Years since quittin.1 -Smokeless tobacco:Former User Vaping Use -Vaping Use:Former -Quit date:02/27/2019 Substance and Sexual Activity -Alcohol use:No -Drug use:No -Sexual activity:Never Other TopicsConcern -None Social History Narrative -None Social Determinants of Health Financial Resource Strain: Not on file Food Insecurity: Not on file Transportation Needs: Not on file Physical Activity: Not on file Stress: Not on file Social Connections: Not on file Intimate Partner Violence: Not on file Housing Stability: Not on file SURGICAL HISTORY: History reviewed. No pertinent surgical history. CURRENT MEDICATIONS: No outpatient medications have been marked as taking for the 06/12/21 encounter (Hospital Encounter). ALLERGIES: No Known Allergies PHYSICAL EXAM: VITAL SIGNS: ED Triage Vitals [06/12/21 1207] BP145/87 Temp96.6 ?F (35.9 ?C) Pulse60 Resp15 TsE184 % Pxbnnb174 lb (127 kg) Art Coma Scale Score15 BMI (Calculated)35.1 Constitutional: Well developed, Well nourished, appears stated age HENT: Normocephalic, Atraumatic, Bilateral external ears normal, Oropharynx moist, Nose normal. Eyes: PERRL, EOMI, Conjunctiva normal, No discharge. No scleral icterus. Neck: Normal range of motion, No tenderness, Supple, Lymphatic: No lymphadenopathy noted. Cardiovascular: Warm and well perfused. Normal heart rate, Normal rhythm, No murmurs, gallops or rubs. Thorax AND Lungs: Normal respiratory effort, no distress. Normal breath sounds without wheezing, nontender chest wall Abdomen: Soft, No tenderness, No masses, No pulsatile masses, not distended Skin: Visible skin is Warm, Dry, well perfused with normal capillary refill, No erythema, No rash. Extremities: No peripheral edema, No cyanosis, No clubbing. Musculoskeletal: Good range of motion in all major joints. No tenderness to palpation or major deformities noted. Neurologic: Alert AND oriented x 3, Normal motor function, Normal sensory function, No focal deficits noted. Psychiatric: Affect normal, Mood normal. COURSE AND MEDICAL DECISION MAKING: Pertinent Labs AND Imaging studies reviewed. (See chart for details) Medications 0.9 % sodium chloride 1,000 mL bolus ( Intravenous Stopped/Completed 06/12/21 1438) ondansetron (ZOFRAN) injection 4 mg (4 mg IV Push Given 06/12/21 1656) ketorolac (TORADOL) injection 15 mg (15 mg Intravenous Given 06/12/21 1356) 30 y.o. male with nausea and diarrhea, crampy abdominal pain since being diagnosed with COVID a week and a half ago. Probable viral enteritis related to COVID-19. Treated in ED with fluids and antiemetics with improvement, plan symptomatic management for home and PCP follow-up Diagnosis and treatment plan were discussed in detail with the patient and all present family members. They were given the opportunity to ask questions and agree with this plan of treatment (more content not included)... Normal [facility] ED Provider Noteson 04-26-20 21 ED Provider Notes Encounter Department : [facility]: EMERGENCY CENTER ED Provider Notes by Jose Enrique Wynne Jr., MD at 04/26/2021 11:52 AM Author: DEMETRIUS Currie Jr.ervice: Emergency MedicineAuthor Type: ED Physician Filed: 04/26/2021 11:57 AMDate of Service: 04/26/2021 11:52 AMStatus: Signed Chief Engineer Research: Jose Enrique Wynne Jr., MD (ED Physician) FINAL IMPRESSION ICD-10-CM 1.Anxiety state F41.1 2.Insomnia, unspecified type G47.00 DISPOSITION PLAN -Home DISCHARGE MEDICATION New Prescriptions FLUOXETINE (PROZAC) 20 MG CAPSULE Take 1 capsule (20 mg total) by mouth daily for 14 days. HYDROXYZINE (ATARAX) 50 MG TABLET Take 1 tablet (50 mg total) by mouth every 8 hours as needed for Anxiety for up to 7 days. TRAZODONE (DESYREL) 50 MG TABLET Take 1 tablet (50 mg total) by mouth at bedtime for 14 days. COURSE AND MEDICAL DECISION MAKING Repeat Vitals: BP: 125/84 (04/26 1048) Temp: 98.1 ?F (36.7 ?C) (04/26 1048) Pulse: 81 (04/26 1048) Resp: 18 (04/26 1048) SpO2: 96 % (04/26 1048) FiO2 (%): -- O2 Flow Rate (L/min): -- Cardiac (WDL): -- Cardiac Rhythm: -- Medications - No data to display 30-year-old man with a 2-week history of anxiety, depression symptoms, grief, without suicide or homicide ideation, worsened since discontinuing caffeine and nicotine. No polysubstance use, no prior history of suicide or homicide ideations or attempts, previous counseling only for anger management, no ongoing use of any antidepressant or anxiolytic medications. Has an appointment pending with primary care as well as with a counselor next week. He denies any visual or auditory hallucinations. His baseline and static risk factors are few, no prior suicide attempts, formal diagnosis of depression, history of ongoing substance abuse. His dynamic risk factors are negative including no agitation or psychosis, no intention on dying. He did present to the emergency department on his own accord and is open in discussion of his history, does partner in discussion of a safety plan and does have good social support and future orientation. I believe his suicide risk is low. After discussion I did agree to provide him a 2-week supply of Prozac, trazodone and Atarax to bridge him until he is established with primary care and counselor. Return precautions reviewed. CHIEF COMPLAINT Chief Complaint Patient presents with -Anxiety -Depression HPI History provided by the patient and so and is considered reliable. Peter Jones is a 30 y.o. male who presents with a 2-week history of anxiety, depression symptoms, grief, without suicide or homicide ideation, worsened since discontinuing caffeine and nicotine. No polysubstance use, no prior history of suicide or homicide ideations or attempts, previous counseling only for anger management, no ongoing use of any antidepressant or anxiolytic medications. Has an appointment pending with primary care as well as with a counselor next week. He denies any visual or auditory hallucinations. REVIEW OF SYSTEMS CONSTITUTIONAL:Denies fever, chills or weight loss EYES:Denies vision changes ENT:Denies sore throat or ear pain CARDIOVASCULAR:Denies chest pain, palpitations. No swelling RESPIRATORY:Denies cough or shortness of breath GI:No nausea. No vomiting or diarrhea. No abdominal pain :No urinary frequency or hematuria MS:Denies back pain or other joint pain SKIN:No rash NEUROLOGIC:Denies headache. No extremity weakness. No paresthesia. ENDOCRINE:Denies polydipsia or polyuria LYMPHATIC:Denies swollen glands PSYCHIATRIC:As above ALLERGIC:No pruritis or angioedema symptoms PAST MEDICAL HISTORY History reviewed. No pertinent past medical history. Above past medical conditions reviewed and verified by me. SURGICAL HISTORY History reviewed. No pertinent surgical history. SOCIAL HISTORY Lives at home. FAMILY HISTORY Non-contributory MEDICATIONS No outpatient medications have been marked as taking for the 04/26/21 encounter (Hospital Encounter). ALLERGIES No Known Allergies PHYSICAL EXAM VITAL SIGNS:ED Triage Vitals BP 04/26/21 1048 125/84 Temp 04/26/21 1048 98.1 ?F (36.7 ?C) Pulse 04/26/21 1048 81 Resp 04/26/21 1048 18 SpO2 04/26/21 1048 96 % Weight 04/26/21 1042 285 lb (129.3 kg) Art Coma Scale Score 04/26/21 1042 15 BMI (Calculated) 04/26/21 1042 35.7 CONSTITUTIONAL:Well developed, Well nourished, No acute distress, Non-toxic appearance. SKIN:Warm, Dry, No erythema, No rash. BACK:No tenderness, No CVA tenderness. NEUROLOGIC:Alert AND oriented x 3, Normal motor function, Normal sensory function, No focal deficits noted. PSYCHIATRIC:See below Mental status: normal Hygiene: Well kempt Mood AND Affect: Slightly depressed, congruent Eye Contact: Normal Attending to internal stimuli: Does not appear to be responding to auditory or visual halluci (more content not included)... Normal [facility] EKG STANDARD 12 LEADon 04-24 EKG STANDARD 12 LEAD HEART RATE= 56 bpm RR Interval= 1064 ms P-R Interval= 157 ms QRSD Interval= 109 ms QT Interval= 396 ms QTcB= 384 ms QRS Conneaut= 12 deg T Wave Conneaut= 8 deg REPORT= - NORMAL ECG - REPORT= Sinus rhythm INTERPRETING PHYS= Confirmed by: Phyllis Roca) 24-Apr-2021 21:18:42 Study Date/Time= Date and Time of Study: 2021-04-24 20:24:10 Normal [facility] BASIC METABOLIC PANELon 11-0 Anion gap [Moles/Vol] 10 mmol/L Normal 5-15 [facility] Comment on above: Performed By: #### L [id number] #### [place] [address] Calcium [Mass/Vol] 9.7 mg/dL Normal 8.5-10.5 [facility] Comment on above: Performed By: #### L [id number] #### [place] [address] Chloride [Moles/Vol] 108 mmol/L Normal 96-110 [facility] Comment on above: Performed By: #### L [id number] #### [place] [address] CO2 [Moles/Vol] 24 mmol/L Normal 19-32 [facility] Comment on above: Performed By: #### L [id number] #### [place] [address] Creatinine [Mass/Vol] 1.1 mg/dL Normal 0.5-1.4 [facility] Comment on above: Performed By: #### L [id number] #### [place] [address] ESTIMATED GFR 91 mL/min/1.73m*2 Normal >=60 [facility] Comment on above: Performed By: #### L [id number] #### [place] [address] Glucose [Mass/Vol] 103 mg/dL High 70-99 [facility] Comment on above: Performed By: #### L [id number] #### [place] [address] Potassium [Moles/Vol] 4.0 mmol/L Normal 3.4-5.3 [facility] Comment on above: Performed By: #### L [id number] #### [place] [address] Sodium [Moles/Vol] 142 mmol/L Normal 135-148 [facility] Comment on above: Performed By: #### L [id number] #### [place] [address] Urea nitrogen [Mass/Vol] 10 mg/dL Normal 3-29 [facility] Comment on above: Performed By: #### L [id number] #### [place] [address] Urea nitrogen/Creatinine [Mass ratio] 9 mg/mg Normal 7-25 [facility] Comment on above: Performed By: #### L [id number] #### [place] [address] Anion gap [Moles/Vol] 10 mmol/L [facility] Calcium [Mass/Vol] 9.7 mg/dL 8.5 - 10. 5 mg/dL [facility] Chloride [Moles/Vol] 108 mmol/L [facility] CO2 [Moles/Vol] 24 mmol/L [facility] Creatinine [Mass/Vol] 1.1 mg/dL 0.5 - 1.4 mg/dL [facility] GFR/1.73 sq M.predicted among blacks MDRD (S/P/Bld) [Vol rate/Area] 91 mL/min/{1.73_m2} >=60 mL/min/1.7 3m*2 [facility] Glucose [Mass/Vol] 103 mg/dL High 70 - 99 mg/dL [facility] Interpretation and review of laboratory results Abnormal [facility] Potassium [Moles/Vol] 4.0 mmol/L [facility] Sodium [Moles/Vol] 142 mmol/L [facility] Urea nitrogen [Mass/Vol] 10 mg/dL 3 - 29 mg/dL [facility] Urea nitrogen/Creatinine [Mass ratio] 9 mg/mg [facility] COMPLETE BLOOD COUNT WITH DI FFERENTIALon 03-31-2021 BASOPHILS ABSOLUTE COUNT (10*3/UL) BY AUTOMATED COUNT 0.1 K/uL Normal 0.0-0.3 [facility] Comment on above: Performed By: #### L [id number] #### [place] [address] BASOPHILS RELATIVE PERCENT BY AUTOMATED COUNT 0.9 % Normal 0.0-2.0 [facility] Comment on above: Performed By: #### L [id number] #### [place] [address] Eosinophils (Bld) [#/Vol] 0.1 10*3/uL Normal 0.0-0.5 [facility] Comment on above: Performed By: #### L [id number] #### [place] [address] EOSINOPHILS RELATIVE PERCENT BY AUTOMATED COUNT 1.3 % Normal 0.0-5.0 [facility] Comment on above: Performed By: #### L [id number] #### [place] [address] Erythrocyte distribution width (RBC) [Ratio] 12.1 % Normal <=15.0 [facility] Comment on above: Performed By: #### L [id number] #### [place] [address] Hematocrit (Bld) [Volume fraction] 44.0 % Normal 37.5-51.0 [facility] Comment on above: Performed By: #### L [id number] #### [place] [address] Hemoglobin (Bld) [Mass/Vol] 15.4 g/dL Normal 13.0-17.7 [facility] Comment on above: Performed By: #### L [id number] #### [place] [address] Immature granulocytes (Bld) [#/Vol] 0.0 10*3/uL Normal 0.0-0.1 [facility] Comment on above: Performed By: #### L [id number] #### [place] [id number] Immature granulocytes/100 WBC (Bld) 0.5 % Normal <1.0 [facility] Comment on above: Performed By: #### L [id number] #### [place] [address] LYMPHOCYTES ABSOLUTE COUNT (10*3/UL) BY AUTOMATED COUNT 1.3 K/uL Normal 0.9-4.1 [facility] Comment on above: Performed By: #### L [id number] #### [place] [address] LYMPHOCYTES RELATIVE PERCENT BY AUTOMATED COUNT 23.3 % Normal 14.0-51.0 [facility] Comment on above: Performed By: #### L [id number] #### [place] [address] MCH (RBC) [Entitic mass] 29.7 pg Normal 26.0-34.0 [facility] Comment on above: Performed By: #### L [id number] #### [place] [address] MCHC (RBC) [Mass/Vol] 35.0 g/dL Normal 30.7-35.5 [facility] Comment on above: Performed By: #### L [id number] #### [place] [address] MCV (RBC) [Entitic vol] 84.9 fL Normal 80.0-100.0 [facility] Comment on above: Performed By: #### L [id number] #### [place] [address] MEAN PLATELET VOLUME (FL) BY AUTOMATED COUNT 9.6 fL Normal 7.2-11.7 [facility] Comment on above: Performed By: #### L [id number] #### [place] [address] MONOCYTES ABSOLUTE COUNT (10*3/UL) BY AUTOMATED COUNT 0.4 K/uL Normal 0.2-1.0 [facility] Comment on above: Performed By: #### L [id number] #### [place] [address] MONOCYTES RELATIVE PERCENT BY AUTOMATED COUNT 7.7 % Normal 4.0-12.0 [facility] Comment on above: Performed By: #### L [id number] #### [place] [address] NEUTROPHILS ABSOLUTE COUNT (10*3/UL) BY AUTOMATED COUNT 3.7 K/uL Normal 1.8-7.5 [facility] Comment on above: Performed By: #### L [id number] #### [place] [address] NEUTROPHILS RELATIVE PERCENT BY AUTOMATED COUNT 66.3 % Normal 42.0-80.0 [facility] Comment on above: Performed By: #### L [id number] #### [place] [address] NRBC (PER 100 WBCS) BY AUTOMATED COUNT 0 /100 WBCs Normal <=0 [facility] Comment on above: Performed By: #### L [id number] #### [place] [address] PLATELETS (10*3/UL) BY AUTOMATED COUNT 208 K/uL Normal 140-400 [facility] Comment on above: Performed By: #### L [id number] #### [place] [address] RBC (Bld) [#/Vol] 5.18 10*6/uL Normal 4.14-5.80 [facility] Comment on above: Performed By: #### L [id number] #### [place] [address] WBC (Bld) [#/Vol] 5.6 10*3/uL Normal 3.5-10.9 [facility] Comment on above: Performed By: #### L [id number] #### [place] [address] Basophils (Bld) [#/Vol] 0.1 10*3/uL 0.0 - 0.3 K/uL [facility] Basophils/100 WBC (Bld) 0.9 % 0.0 - 2.0 % [facility] Eosinophils (Bld) [#/Vol] 0.1 10*3/uL 0.0 - 0.5 K/uL [facility] Eosinophils/100 WBC (Bld) 1.3 % 0.0 - 5.0 % [facility] Erythrocyte distribution width (RBC) [Ratio] 12.1 % <=15.0 [facility] Hematocrit (Bld) [Volume fraction] 44.0 % 37.5 - 51.0 % [facility] Hemoglobin (Bld) [Mass/Vol] 15.4 g/dL 13.0 - 17.7 g/dL [facility] Immature granulocytes (Bld) [#/Vol] 0.0 10*3/uL 0.0 - 0.1 K/uL [facility] Immature granulocytes/100 WBC (Bld) 0.5 % <1.0 [facility] Interpretation and review of laboratory results Normal [facility] Lymphocytes (Bld) [#/Vol] 1.3 10*3/uL 0.9 - 4.1 K/uL [facility] Lymphocytes/100 WBC (Bld) 23.3 % 14.0 - 51.0 % [facility] MCH (RBC) [Entitic mass] 29.7 pg 26.0 - 34.0 pg [facility] MCHC (RBC) [Mass/Vol] 35.0 g/dL 30.7 - 35.5 g/dL [facility] MCV (RBC) [Entitic vol] 84.9 fL 80.0 - 100.0 fL [facility] Monocytes (Bld) [#/Vol] 0.4 10*3/uL 0.2 - 1.0 K/uL [facility] Monocytes/100 WBC (Bld) 7.7 % 4.0 - 12.0 % [facility] Neutrophils (Bld) [#/Vol] 3.7 10*3/uL 1.8 - 7.5 K/uL [facility] Neutrophils/100 WBC (Bld) 66.3 % 42.0 - 80.0 % [facility] Nucleated cells (Bld) [#/Vol] 0 <=0 /100 WBCs [facility] Platelet mean volume (Bld) [Entitic vol] 9.6 fL 7.2 - 11.7 fL [facility] Platelets (Bld) [#/Vol] 208 10*3/uL 140 - 400 K/uL [facility] RBC (Bld) [#/Vol] 5.18 10*6/uL [facility] WBC corrected for nucl RBC Auto (Bld) [#/Vol] 5.6 K/uL 3.5 - 10.9 K/uL [facility] XR CHEST PA OR AP 1 VIEW (PO RTABLE)on 03-31-2021 XR CHEST PA OR AP 1 VIEW (PORTABLE) XR CHEST PA OR AP 1 VIEW (PORTABLE) CLINICAL HISTORY: [facility] COMMENTS: A single AP portable radiograph of the chest was performed with no previous studies available for comparison. The no focal infiltrates. The cardiomediastinal silhouette is unremarkable. IMPRESSION: No focal infiltrate. DICTATED BY: CHRISTIAN JASSO M.D.Workstation ID:[id number] Vertigo. Exam completed upright AP portable. Normal [facility] Vital Signs Date Time Vital Sign Value Performing Clinician Facility 09-04-2022 12:30-0400 Body height 190.5 cm Duncan Sawant Other [facility] Other 09-04-2022 12:30-0400 Body mass index (BMI) [Ratio] 31.24 kg/m2 Duncan Sawant Other [facility] Other 09-04-2022 12:30-0400 Body weight 113.4 kg Duncan Sawant Other [facility] Other 10-24-2021 18:18-0400 Body height 190.5 cm Joseluis Camp MD Work Phone: [employer] 10-24-2021 18:18-0400 Body mass index (BMI) [Ratio] 32.5 kg/m2 Joseluis Camp MD Work Phone: [employer] 10-24-2021 18:18-0400 Body temperature 97.5 [degF] Joseluis Camp MD Work Phone: [employer] 10-24-2021 18:18-0400 Body weight 117.94 kg Joseluis Camp MD Work Phone: [employer] 10-24-2021 18:18-0400 Diastolic blood pressure 104 mm[Hg] Joseluis Camp MD Work Phone: [employer] 10-24-2021 18:18-0400 Heart rate 78 /min Joseluis Camp MD Work Phone: [employer] 10-24-2021 18:18-0400 Respiratory rate 18 /min Joseluis Camp MD Work Phone: [employer] 10-24-2021 18:18-0400 SaO2% (BldA) [Mass fraction] 98 % Joseluis Camp MD Work Phone: [employer] 10-24-2021 18:18-0400 Systolic blood pressure 130 mm[Hg] Joseluis Camp MD Work Phone: [employer] 10-19-2021 12:55-0400 Body mass index (BMI) [Ratio] 32.32 kg/m2 Arabella Larson MD Work Phone: [employer] 10-19-2021 12:55-0400 Body temperature 97.59 [degF] Arabella Larson MD Work Phone: [employer] 10-19-2021 12:55-0400 Body weight 117.3 kg Arabella Larson MD Work Phone: [employer] 10-19-2021 12:55-0400 Diastolic blood pressure 89 mm[Hg] Arabella Larson MD Work Phone: [employer] 10-19-2021 12:55-0400 Heart rate 83 /min Arabella Larson MD Work Phone: [employer] 10-19-2021 12:55-0400 Respiratory rate 19 /min Arabella Larson MD Work Phone: [employer] 10-19-2021 12:55-0400 SaO2% (BldA) [Mass fraction] 99 % Arabella Larson MD Work Phone: [employer] 10-19-2021 12:55-0400 Systolic blood pressure 128 mm[Hg] Arabella Larson MD Work Phone: [employer] 09-09-2021 22:02-0400 Diastolic blood pressure 96 mm[Hg] Jodie Oglesby DO Work Phone: [employer] 09-09-2021 22:02-0400 Heart rate 72 /min Jodie Oglesby DO Work Phone: [employer] 09-09-2021 22:02-0400 Respiratory rate 18 /min Jodie Oglesby DO Work Phone: [employer] 09-09-2021 22:02-0400 SaO2% (BldA) [Mass fraction] 100 % Jodie Oglesby DO Work Phone: [employer] 09-09-2021 22:02-0400 Systolic blood pressure 158 mm[Hg] Jodie Oglesby DO Work Phone: [place] [employer] 09-09-2021 21:30-0400 Body mass index (BMI) [Ratio] 35 kg/m2 Jodie Oglesby DO Work Phone: [place] [employer] 09-09-2021 21:30-0400 Body temperature 98.29 [degF] Jodie Oglesby DO [facility] 09-09-2021 21:30-0400 Body weight 127 kg Jodie Oglesby DO Work Phone: [employer] 2021 18:12-0400 Diastolic blood pressure 64 mm[facility]Hg] [facility] Heart rate 73 /min [facility] 2021 18:12-0400 Respiratory rate 18 /min [facility] 18:12-0400 SaO2% (BldA) [Mass fraction] 98 % [facility] 18:12-0400 Systolic blood pressure 142 mm[Hg] [facility] 16:09-0400 Body height 190.5 cm [facility] 16:09-0400 Body mass index (BMI) [Ratio] 35 kg/m2 [facility] 2021 16:09-0400 Body temperature 96.69 [degF] [facility] 16:09-0400 Body weight 127.01 [facility] 03-31-2021 14:01-0400 Diastolic blood pressure 84 mm[Hg] Jt Alejandra DO Work Phone: [employer] 03-31-2021 14:01-0400 Heart rate 63 /min Jt Alejandra DO Work Phone: [facility] 03-31-2021 14:01-0400 SaO2% (BldA) [Mass fraction] 98 % Jt Alejandra DO Work Phone: [facility] 03-31-2021 14:01-0400 Systolic blood pressure 134 mm[Hg] Jt Alejandra DO Work Phone: [employer] 03-31-2021 11:51-0400 Body height 190.5 cm Jt Alejandra DO Work Phone: [employer] 03-31-2021 11:51-0400 Body mass index (BMI) [Ratio] 35 kg/m2 Jt Alejandra DO Work Phone: [employer] 03-31-2021 11:51-0400 Body temperature 98.29 [degF] Jt Alejandra DO Work Phone: [employer] 03-31-2021 11:51-0400 Body weight 127.01 kg Jt Alejandra DO Work Phone: [employer] 03-31-2021 11:51-0400 Respiratory rate 18 /min Jt Alejandra DO Work Phone: [employer] Encounters Encounter Date Encounter Type Care Provider Facility Start: 09-25-2022 Postop follow up vis it related to original px Duncan Sawant [facility] Start: 09-25-2022 End: 09-25-2022 ambulatory PHYSICIAN NO Count includes the [facility] [employer] Other Start: 09-25-2022 End: 09-25-2022 Patient encounter procedure PHYSICIAN NO [facility] Start: 09-11-2022 (Post-Op) Post-Op Duncan Sawant [facility] Start: 09-11-2022 End: 09-11-2022 ambulatory Duncan Sawant Other [facility] [employer] Other Start: 09-05-2022 End: 09-05-2022 ambulatory Duncan Sawant Facility:[facility] Start: 09-05-2022 End: 09-05-2022 ambulatory PHYSICIAN NO [facility] Work Phone: Start: 09-05-2022 End: 09-05-2022 Patient encounter procedure PHYSICIAN NO [facility] [address] Work Phone: Start: 09-04-2022 End: 09-04-2022 ambulatory Duncan Sawant Other [facility] Other Start: 09-04-2022 Office outpatient ne w [address] [facility] Start: 09-01-2022 End: 09-01-[address] DOCTOR OWENS Facility: Start: 04-06-2022 End: 04-06-2022 Emergency department patient visit TESFAYE PINO [facility] Start: 04-05-2022 End: 04-05-2022 Emergency department patient visit JENI BLANCAS [facility] Start: 04-04-2022 End: 04-04-2022 [facility] Start: 01-03-2022 End: 01-03-2022 Emergency department patient visit [facility] Start: 10-29-2021 End: 10-29-2021 [facility] Start: 10-29-2021 End: 10-29-2021 Emergency department patient visit GLENROY Ngo [facility] Start: 10-24-2021 End: 10-24-2021 Emergency department patient visit Joseluis Camp MD Work Phone: [facility] Start: 10-23-2021 End: 10-23-2021 Emergency department patient visit WEI DUNLAP [facility] Start: 10-19-2021 End: 10-19-2021 Emergency department patient visit GLENROY Huber [facility] Start: 10-19-2021 End: 10-19-2021 Emergency department patient visit Arabella Larson MD Work Phone: [facility] Start: 10-18-2021 End: 10-18-2021 Emergency department patient visit JOEY BURRIS [facility] Start: 10-01-2021 End: 10-01-2021 Emergency department patient visit JESENIA MADDIE [facility] Start: 09-25-2021 End: 09-25-2021 Emergency department patient visit HAYDEN ALVAREZ [facility] Start: 09-22-2021 End: 09-22-2021 Emergency department patient visit ERASMO ACEVES [facility] Start: 09-20-2021 End: 09-20-2021 Emergency department patient visit JOSE ENRIQUE WYNNE JR [facility] Start: 09-19-2021 End: 09-19-2021 Emergency department patient visit TEREASTANK PÉREZ [facility] Start: 09-18-2021 End: 09-18-2021 Emergency department patient visit JOEY BURRIS [facility] Start: 09-17-2021 End: 09-17-2021 Emergency department patient visit Mayte Jay [facility] Start: 09-13-2021 End: 09-13-2021 Emergency department patient visit JESENIA PERKINS [facility] Start: 09-11-2021 End: 09-11-2021 Emergency department patient visit Jesenia Lozano [facility] Start: 09-10-2021 Emergency department patient visit GLENROY [facility] Start: 09-10-2021 Emergency department patient visit GLENROYMonica KERR [facility] Start: 09-10-2021 End: 09-10-2021 Emergency department patient visit Martha Meier [facility] Start: 09-09-2021 End: 09-10-2021 Emergency department patient visit GLENROY Huber [facility] Start: 09-09-2021 End: 09-09-2021 Emergency department patient visit Jodie Oglesby DO Work Phone: [facility] Start: 09-04-2021 End: 09-04-2021 Emergency department patient visit DAVID RITTER [facility] Start: 08-29-2021 End: 08-29-2021 Emergency department patient visit JANEY BAILON [facility] Start: 2021 End: 2021 Emergency department patient visit [facility] Comment on above: Panic attack (Primar y Dx) Start: 08-09-2021 End: 08-09-2021 Emergency department patient visit GLENROY KERR [facility] Start: 06-17-2021 End: 06-17-2021 Emergency department patient visit CARL FERNANDEZ [facility] Start: 06-15-2021 End: 06-15-2021 Emergency department patient visit JESENIA SOL [facility] Start: 06-14-2021 End: 06-14-2021 Emergency department patient visit GLENROY Ngo [facility] Start: 06-12-2021 End: 06-12-2021 Emergency department patient visit CHATO ROCA [facility] Start: 04-26-2021 End: 04-26-2021 Emergency department patient visit JOSE ENRIQUE WYNNE JR [facility] Start: 04-24-2021 End: 04-24-2021 Emergency department patient visit ERASMO ACEVES [facility] Start: 03-31-2021 End: 03-31-2021 Emergency department patient visit Jt Omer Alejandra DO Work Phone: [facility] Procedures Date Procedure Procedure Detail Performing Clinician Start: 09-25-2022 Plain X-ray of left wrist PHYSICIAN NO FAMILY Start: 09-05-2022 CT of left wrist PHYSIC FLASH NO FAMILY Start: 2021 Assay of magnesium Eliazar Haney HOSTEL MANAGER - RISK ASSESSOR Work Phone: Start: 2021 Ecg routine ecg w/le ast 12 lds w/i&r Sheryl Millsether HOSTEL MANAGER - RISK ASSESSOR Work Phone: Start: 2021 Radiologic exam ches t single view Sheryl Haney HOSTEL MANAGER - RISK ASSESSOR Work Phone: Start: 03-31-2021 Basic metabolic 2000 panel - Serum or Plasma Aguila Fuentes PA-C Work Phone: Start: 03-31-2021 CBC W Auto Different ial panel - Blood Aguila Fuentes PA-C Work Phone: Start: 03-31-2021 COMPLETE BLOOD COUNT WITH DIFFERENTIAL Aguila Fuentes PA-C Work Phone: Plan of Treatment Date Care Activity Detail Author Start: 02-27-2030 DTaP/Tdap/Td vaccine (2 - Td or Tdap) DTaP/Tdap/Td vaccine (2 - Td or Tdap) [facility] Start: 12-24-2021 Refusal of treatment by patient INFLUENZA VACCINE [facility] Start: 01-24-2021 Influenza vaccination Flu vaccine (# 1) [facility] Start: 12-24-2020 Influenza vaccination INFLUENZA VACC INE [facility] Start: 12-24-2020 Refusal of treatment by patient INFLUENZA VACCINE [facility] Start: 08-12-2011 DTaP/Tdap/Td VACCINE S (1 - Tdap) DTaP/Tdap/Td VACCINES (1 - Tdap) [facility] Start: 2010 HEPATITIS C SCREENING HEPATITIS C SC REENING [facility] Start: 08-12-2007 HIV SCREENING HIV SCREENING [facility] Start: 08-12-2007 HIV screening HIV screen [facility] Start: 2004 COVID-19 VACCINE (1) COVID-19 VACCIN E (1) [facility] Start: 2004 Depression Screen Depression Screen [facility] Start: 1997 COVID-19 VACCINE (#1) COVID-19 VACCI NE (#1) [facility] Start: 1997 COVID-19 Vaccine (1) COVID-19 Vaccin e (1) [facility] Start: 08-12-1995 ANNUAL PREVENTIVE PHYSICAL (INCLUDES MAAP) ANNUAL PREVENTIVE PHYSICAL (INCLUDES MAAP) [facility] Start: 1993 Varicella vaccine (1 of 2 - 2-dose childhood series) Varicella vaccine (1 of 2 - 2-dose childhood series) [facility] Start: 1992 Hepatitis C screening [facility] EKG 12 Lead EKG 12 Lead ECG STAT 2021 5:00 PM EDT [facility] Work Phone: End: 03-31-2021 Radiologic exam chest single view [facility] Comment on above: Now for 1 Occurrence s starting 03/31/2021 until 03/31/2021 End: 03-31-2021 Standard ECG EKG Standard EKG STAT Now for 1 Occurrences starting 03/31/2021 until 03/31/2021 [facility] Work Phone: Comment on above: Now for 1 Occurrence s starting 03/31/2021 until 03/31/2021 Payers Date Payer Category Payer Self-pay [address] [facility] MEDICAID NON CONTRACTED [facility] MEDICAID NON CONTRACTED [id number] 2021-Present [address] [place] [address] HMO [id number] 2021 Medicaid [id number] 1992 Unknown [id number] 2.16.840.1.695013.3.579.2.201 1992 Unknown [id number] 2.16.840.1.042173.3.579.2.201 1992 Unknown [id number] 2.840.1.821941.3.579.2.201 1992 Unknown [id number] 2.16.840.1.100653.3.579.2.201 1992 Unknown [id number] 2.16.840.1.998736.3.579.2.201 1992 Unknown [id number] 2.16840.1.633503.3.579.2.201 1992 Unknown [id number] 2.16840.1.168813.3.579.2.201 1992 Unknown [id number] 2.16.840.1.093632.3.579.2.201 1992 Unknown [id number] 2.16.840.1.609402.3.579.2.201 1992 Unknown [id number] 2.16.840.1.611801.3.579.2.201 1992 Unknown [id number] 2.16840.1.711623.3.579.2.201 1992 Unknown [id number] 2.16840.1.598490.3.579.2.201 1992 Unknown [id number] 2.840.1.056152.3.579.2.201 1992 Unknown [id number] 2.16840.1.235673.3.579.2.201 1992 Unknown [id number] 2.840.1.517726.3.579.2.201 1992 Unknown [id number] 2.840.1.830520.3.579.2.201 1992 Unknown [id number] 2.840.1.844346.3.579.2.201 1992 Unknown [id number] 2.840.1.113384.3.579.2.201 1992 Unknown [id number] 2..1.644233.3.579.2.201 1992 Unknown [id number] 2.840.1.830288.3.579.2.201 1992 Unknown [id number] 2.840.1.627590.3.579.2.201 1992 Unknown [id number] 2.84.1.251115.3.579.2.201 1992 Unknown [id number] 2.84.1.557117.3.579.2.201 1992 Unknown [id number] 2.840.1.557981.3.579.2.201 1992 Unknown [id number] 2.840.1.219618.3.579.2.201 1992 Unknown [id number] 2.840.1.325719.3.579.2.201 1992 Unknown [id number] 2840.1.056416.3.579.2.593 1959 Medicaid [id number] Unknown [id number] 2.16.840.1.515836.3.579.2.246 Unknown [id number] 2.16.840.1.583457.3.579.2.246 Unknown [id number] 2.16.840.1.156260.3.579.2.246 Unknown [id number] 2.16.840.1.208176.3.579.2.246 Unknown [id number] 2.16.840.1.807693.3.579.2.246 Unknown [id number] 2.16.840.1.266262.3.579.2.246 Unknown [id number] 2.16.840.1.764941.3.579.2.531 Unknown [id number] 2.16.840.1.398243.3.579.2.531 Social History Date Type Detail Facility Start: 03-31-2021 Tobacco smoking stat [facility] History of tobacco use Cigarette Smoker [facility] Start: 03-31-2021 End: 10-24-2021 Tobacco use and exposure Smokeless tobacco non-user [facility] Start: 03-31-2021 End: 10-19-2021 Alcohol intake Current drinker of alcohol (finding) [facility] Start: 03-31-2021 History SDOH Alcohol Comment twice per week. 1-2 at dinner [facility] Start: 03-31-2021 Tobacco Comment 1.0 pack also vapes [facility] Start: 1990 Sex Assigned At Not on file P [facility] Start: 08-01-2021 End: 10-24-2021 Exposure to SARS-CoV-2 (event) Not sure [facility] Start: 2021 End: 10-24-2021 Tobacco smoking status OKIS Ex-smoker [employer] Work Phone: Start: 2021 Alcohol intake Lifetime non-d bri (finding) [employer] Work Phone: Start: 2021 History SDOH Alcohol Frequency 1 [employer] Work Phone: Start: 10-24-2021 Alcohol intake Ex-drinker (finding) [employer] Sex Assigned At Sex Assigned At Bir th [employer] Other Start: 1990 Sex Assigned At Male F [facility] Clinical Notes 03-31-2021 to 09-25-2022 Note Date & Type Note Facility 09-25-2022 Evaluation note Encounter Date Diagnosis Assessment Notes September, Other closed intra-articul ar fracture of distal end of left radius with routine healing, subsequent encounter (ICD-10 - S52.572D) Peter returns with left distal radius fracture. At this juncture we have discussed the findings and diagnosis as well as personally reviewed appropriate imaging and performed interpretation of related testing and examination with the patient in office today. He is presenting without his brace on today and I have recommended continued use of this for another 3 to 4 weeks. He can return to work in 2 weeks with use of brace. Follow-up here in 4 weeks for final x-rays and to discontinue brace The patient has been involved in our cooperative treatment plan and agrees to move forward with treatment at this time. Radiographs reviewed with patient. He is progressing well. He can plan to return to work as scheduled the week of 10/10/22. Advised he wear the brace at work until his next appt. [employer] Other 04-19-2023 Evaluation note* Encounter Date Diagnosis Assessment Notes Treatment Notes Treatment Clinical Notes Aug, Other closed intra-articular fracture of distal end of left radius with routine healing, subsequent encounter (ICD-10 - S52.572D) Peter returns with intra-articular left distal radius fracture for CT scan review. At this juncture we have discussed the findings and diagnosis as well as personally reviewed appropriate imaging and performed interpretation of related testing and examination with the patient in office today. Today we have reviewed the CT scan at bedside and with the nondisplaced nature of the injury I believe nonoperative treatment is reasonable. He does not want surgery. I have recommended a cast but he does not want to do this and wants to maintain his splint. I recommend that he stay in his splint at all times other than for hygiene purposes. Nonweightbearing to the left wrist. Follow-up in 2 weeks for repeat x-rays The patient has been involved in our cooperative treatment plan and agrees to move forward with treatment at this time. CT scan reviewed with patient today. Discussed with patient I will recommed a cast. Patient states he does not want a cast, he would prefer his splint. Instructed patient he may continue to wear splint at all times, may remove for hygine. Instructed patient to continue off work. Instructed patient to continue non weightbearing [employer] Other 04-12-2023 Evaluation note* Encounter Date Diagnosis Assessment Notes Treatment Notes Treatment Clinical Notes Aug, Other closed intra-articular fracture of distal end of left radius, initial encounter (ICD-10 - S52.572A) Peter presents with intra-articular left distal radius fracture. At this juncture we have discussed the findings and diagnosis as well as personally reviewed appropriate imaging and performed interpretation of related testing and examination with the patient in office today. Prior medical notes [facility] and history have been reviewed. At this time I would recommend CT scan of the wrist to evaluate the intra-articular involvement as well as displacement of this fracture. I explained to the patient that if there is gapping at the articular surface I would recommend surgery to treat this but he would like to avoid surgery at all cost. I would like to get the CT scan to make a better determination on recommendations. He is in a thumb spica splint at this time and should remain nonweightbearing to the left hand. After get the CT scan I will give him a call to discuss results. If we are able to move forward with nonoperative treatment I would recommend a cast. Will call with CT scan results and make follow-up recommendations. The patient has been involved in our cooperative treatment plan and agrees to move forward with treatment at this time. Xrays were reviewed with patient in detail. A CT scan will be necessary to see if a surgery is needed for the fracture to heal correctly. Patient will remain off of work for at least the next 8 weeks, a note was given. If surgery is not needed we will see patient back in office for a cast. Patient is in need of a thumb spica brace due to their diagnosis of a wrist fracture This is needed for aid in activities of daily living by increasing safety and stability. This will be needed for approximately 12 weeks Aug, Other See orders for this visit as documented in the electronic medical record. [facility] Other 11-16-2022 NoteEncounter Department: [facility] Progress Notes by BETSY Correa at 04/10/2022 11:02 AM Author: ALBERTINA Correaervice: -Author Type: Broadcast Program Director Filed: 04/10/2022 11:03 AMEncounter Date: 04/10/2022tatus: Signed Chief Engineer Research: BETSY Correa (Broadcast Program Director) Care Transitions (CT) SW discharged patient from [facility] 04/10/2022. SHERIDAN Ring LSW 04/10/2022 11:03 [facility]11-10-2022 NoteEncounter Department: [facility] Progress Notes by BETSY Correa at 04/04/2022 9:26 AM Author: ALBERTINA Correaervice: -Author Type: Broadcast Program Director Filed: 04/04/2022 9:27 AMEncounter Date: 04/04/2022tatus: Signed Chief Engineer Research: BETSY Correa (Broadcast Program Director) 04/04/2022 Case Review SHERIDAN Ring LSW 04/04/2022 9:26 [facility]10-12-2022 NoteEncounter Department: [facility] Progress Notes by BETSY Correa at 03/06/2022 11:05 AM Author: ALBERTINA Correaervice: -Author Type: Broadcast Program Director Filed: 03/06/2022 11:07 AMEncounter Date: 03/06/2022tatus: Signed Chief Engineer Research: BETSY Correa (Broadcast Program Director) 03/06/2022 Case Review SHERIDAN Ring LSW 03/06/2022 11:07 [facility]09-23-2022 NoteEncounter Department: [facility] Progress Notes by BETSY Correa at 02/15/2022 1:02 PM Author: ALBERTINA Correaervice: -Author Type: Broadcast Program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 Health[facility] noteNo assessment information availableC[facility] Work Phone: History general Narrative - Reported* Type Description Date Medical History left intra-articular distal radi us fracture NTQ-Data Other Reason for Referral Specialty Diagnoses / Procedures Referred By José Antonio bateman Referred To Contact Diagnoses Panic attack Sheryl Haney, HOSTEL MANAGER - RISK ASSESSOR [address] [place] [address] [facility] Pre-Services Referral ID Status Reason Start Date Expiration Date V isits Requested Visits Authorized [id number] Open Continuity of Care 2021 2022 1 1 Scheduling Instructions You will be contacted by [facility]'s central scheduling department within 3 business days to schedule your appointment with a [facility] primary care provider. Summary Purpose Family History No Family History Records FoundNo Family History Records FoundNo Family History Records FoundNo Family History Records FoundNo Family History Records Found Advance Directives No Advanced Directives Records Found Advance Directive Response Recorded Date/ Time Advance Directives No September 04, 2 023 2:20pm Chief Complaint and Reason for Visit Chief Complaint S52.572.A Additional Source Comments Reason for Visit (unrecogniz ed section and content) Reason Comments Vertigo Reason Comments Panic Attack pt c/o panic attack that started at work today, states has been having problems with this for 4 months, states feels like he is dying Reason Comments Anxiety Reason Comments Anxiety Dizziness Care Teams (unrecognized sec tion and content) Gis Manager Relationship Specialty Start Date End Date No [place], [place] [id number] PCP - General 03/31/21 Gis Manager Relationship Specialty Start Date End Date Glenroy Kerr, [address] [place] [id number] PCP - General Family Practice 06/14/21 Gis Manager Relationship Specialty Start Date End Date Glenroy Kerr DO [address] [place] [id number] PCP - General Family Practice 06/14/21 Team Status: Active Member Role Status Dates PHYSICIAN NO FAMILY Primary Care Provider Active Team Status: Inactive Member Role Status Dates Duncan Sawant DO Attending Provider Active PHYSICIAN NO FAMILY Primary Care Provider Active Team Status: Inactive Member Role Status Dates PHYSICIAN NO FAMILY Primary Care Provider Active Duncan Sawant DO Attending Provider Active Ordered Prescriptions (unrec ognized section and content) Prescription Sig Dispensed Refills Start Date End Da te hydrOXYzine (ATARAX) 25 MG tablet Take 1 tablet by mouth every 8 hours as needed for Itching 15 tablet 0 2021 hydrOXYzine (ATARAX) 25 MG tablet Take 1 tablet by mouth every 8 hours as needed for Itching 15 tablet 0 2021 2021 Scheduled Active and Recently Administ ered Medications (unrecognized section and content) Medication Order 08/09/2021 08/10/2021 2021 hydrOXYzine (ATARAX) tablet 25 mg (COMPLETED) 25 mg, Oral, ONCE, On 08/11/21 at 1645, For 1 dose 1713 (Given - Provid er: Hayden Mchugh RN) Scheduled Medication Order 09/07/2021 09/08/2021 09/09/2021 hydrOXYzine HCL (ATARAX) tablet 100 mg 100 mg, Oral, NOW, 1 dose, On 09/09/21 at [id number] (Not Given - Pr ovider: Vidya Reynolds RN - Reason: Refused) (unrecognized sect ion and content) No Status Records FoundNo Status Records FoundNo Status Records FoundNo Status Records FoundNo Status Records Found INFORMATION SOURCE (unrecogn ized section and content) DATE CREATED AUTHOR 10/25/2021 [facility] DATE CREATED AUTHOR AUTHOR'S ORGANIZ ATION 04/06/2022 [facility] DATE CREATED AUTHOR AUTHOR'S ORGANIZ ATION 04/11/2022 [facility] DATE CREATED AUTHOR AUTHOR'S ORGANIZ ATION 09/06/2022 [facility] DATE CREATED AUTHOR AUTHOR'S ORGANIZ ATION 11/01/2022 [facility] Goals (unrecognized section and content) Goals may be documented in a n alternate section FOR RECORDS PERTAINING TO PATIENTS WHO ARE OR HAVE BEEN ENROLLED IN A CHEMICAL DEPENDENCY/SUBSTANCEABUSE PROGRAM, SOME INFORMATION MAY BE OMITTED. This clinical summary was aggregated from multiple sources. Caution should be exercised in using it in the provision of clinical care. This summary normalizes information from multiple sources, and as a consequence, information in this document may materially change the coding, format and clinical context of patient data. In addition, data may be omitted in some cases. CLINICAL DECISIONS SHOULD BE BASED ON THE PRIMARY CLINICAL RECORDS. [facility] provides no warranty or guarantee of the accuracy or completeness of information in this document.
[2024-01-05] MEDS: BENZOCAINE 30 ML, lidocaine HCL 15 ML MM (21:15)
== END 2024-01-05 21:24 | disposition home or self-care (01) ==
PROVIDERS: Emergency Provider Emergency Medicine
DX: K02.9 Dental caries, unspecified (principal); K08.89 Other specified disorders of teeth and supporting structures; Z87.891 Personal history of nicotine dependence
CPT/HCPCS: 99284